=== PATIENT | male | born 1945 | race Caucasian/White ===

== ENCOUNTER → 2016-08-16 | Outpatient (CLI) | payer MEDICARE, OTHER ==
[2016-08-16 13:30] LABS: INR 2.71
== END ==
LOC: M WUC 10:25
PROVIDERS: ATTEND Family Medicine
DX: I48.1 Persistent atrial fibrillation (principal); Z51.81 Encounter for therapeutic drug level monitoring; Z79.01 Long term (current) use of anticoagulants

== ENCOUNTER → 2016-10-23 | Outpatient (CLI) | payer MEDICARE, OTHER ==
[2016-10-23 17:54] LABS: INR 3.86
== END ==
LOC: M WUC 15:16
PROVIDERS: ATTEND Family Medicine
DX: I48.1 Persistent atrial fibrillation (principal); Z51.81 Encounter for therapeutic drug level monitoring; Z79.01 Long term (current) use of anticoagulants

== ENCOUNTER 2016-11-13 08:12 | Inpatient (IN) | payer MEDICARE, OTHER ==
[~2016-11-13] VITALS: Ht 180.3 cm; Wt 151.5 kg
[2016-11-13] MEDS ORDERED: GABA-282 (09:21)
[2016-11-13] MEDS ORDERED: ALLO15TA (09:21)
[2016-11-13] MEDS ORDERED: MICA80TA (09:21)
[2016-11-13] MEDS ORDERED: FLUT1SPR2 (09:21)
[2016-11-13] MEDS ORDERED: SPIR25TA2 (09:21)
[2016-11-13] MEDS ORDERED: DOXA1TAB41 (09:21)
[2016-11-13] MEDS ORDERED: TOPR100T (09:21)
[2016-11-13] MEDS ORDERED: FURO40TA2 PO ×2 (09:21→14:54)
[2016-11-13] MEDS ORDERED: AMLO5TAB2 (09:21)
[2016-11-13] MEDS ORDERED: PRAV20TA2 (09:21)
[2016-11-13] MEDS ORDERED: WARF-23 (09:21)
--- NOTE | 2016-11-13 09:34 | ECGEPIP ---
Stationary ECG Study [facility] - ED Test Date: 2016-11-13 Pat Name: SEA CARLSON Department: Room: - Gender: M Assisted Living Housekeeper: estefanía : 1945 Requested By: ALEJANDRA Allen Order Number: [id number] Reading MD: Ji Montoya Measurements Intervals [place] Rate: 71 P: [place]: 0 QRS: 8 QRSD: 97 T: 2 QT: 411 QTc: 448 Interpretive Statements ATRIAL FLUTTER IN FIXED 4:1 RATIO ABNORMAL RHYTHM ECG NO PRIORS Electronically Signed On 11-13-2016 9:33:53 EDT by Ji Montoya
[2016-11-13 10:27] LABS: BASO % 0.2 % (0.0-1.0); EOS % 0.7 % (0.0-3.0); LARGE UNSTAINED CELL # 0.1 K/mm3 (0.0-0.4); LARGE UNSTAINED CELL % 0.9 % (0.0-4.0); LYMPH # 0.9 K/mm3 (1.5-4.5); LYMPH % 9.8 % (24.0-44.0); MEAN CORPUSCULAR HEMOGLOBIN 32.1 pg (27.0-33.0); MEAN CORPUSCULAR HGB CONC 34.2 g/dl (32.0-36.5); MONO # 0.4 K/mm3 (0.0-0.8); MONO % 4.8 % (0.0-5.0); NEUTROPHILS # 6.7 K/mm3 (1.8-7.7); NEUTROPHILS % 83.6 % (36.0-66.0); PLATELET COUNT, AUTOMATED 166 k/mm3 (150-450); RED CELL DISTRIBUTION WIDTH 14.2 % (11.5-14.5)
--- NOTE | 2016-11-13 10:30 | REP ---
CHEST, TWO VIEWS: Two views of the chest are performed. I have no prior study for comparison. There is mild streaky atelectasis or infiltrate in the left lower lobe. Heart does not appear to be significantly enlarged. Mediastinal silhouette is unremarkable. There are degenerative changes of the spine. IMPRESSION: Mild streaky left lower lobe atelectasis/infiltrate. Signed by Sukhi Dempsey MD 11/13/2016 05:24 P
[2016-11-13 10:47] LABS: ALBUMIN 3.7 GM/DL (3.2-5.2); ALBUMIN/GLOBULIN RATIO 1.09 (1.00-1.93); ALKALINE PHOSPHATASE 99 U/L (45-117); ALT/SGPT 22 U/L (12-78); ANION GAP 8 MEQ/L (8-16); AST/SGOT 12 U/L (15-37); BILIRUBIN,DIRECT 0.1 MG/DL (0.0-0.2); BILIRUBIN,TOTAL 0.5 MG/DL (0.2-1.0); BLOOD UREA NITROGEN 30 MG/DL (7-18); CALCIUM LEVEL 8.1 MG/DL (8.8-10.2); CARBON DIOXIDE LEVEL 25 MEQ/L (21-32); CHLORIDE LEVEL 104 MEQ/L (98-107); CREATININE FOR GFR 1.17 MG/DL (0.70-1.30); GLOMERULAR FILTRATION RATE > 60.0 (>42); GLUCOSE, FASTING 166 MG/DL (83-110); POTASSIUM SERUM 3.9 MEQ/L (3.5-5.1); SODIUM LEVEL 137 MEQ/L (136-145); TOTAL PROTEIN 7.1 GM/DL (6.4-8.2)
[2016-11-13 11:08] LABS: INR 5.75
[2016-11-13] MEDS ORDERED: ISOVUE-370 76% 100ML VIAL (Q9967) As Ordered ONE (11:36)
--- NOTE | 2016-11-13 12:12 | REP ---
CT HEAD WITHOUT CONTRAST: HISTORY: Left hand weakness. There is no intraparenchymal hemorrhage, infarct, mass or midline shift. The ventricular system is normal in appearance. The cortical sulci are dilated consistent with minimal volume loss. There is no extracerebral collection. The visualized sinuses are clear. IMPRESSION: Minimal volume loss. Signed by Dallas Urbina MD 11/13/2016 12:21 P
--- NOTE | 2016-11-13 12:31 | REP ---
CT of the chest, CT pulmonary angiography: There are no comparison studies. There are no emboli in the pulmonary trunk or central pulmonary arteries. I suspect there is an embolus in the left lower lobe main pulmonary artery on page 72. No other lobe or segment branch emboli are identified. There are no infiltrates, effusions or masses. There is discoid atelectasis in the left lower lobe. There is no mediastinal, hilar or axillary lymphadenopathy. The thoracic aorta is unremarkable. Cardiac size is borderline enlarged. In the visualized upper abdomen there is ascites surrounding the liver and spleen. Visualized portions of the gallbladder, pancreas, adrenals and renal upper poles are unremarkable. Impression: Embolus in the left lower lobe pulmonary artery. No other emboli are identified. There is discoid atelectasis in the left lower lobe. There is ascites in the visualized upper abdomen. Signed by Sukhi Bauer MD 11/13/2016 12:23 P
[2016-11-13] MEDS ORDERED: AMLO5TAB2 PO (14:54)
[2016-11-13] MEDS ORDERED: METO-209 PO (14:54)
[2016-11-13] MEDS ORDERED: PRAV20TA2 PO (14:54)
[2016-11-13] MEDS ORDERED: ZYLO300T4 PO (14:54)
[2016-11-13] MEDS ORDERED: SPIR25TA2 PO (14:54)
[2016-11-13] MEDS ORDERED: MOME50SP (14:54)
[2016-11-13] MEDS ORDERED: GABA-282 PO (14:54)
[2016-11-13] MEDS ORDERED: ASPI81TA21 PO (14:54)
[2016-11-13] MEDS ORDERED: TELM1TAB2 PO (14:54)
[2016-11-13] MEDS ORDERED: TYLE500T78 PO (14:54)
[2016-11-13] MEDS ORDERED: DOXA1TAB40 PO (14:54)
[2016-11-13] MEDS ORDERED: WARF-23 PO ×2 (14:55)
[2016-11-13] MEDS ORDERED: ACETAMINOPHEN TAB 650MG DOSE (2X325MG) PO PRN (15:15)
[2016-11-13 15:31] LABS: RETIC HEMOGLOBIN CONTENT CHr 32.6 PG (24-36); RETICULOCYTE ABSOLUTE ADVIA212 69 x10(9)/L (17-77)
[2016-11-13 15:34] LABS: FERRITIN 264 NG/ML (26-388); PERCENT SATURATION 11.8 % (19.7-37.4); TOTAL IRON BINDING CAPACITY 314 UG/DL (250-450)
[2016-11-13 15:53] LABS: AMYLASE 44 U/L (25-115)
--- NOTE | 2016-11-13 15:56 | HPEPDOC ---
General Date of Admission Nov 13, 2016 at 15:11 Chief Complaint The patient is a 71-year-old male Presented to the ER with complaints of LLQ abdominal pain, dizziness, light-headedness and shortness of breath on exertion. History of Present Illness Patient is a 71 year old male with a PMHx of A. fib (on Coumadin), HTN , SUSAN on CPAP, Neuropathy, DLP, Gout, and possibly CHF who presented to the ER with complaints of dizziness, light-headedness, shortness of breath with exertion and left lower quadrant abdominal pain. Patient notes that this LLQ abdominal pain started first on Saturday night and reported the pain as a continuous, 7/10, pressure / achy nature, occasionally radiating to the RLQ, no alleviating or aggravating factors. He denies any diarrhea, reports that he has about 3 bowel movements daily. Reports no abnormalities, including dark color, blood or mucous. He denies any nausea or vomiting. Denies any temporal relationship to food. Reports no change in his weight or appetite. He denies any fever or chills at home. He has had a colonoscopy [place] [address] Molina. Was reported to be normal without any polyps, diverticuli or other abnormalities noted by patient. Was advised that the next colonoscopy would be in 10 years. He denies any chest pain, palpitations, dysuria, muscle weakness / sensory loss. Home Medications Scheduled Allopurinol (Zyloprim) 300 Mg Tab 300 MG PO QHS (Reported) Amlodipine Besylate (Amlodipine Besylate) 5 Mg Tab 5 MG PO QHS (Reported) Aspirin (Aspir-Low) 81 Mg Tab 81 MG PO QHS (Reported) Doxazosin Mesylate (Doxazosin Mesylate) 4 Mg Tab 4 MG PO QHS (Reported) Furosemide (Furosemide) 40 Mg Tab 40 MG PO TID (Reported) Gabapentin (Gabapentin) 300 Mg Cap 300 MG PO TID (Reported) Metoprolol Succinate (Metoprolol Succinate ER) 100 Mg Tab 100 MG PO QHS ( Reported) Pravastatin Sodium (Pravastatin Sodium) 20 Mg Tab 20 MG PO QHS (Reported) Spironolactone (Spironolactone) 25 Mg Tab 25 MG PO DAILY (Reported) Telmisartan (Telmisartan) 80 Mg Tab 80 MG PO QHS (Reported) Warfarin Sod (Warfarin Sodium) 5 Mg Tab 12.5 MG PO 3XW (Reported) SAT, SAT, AND SATURDAY @ BEDTIME Warfarin Sod (Warfarin Sodium) 5 Mg Tab 15 MG PO 2XW (Reported) SATURDAY AND SATURDAY @ BEDTIME Scheduled PRN Acetaminophen (Tylenol Extra Strength) 500 Mg Tab 1,000 MG PO TID PRN PRN PAIN ( Reported) Mometasone Furoate Monohydrate (Nasonex) 120 [place]/17 Gm Naspr 2 SPRAY NA DAILY PRN PRN CONGESTION (Reported) Allergies Coded Allergies: No Known Allergies (Unverified , 11/13/16) Past Medical History Medical History A. fib (on Coumadin), HTN, SUSAN on CPAP, Neuropathy, DLP, Gout, and possibly CHF Surgical History None Family History - Non-contributory Social History - Denies the use of illicit drugs; Social alcohol use; Quit smoking in 1978 and smoked for >30 years at 3ppd - Denies recent travel or sick contacts - Lives with Review of Symptoms Other systems Constitutional: Denies weight loss, change in appetite, or recent trauma Eyes: No visual changes or eye pain Ears, Nose, Throat: Denies nose bleeds, or difficulty swallowing Cardiovascular: Denies chest pain, sweating, or orthopnea Respiratory: Denies cough or wheezing, Posiitve shortness of breath GI: Zana nausea, vomiting, diarrhea or constipation; Positive abdominal pain : Denies pain with urination or frequency Musculoskeletal: Denies joint pain or swelling Neuro / Psych: Denies muscle weakness or sensory loss Skin: No skin rashes noted All other review of systems negative; otherwise stated in history of present illness Vital Signs - Vitals: BP 119/59, HR 84, RR 16, Sat 96%RA, Temp 98.3 - General: Lying in bed, No acute distress, Speaking in full sentences, AAOx3 - HEENT: NC, AT, PERRLA, EOMI - CVS: Irregularly irregular, +S1S2 - Lungs: Fair air entry bilaterally, Clear to auscultation, No wheezing / rales / rhonchi - Abdomen: Soft, Non-distended, Mild tenderness at LLQ, + Bowel sounds x 4 - Extremities: + PPx4, No lower extremity edema, No calf tenderness - Neuro: No focal motor or sensory deficit - Skin: No visible rashes Laboratory Data Labs 24H Laboratory Tests 2 11/13/16 10:04: Absolute Reticulocyte Count 69, Aspartate Amino Transf (AST/SGOT) 12L, Alanine Aminotransferase (ALT/SGPT) 22, Alkaline Phosphatase 99, Total Bilirubin 0.5, Direct Bilirubin 0.1, Albumin 3.7, Albumin/Globulin Ratio 1.09, Anion Gap 8, White Blood Count 8.0, Red Blood Count 2.84L, Hemoglobin 9.1L, Hematocrit 26.7L , Mean Corpuscular Volume 94.0, Mean Corpuscular Hemoglobin 32.1, Mean Corpuscular Hemoglobin Concent 34.2, Red Cell Distribution Width 14.2, Platelet Count 166, Neutrophils (%) (Auto) 83.6H, Lymphocytes (%) (Auto) 9.8L, Monocytes (%) (Auto) 4.8, Eosinophils (%) (Auto) 0.7, Basophils (%) (Auto) 0.2, Neutrophils # (Auto) 6.7, Lymphocytes # (Auto) 0.9L, Monocytes # (Auto) 0.4, Eosinophils # (Auto) 0.0, Basophils # (Auto) 0.0, Calcium Level 8.1L, Ferritin 264, Glomerular Filtration Rate > 60.0, Iron Level 37L, Large Unclassified Cells # 0.1, Large Unclassified Cells % 0.9, Percent Reticulocyte Count 2.50H, Prothromb Time International Ratio 5.75*H, Prothrombin Time 51.6H, Reticulocyte Hgb Content (CHr) 32.6, Thyroid Stimulating Hormone (TSH) 2.990, Total Iron Binding Capacity 314, Total Protein 7.1, Transferrin % Saturation 11.8L 11/13/16 13:01: Urine Amorphous Sediment , Urine Appearance CLEAR, Urine Color YELLOW, Urine pH 5.0, Urine Specific [place] 1.030, Urine Protein NEGATIVE, Urine Glucose (UA) NEGATIVE, Urine Ketones NEGATIVE, Urine Urobilinogen 0.2, Urine Bilirubin NEGATIVE, Urine Leukocyte Esterase NEGATIVE, Urine Bacteria (Auto) NEGATIVE, Urine Blood NEGATIVE, Urine Calcium Carbonate Cryst(Auto) , Urine Calcium Oxalate Cryst (Auto) , Urine Calcium Phosphate Hui (Auto) , Urine Cellular Casts , Urine Cystine Crystals , Urine Granular Casts (Auto) , Urine Hyaline Casts (Auto) 6, Urine Leucine Crystals , Urine Mucus (Auto) SMALL, Urine Nitrite NEGATIVE, Urine Oval Fat Bodies (Auto) , Urine RBC (Auto) 0, Urine Renal Epithelial Cells , Urine Sperm (Auto) , Urine Squamous Epithelial Cells 1 , Urine Transitional Epithelial Cells , Urine Trichomonas (Auto) , Urine Triple Phosphate Cryst (Auto) , Urine Tyrosine Crystals , Urine Uric Acid Crystals ( Auto) , Urine WBC (Auto) 2, Urine Waxy Casts (Auto) , Urine Yeast-Like Cells ( Auto) CBC/BMP Laboratory Tests 11/13/16 10:04 Red Blood Count 2.84 L, Mean Corpuscular Volume 94.0, Mean Corpuscular Hemoglobin 32.1, Mean Corpuscular Hemoglobin Concent 34.2, Red Cell Distribution Width 14.2, Neutrophils (%) (Auto) 83.6 H, Lymphocytes (%) (Auto) 9.8 L, Monocytes (%) (Auto) 4.8, Eosinophils (%) (Auto) 0.7, Basophils (%) (Auto ) 0.2, Neutrophils # (Auto) 6.7, Lymphocytes # (Auto) 0.9 L, Monocytes # (Auto) 0.4, Eosinophils # (Auto) 0.0, Basophils # (Auto) 0.0 Plan / VTE VTE Prophylaxis Ordered?: Yes Plan Plan Abdominal pain - possibly 2/2 abscess, possibly malignancy, possibly hematoma - Presented with abdominal pain since Saturday; No associated fever / chills - WBC count appears to be elevated from a baseline level of <5 with a neutrophil predominant shift - CT abdomen / pelvis reveals a possible abscess and diverticula, possibly malignancy - Will check Amylase and Lipase - Will get blood cultures, trend CRP - Will reverse the effects of Coumadin; Vitamin K 5mg IV, 2 units of FFP, 2 units of PRBC (Discussed risks and benefits of reversing Coumadin to patient - given that there are possible findings of thrombosis at pulmonary arteries) - Will start Zosyn (coverage of gram negative and anaerobes) - Will repeat imaging in 24-48 hours to evaluate stabilization of Hematoma - Discussed with Surgery (Dr. Castle) - will be on consult; agreed that reversing Coumadin at this time would be indicated given hematoma and supra- therapeutic INR Normocytic anemia - Hg baseline of 13-14; currently at 9 - Will type and screen, check Iron panel, reticulocyte count - Will follow H&H q6 hours - Will transfuse 2units PRBC at this time and reverse effects of Coumadin Supra-therapeutic INR - INR of 5.75 - Has not had any recent change in dose - Will hold Coumadin tonight - Will reverse Coumadin with Vitamin K 5 mg IV and 2 units FFP - Follow up AM INR Suspected left lower lobe pulmonary artery embolus - less likely given supra- therapeutic INR and other findings on imaging - CTA chest shows suspected LL pulmonary artery embolus, and discoid atelectasis on the LLL - Given clinical picture of bleeding into Hematoma, Hg significantly lower than baseline, supra-therapeutic INR will need to reverse Coumadin first - Will reverse effects of Coumadin - Risks and benefits discussed with patient - Will keep in PCU for further monitoring - Will need to repeat imaging in 24-48 hours to re-evaluate suspected embolus Elevated glucose possibly reactive - will check HbA1c A. fib - Will continue with rate control with metoprolol - Will hold Coumadin given elevated INR HTN - Will c/w metoprolol and amlodipine - Will hold Doxasozin and Telmesartan SUSAN on CPAP - allow home CPAP use Neuropathy - c/w gabapentin DLP - c/w pravastatin Gout - c/w allopurinol Possibly CHF - no ECHO report available - Has been on spironolactone / Lasix at home - Will hold diuretics at this time Gastrointestinal prophylaxis - Will start protonix DVT prophylaxis - On full anticoagulation with Coumadin; but will hold given elevated INR - Will start SCDs ZOILA GAMING MD Nov 13, 2016 15:56
[2016-11-13] MEDS: PIPERACILLIN/TAZOBACTAM SOD 3.375 GM in D5W MINI-BAG PLUS 50 ML IV SCH (15:57)
[2016-11-13] MEDS: NS 1,000 ML IV SCH (15:57)
[2016-11-13] MEDS ORDERED: FLUTICASONE PROP 0.05% NASAL SPRAY 16 GM (FLONASE) PRN (16:00)
[2016-11-13] MEDS: GABAPENTIN 300 MG CAP PO SCH ×2 (17:32→21:56)
[2016-11-13] MEDS: PANTOPRAZOLE 40MG TAB (PROTONIX) PO SCH (17:32)
[2016-11-13] MEDS ORDERED: FUROSEMIDE 40 MG TAB PO SCH (18:00)
[2016-11-13] MEDS ORDERED: PHYTONADIONE INJection 5 MG in NS 50 ML IV ONE (18:30)
[2016-11-13 20:00] VITALS: BP 112/60
--- NOTE | 2016-11-13 20:17 | CR ---
DATE OF CONSULTATION: 11/13/2016 CHIEF COMPLAINT: Abdominal pain, abnormal CT scan. BRIEF HISTORY OF PRESENT ILLNESS: The patient is a 71-year-old male who presents to the emergency room with a several day history of abdominal pain, left lower quadrant, some dizziness, lightheadedness and shortness of breath on exertion. Essentially he comes to the emergency room with a supratherapeutic INR and underwent a CT scan which revealed some abnormalities concerning for possible mass on the colon, although when I review it, I feel that this is more likely a hematoma and he has some fluid collections under the diaphragm bilaterally, which tracked down into the paracolic gutters bilaterally. In any case, he has not had any blood per rectum, has not had any lower gastrointestinal (GI) complaints. No nausea, no vomiting. No fevers. No chills. Has had this pain for about 3 days now and states that this has been painful with activity, pain that extends across the lower abdomen and more importantly, notices that the pain is more like a pressure sensation. He has had no fevers, no chills. No evidence of diverticular abscesses or diverticulitis in the past. Medications include: allopurinol, amlodipine, aspirin, doxazosin, Lasix, gabapentin, metoprolol, pravastatin, spirolactone, telmisartan , Coumadin. Past medical history significant for atrial fibrillation, hypertension, obstructive sleep apnea, diabetes mellitus, diabetic neuropathy, gout, congestive heart failure (CHF). Physical exam reveals a morbidly obese male who looks stated age. HEENT is unremarkable. Neck: Supple without adenopathy. Lungs: Clear to a auscultation without crackles, wheezes or rhonchi. However, they are substantially diminished at the bases. Heart is irregularly irregular. Abdomen is mildly distended. Mild tenderness in the left lower quadrant, left-sided and almost left flank area but closer to the left lateral abdomen is a better description of this. He has no peritoneal signs. No guarding, no rebound. He has an ecchymosis on his right anterior abdomen, and there is some duskiness to the abdominal wall in the left lateral abdomen. It is hard to tell if this is a deep ecchymosis present, but he has not noticed this in the past. His white count is normal, but he is anemic. His INR is 5.75. IMPRESSION AND PLAN: The patient has abdominal pain. The question initially was whether this was an abdominal mass or an abscess, but I feel that this is much more likely to be a hematoma and possibly intraperitoneal bleed. My recommendation at this time is to reverse his anticoagulation, although I do feel that this has to be somewhat gingerly performed because of the questionable pulmonary embolism, although that would seem very unlikely in someone who is supratherapeutic. However, once again, I do feel that it is reasonable to at least start his reversal of his anticoagulation and follow his hematocrit closely. Of course, proceeding with a colonoscopy at some point in the future is reasonable given that it has been several years since his last colonoscopy, but I feel that this is a very low likelihood that it is colonic in etiology. This can be performed as an outpatient unless he starts having some gastrointestinal (GI) complaints associated with his current admission. Otherwise, if he stabilizes, and his abdominal pain is well controlled, I feel that he should be able to be discharged to home with followup colonoscopy as an outpatient. PJ
[2016-11-13] MEDS: PRAVASTATIN 20 MG TAB PO SCH (21:31)
[2016-11-13] MEDS: ALLOPURINOL 300 MG TAB PO SCH (21:31)
[2016-11-13] MEDS: TELMISARTAN 20 MG TAB PO SCH (21:32)
[2016-11-13] MEDS: METOPROLOL SUCC (TopROL XL) 100MG *XL* TAB PO SCH (21:32)
[2016-11-13] MEDS: amLODIPine 5 MG TAB PO SCH (21:56)
[2016-11-13] MEDS: ASPIRIN 81 MG ENTERIC TAB PO SCH (22:11)
[2016-11-14] VITALS (7 sets, daily range): BP systolic 109–135; BP diastolic 55–86
[2016-11-14] MEDS ORDERED: diphenhydrAMINE INJ 50MG/ML VIAL (J1200) As Ordered ONE (01:05)
[2016-11-14] MEDS ORDERED: ZOSYN 3.375 GM VIAL (J2543) As Ordered ONE (01:10)
[2016-11-14] MEDS: PIPERACILLIN/TAZOBACTAM SOD 3.375 GM in D5W MINI-BAG PLUS 50 ML IV SCH ×3 (01:30→16:25)
[2016-11-14 07:23] LABS: BASO % 0.1 % (0.0-1.0); EOS # 0.1 K/mm3 (0.0-0.50); EOS % 1.7 % (0.0-3.0); LARGE UNSTAINED CELL # 0.1 K/mm3 (0.0-0.4); LARGE UNSTAINED CELL % 1.4 % (0.0-4.0); LYMPH # 1.1 K/mm3 (1.5-4.5); LYMPH % 16.9 % (24.0-44.0); MEAN CORPUSCULAR HEMOGLOBIN 31.6 pg (27.0-33.0); MEAN CORPUSCULAR HGB CONC 33.8 g/dl (32.0-36.5); MEAN CORPUSCULAR VOLUME 93.5 fl (80.0-96.0); MONO # 0.4 K/mm3 (0.0-0.8); MONO % 7.2 % (0.0-5.0); NEUTROPHILS # 4.3 K/mm3 (1.8-7.7); NEUTROPHILS % 72.8 % (36.0-66.0); PLATELET COUNT, AUTOMATED 140 k/mm3 (150-450); RED CELL DISTRIBUTION WIDTH 14.3 % (11.5-14.5); WHITE BLOOD COUNT 5.9 K/mm3 (4.0-10.0)
[2016-11-14 07:34] LABS: INR 1.52
[2016-11-14 07:48] LABS: ALBUMIN 3.5 GM/DL (3.2-5.2); ALBUMIN/GLOBULIN RATIO 1.25 (1.00-1.93); ALKALINE PHOSPHATASE 89 U/L (45-117); ALT/SGPT 20 U/L (12-78); ANION GAP 8 MEQ/L (8-16); AST/SGOT 15 U/L (15-37); BILIRUBIN,TOTAL 1.5 MG/DL (0.2-1.0); BLOOD UREA NITROGEN 29 MG/DL (7-18); CALCIUM LEVEL 7.8 MG/DL (8.8-10.2); CARBON DIOXIDE LEVEL 25 MEQ/L (21-32); CHLORIDE LEVEL 103 MEQ/L (98-107); CREATININE FOR GFR 1.11 MG/DL (0.70-1.30); GLOMERULAR FILTRATION RATE > 60.0 (>42); GLUCOSE, FASTING 147 MG/DL (83-110); MAGNESIUM LEVEL 2.2 MG/DL (1.8-2.4); PHOSPHORUS LEVEL 2.7 MG/DL (2.5-4.9); POTASSIUM SERUM 3.8 MEQ/L (3.5-5.1); SODIUM LEVEL 136 MEQ/L (136-145); TOTAL PROTEIN 6.3 GM/DL (6.4-8.2)
[2016-11-14] MEDS: GABAPENTIN 300 MG CAP PO SCH ×3 (08:41→20:39)
[2016-11-14] MEDS: NS 1,000 ML IV SCH (08:41)
[2016-11-14] MEDS: PANTOPRAZOLE 40MG TAB (PROTONIX) PO SCH (08:41)
[2016-11-14] MEDS ORDERED: SPIRONOLACTONE 25 MG TAB PO SCH (09:00)
--- NOTE | 2016-11-14 09:12 | REP ---
CT abdomen pelvis with IV contrast: The study is a continuation of the CT of the chest utilizing the same IV contrast as for the chest CT. There are no comparison studies. There is ascites surrounding the liver and spleen. There is a small round hypodense 8 mm lesion in the right lobe of the liver, nonspecific. The gallbladder, pancreas and spleen are otherwise unremarkable. There is a 2.2 cm left adrenal nodule. Follow-up CT using adrenal protocol is recommended. The right adrenal is unremarkable. The right and left kidneys are unremarkable. The abdominal aorta is unremarkable. There is a large mass along the peritoneal surface of the abdomen and pelvis on the left measuring 20 cm craniocaudad by 13 cm AP containing multiple hypo densities. This is immediately adjacent to the descending colon. There are multiple diverticula in the descending colon. This mass could represent a large complex diverticular abscess and phlegmon. There is no bowel distension or obstruction. Pelvis: There is no ascites. Bladder is unremarkable. There is no adenopathy. There are numerous diverticula in the descending colon and sigmoid colon. Impression: There is a large mass along the peritoneum of the abdomen and pelvis on the left adjacent to the descending colon. The colon contains multiple diverticula. This mass contains multiple low density foci and could represent a large complex diverticular abscess. Neoplasm is another possibility. There is ascites surrounding the liver and spleen. There is a left adrenal nodule. Follow-up adrenal CT protocol for further evaluation is recommended. There is a small nonspecific hypodense nodule in the liver. Signed by Sukhi Bauer MD 11/14/2016 09:04 A
[2016-11-14] MEDS ORDERED: SODIUM BICARBONATE 8.4% INJ 50MEQ 50 ML VIAL As Ordered ONE (10:38)
[2016-11-14] MEDS ORDERED: ISOVUE-300 61% 50ML VIAL (Q9967) As Ordered ONE (10:38)
[2016-11-14] MEDS ORDERED: FUROSEMIDE 40 MG TAB PO ONE (14:45)
--- NOTE | 2016-11-14 15:06 | IPN ---
DATE: 11/14/2016 71-year-old male seen at bedside. No overnight issues reports. He feels that he is feeling better. He did have an IVC filter placed earlier this morning. His Coumadin has been on hold due to the abdominal mass with suspected intra-abdominal hematoma and supratherapeutic INR. OBJECTIVE: Temperature is 98.3, pulse 75, respiratory rate is 18, blood pressure 122/86, SpO2 is 97% on room air. GENERAL: The patient appears to be in no acute distress, alert, oriented and pleasant. LUNGS: Clear. HEART: Irregularly irregular. ABDOMEN: Obese. He does have a large hematoma noted on the right upper portion of the abdomen. EXTREMITIES: Trace edema but no calf tenderness. LABORATORY DATA: White count is 5.9, hemoglobin 8.0, platelets are 140,000. Sodium 136, potassium 3.8, chloride 103, bicarb 25, anion gap 8, BUN 29, creatinine 1.11, glucose is 147, calcium 7.8, phosphorous 2.7, magnesium 2.2, total bilirubin 1.5, AST 15, ALT 20, alkaline phosphatase 89, albumin 3.5, INR 1.52. Blood cultures are pending times two. ASSESSMENT/PLAN: 1. Abdominal pain possibly related to abscess versus malignancy versus possible hematoma. He did have a drop in his hemoglobin and hematocrit. Will go ahead and give him another 2 units of blood. Coumadin is currently on hold. Last night he did receive vitamin K, 2 units of FFP and 2 units of packed red blood cells. He does not appear to be actively bleeding anywhere. He is started on gram negative coverage and anaerobes with Zosyn. Per recommendations of Dr. Castle CT of the abdomen and pelvis is recommended in 24-48 hours. 2. Normocytic anemia. Likely acute blood loss anemia. Again, Coumadin is on hold. I did go ahead and give him another 2 units since his hemoglobin is at 8 and it has not risen as I would have expected. Will give him 40 mg of Lasix between the first and second transfusion. 3. Supratherapeutic INR. INR initially was 5.75. After receiving FFP and vitamin K he was down to 1.52 and will continue to follow. 4. Elevated glucose. Will continue to follow fingerstick. Will consider adding on sliding scale insulin if need be. 5. Atrial fibrillation. He is rate controlled. Coumadin is currently on hold as indicated above. 6. Hypertension. Continue with metoprolol and amlodipine, holding doxazosin and telmisartan. 7. Obstructive sleep apnea (SUSAN) on CPAP. He should use his home CPAP machine. 8. Neuropathy. Continue gabapentin. 9. Hyperlipidemia. Continue pravastatin. 10. Gout. Continue allopurinol. 11. Possible congestive heart failure (CHF). No echo report available. He has been on spironolactone and Lasix at home. Will hold his diuretics for the time being. 12. Gastrointestinal (GI) prophylaxis on Protonix. 13. Deep vein thrombosis (DVT) prophylaxis. Anticoagulation held for the time being. Will continue to follow the INR and continue with thromboembolic deterrent stockings (TEDS) and sequential compression devices (SCD). DISPOSITION: I did have a chance to review the CT angio with the day time radiologist. There is still some question of whether or not his questionable PE is an artifact. At any rate, he did receive an IVC filter, this should suffice. I did consider doing an ultrasound of the lower extremities, however even if he did have a DVT present the IVC filter is already in place. Therefore will hold off on doing any Doppler's of the lower extremities at this point. At any rate, since he did drop his hemoglobin and hematocrit I am going to go ahead and order a CT scan of the abdomen and pelvis for followup tomorrow morning given the fact that he is hemodynamically stable, his hemoglobin and hematocrit has not dropped any further, but it has also not had a significant increase. Therefore, will continue with a repeat 2 units of packed red blood cells with transfusion and continue to monitor his hemoglobin and hematocrit every 6 hours.
--- NOTE | 2016-11-14 17:29 | REPKIM ---
PROCEDURE: Inferior venacavagram and placement of an IVC filter MEDICAL DIAGNOSIS/CLINICAL HISTORY: Pulmonary embolism, left abdominal wall hematoma and bleeding. Patient is at high risk for subsequent pulmonary embolism and cannot be reliably anticoagulated at this time. INTERVENTIONALIST: Chapis Barahona MD WRAPPING MACHINE OPERATOR: MIGUELITO Keys IV MEDICATIONS: Local Lidocaine 2% CONTRAST: 23 mL, Isovue 300 EBL: less than 10 mL FLUORO TIME: 1.7 minutes DEVICE USED: Cook Celect IVC filter Lot# [id number] Procedure: The risks, benefits, and alternatives of the use of a vena cava filter were discussed with the patient and informed written consent was obtained. The patient was brought to the interventional radiology suite where a timeout procedure was performed. The right neck was prepped and draped in a sterile fashion. After local anesthetic was established, the right internal jugular vein was punctured using a micropuncture needle under ultrasound guidance. A 7-Icelandic catheter was inserted into the lower IVC vein. Contrast was injected, serial DSA images of the abdomen were obtained and the transverse diameter of the IVC was calculated. The distance from the lowest renal vein to the common iliac vein confluence was ascertained. The filter introducer system was then positioned in the infrarenal IVC over the guidewire. Under fluoroscopic guidance, the filter was inserted into the introducer, carefully positioned and successfully deployed. The introducer was removed and complete hemostasis was achieved with manual pressure. The patient tolerated the procedure well without immediate complication. This procedure was performed using ultrasound and fluoroscopy. FINDINGS: 1) The right IJ vein is patent and compressible. 2) The IVC is normal in course and caliber. 3) Successful placement of IVC filter in a satisfactory position and configuration. IMPRESSION: Successful IVC filter placement as discussed above. The Celect IVC filter can stay permanently or can be retrievable. Once the need for caval filter ration has passed, please contact interventional radiology, for filter retrieval if clinically desired. Dr. Barahona was present for this procedure as documented in the progress notes. cc: DO PJ Kenny
[2016-11-14] MEDS: TELMISARTAN 20 MG TAB PO SCH (20:37)
[2016-11-14] MEDS: ALLOPURINOL 300 MG TAB PO SCH (20:38)
[2016-11-14] MEDS: METOPROLOL SUCC (TopROL XL) 100MG *XL* TAB PO SCH (20:38)
[2016-11-14] MEDS: ASPIRIN 81 MG ENTERIC TAB PO SCH (20:39)
[2016-11-14] MEDS: amLODIPine 5 MG TAB PO SCH (20:39)
[2016-11-14] MEDS: PRAVASTATIN 20 MG TAB PO SCH (20:39)
[2016-11-15] VITALS (7 sets, daily range): BP systolic 111–138; BP diastolic 55–74
[2016-11-15] MEDS: PIPERACILLIN/TAZOBACTAM SOD 3.375 GM in D5W MINI-BAG PLUS 50 ML IV SCH ×4 (00:09→23:52)
[2016-11-15 06:21] LABS: BASO % 0.3 % (0.0-1.0); EOS # 0.2 K/mm3 (0.0-0.50); EOS % 2.5 % (0.0-3.0); INR 1.31; LARGE UNSTAINED CELL # 0.1 K/mm3 (0.0-0.4); LARGE UNSTAINED CELL % 1.6 % (0.0-4.0); LYMPH # 1.2 K/mm3 (1.5-4.5); LYMPH % 16.7 % (24.0-44.0); MEAN CORPUSCULAR HEMOGLOBIN 30.6 pg (27.0-33.0); MEAN CORPUSCULAR HGB CONC 33.5 g/dl (32.0-36.5); MEAN CORPUSCULAR VOLUME 91.2 fl (80.0-96.0); MONO # 0.5 K/mm3 (0.0-0.8); MONO % 7.3 % (0.0-5.0); NEUTROPHILS # 4.6 K/mm3 (1.8-7.7); NEUTROPHILS % 71.6 % (36.0-66.0); PLATELET COUNT, AUTOMATED 141 k/mm3 (150-450); RED CELL DISTRIBUTION WIDTH 15.2 % (11.5-14.5); WHITE BLOOD COUNT 6.4 K/mm3 (4.0-10.0)
[2016-11-15] MEDS ORDERED: GASTROGRAFIN SOLUTION 30ML PO ONE ×2 (06:30→09:45)
[2016-11-15 06:37] LABS: ALBUMIN 3.3 GM/DL (3.2-5.2); ALBUMIN/GLOBULIN RATIO 1.03 (1.00-1.93); ALKALINE PHOSPHATASE 84 U/L (45-117); ALT/SGPT 23 U/L (12-78); ANION GAP 7 MEQ/L (8-16); AST/SGOT 17 U/L (15-37); BILIRUBIN,TOTAL 1.1 MG/DL (0.2-1.0); BLOOD UREA NITROGEN 22 MG/DL (7-18); CALCIUM LEVEL 7.8 MG/DL (8.8-10.2); CARBON DIOXIDE LEVEL 28 MEQ/L (21-32); CHLORIDE LEVEL 105 MEQ/L (98-107); CREATININE FOR GFR 0.95 MG/DL (0.70-1.30); GLOMERULAR FILTRATION RATE > 60.0 (>42); GLUCOSE, FASTING 124 MG/DL (83-110); MAGNESIUM LEVEL 2.2 MG/DL (1.8-2.4); PHOSPHORUS LEVEL 2.2 MG/DL (2.5-4.9); POTASSIUM SERUM 3.6 MEQ/L (3.5-5.1); SODIUM LEVEL 140 MEQ/L (136-145); TOTAL PROTEIN 6.5 GM/DL (6.4-8.2)
[2016-11-15] MEDS ORDERED: GASTROGRAFIN SOLUTION 30ML (Q9963) PO ONE ×2 (07:00→10:15)
[2016-11-15] MEDS: PANTOPRAZOLE 40MG TAB (PROTONIX) PO SCH (08:20)
[2016-11-15] MEDS: GABAPENTIN 300 MG CAP PO SCH ×3 (08:20→21:01)
[2016-11-15] MEDS ORDERED: ISOVUE-370 76% 100ML VIAL (Q9967) As Ordered ONE (10:51)
--- NOTE | 2016-11-15 13:22 | REP ---
REASON FOR EXAM: Abdominal pain. CONTRAST: 100 mL of Isovue 370. COMPARISON EXAM: 11/13/2016. There is no change in the appearance of the lung bases. Dependent subsegmental atelectatic changes are seen status quo. There are no pleural or pericardial effusions. The liver, gallbladder, spleen, pancreas, adrenal glands, and kidneys are unchanged. There is a tiny left adrenal gland nodule and a tiny hepatic cyst status quo. The abdominal aorta and paraaortic regions are essentially unchanged. There are multiple borderline paraaortic lymph nodes which retain their fatty cindy status quo. There is a [place] filter in the inferior vena cava the tip of which is below the renal veins. This represents a change from the prior exam. There is ascites the degree of which has not changed significantly possibly slightly decreased versus positional change. The bowel loops and their mesenteries are essentially unchanged. There is no evidence of free air. CT PELVIS: The pelvic bowel loops and their mesenteries are unchanged. There is no evidence of free air in the pelvis. There is a small amount of free fluid in the upper pelvis status quo. Bone window technique throughout the exam shows no change in the osseous structures. IMPRESSION: There is a [place] filter catheter in the inferior vena cava as described above. This represents a change from the prior exam. Otherwise, there are no significant changes from 11/13/2016 with findings as described above. Signed by Gumaro Paul DO 11/15/2016 02:24 P
--- NOTE | 2016-11-15 13:57 | IPN ---
DATE OF SERVICE: 11/15/2016 A 71-year-old seen at bedside. No overnight issues reported. He is resting comfortably. No chest pain, nausea, vomiting, no abdominal pain. OBJECTIVE: Temperature is 98.2, pulse 63, respiratory rate is 18, blood pressure (BP) 118/60, SpO2 is 95% on room air. General: The patient appears to be in no acute distress. He is pleasant. HEENT: Unremarkable. Lungs: Clear. Heart: Regular rate and rhythm. Abdomen is obese, soft, nontender, nondistended, with positive bowel sounds. No masses. No rebound. Extremities: No edema. No calf tenderness. LABORATORIES: White count 6.4, hemoglobin 8.7, platelets 141,000. Sodium 140, potassium 3.6, chloride 105, bicarbonate 28, anion gap 7, BUN is 22, creatinine 0.95, glucose 124, phosphorus 2.2, magnesium 2.2, total bilirubin 1.1 down from 1.5, AST 17, ALT 23, alkaline phosphatase 84, CRP is 2.98 down from 3.52. INR 1.31. Blood cultures negative times two. Stool for occult blood is negative. Repeat CT of the abdomen and pelvis: A [place] filter is noted in the inferior vena cava. No mention of the previously-suspected mass, but there does not appear to be otherwise any significant interval change. ASSESSMENT AND PLAN: 1. Abdominal pain, possibly related to abscess versus malignancy, possible hematoma. I am not going to do any further blood transfusions. I would like to watch him overnight. He does appear to be doing well otherwise. I did speak to Dr. Castle this morning. He will likely need outpatient followup and likely be scheduled for a close followup colonoscopy. 2. Normocytic anemia, likely secondary to acute blood loss anemia. His Coumadin is on hold. Will plan on likely holding this for the next couple of weeks. Again, he does have an inferior vena cava (IVC) filter in place but no signs of ongoing clots. 3. Supratherapeutic international normalized ratio (INR). This is actually now below 2. Will continue to follow. Again, holding his Coumadin. He can be restarted a week or so after he has colonoscopy done. 4. Elevated glucose. Continue to watch the fingersticks with sliding scale coverage. 5. Atrial fibrillation. He is rate controlled. Again, Coumadin is on hold. Likely will need outpatient colonoscopy. 6. Hypertension. Continue with metoprolol and amlodipine. Holding doxazosin and telmisartan. 7. Chronic obstructive pulmonary disease (COPD). On continuous positive airway pressure (CPAP). 8. Neuropathy. Continue gabapentin. 9. Hyperlipidemia. Continue pravastatin. 10. Gout. Continue allopurinol. 11. Prior history of what sounds like congestive heart failure. Continue on spironolactone and Lasix. Once he has been discharged, he can resume his regular doses. 12. Gastrointestinal (GI) prophylaxis, on Protonix. 13. Deep venous thrombosis (DVT) prophylaxis. Thromboembolic deterrents (TEDs) and sequentials. DISPOSITION: Will see how he does over the next 24 hours. Monitor his hemoglobin and hematocrit. If he is doing well tomorrow, likely discharge. Followup with Dr. Castle within the next week and outpatient colonoscopy.
[2016-11-15] MEDS: METOPROLOL SUCC (TopROL XL) 100MG *XL* TAB PO SCH (21:00)
[2016-11-15] MEDS: PRAVASTATIN 20 MG TAB PO SCH (21:01)
[2016-11-15] MEDS: amLODIPine 5 MG TAB PO SCH (21:01)
[2016-11-15] MEDS: TELMISARTAN 20 MG TAB PO SCH (21:01)
[2016-11-15] MEDS: ASPIRIN 81 MG ENTERIC TAB PO SCH (21:01)
[2016-11-15] MEDS: ALLOPURINOL 300 MG TAB PO SCH (21:07)
[2016-11-16] VITALS: BP_SYST 122; BP_SYST 90; BP_DIAS 58; BP_DIAS 64
[2016-11-16 04:00] VITALS: BP 100/51
[2016-11-16 05:44] LABS: BASO % 0.4 % (0.0-1.0); EOS # 0.2 K/mm3 (0.0-0.50); EOS % 2.9 % (0.0-3.0); LARGE UNSTAINED CELL # 0.2 K/mm3 (0.0-0.4); LARGE UNSTAINED CELL % 2.6 % (0.0-4.0); LYMPH # 1.2 K/mm3 (1.5-4.5); LYMPH % 18.3 % (24.0-44.0); MEAN CORPUSCULAR HEMOGLOBIN 32.1 pg (27.0-33.0); MEAN CORPUSCULAR HGB CONC 34.3 g/dl (32.0-36.5); MEAN CORPUSCULAR VOLUME 93.5 fl (80.0-96.0); MONO # 0.5 K/mm3 (0.0-0.8); MONO % 7.7 % (0.0-5.0); NEUTROPHILS # 4.4 K/mm3 (1.8-7.7); NEUTROPHILS % 68.1 % (36.0-66.0); PLATELET COUNT, AUTOMATED 145 k/mm3 (150-450); RED CELL DISTRIBUTION WIDTH 15.2 % (11.5-14.5); WHITE BLOOD COUNT 6.4 K/mm3 (4.0-10.0)
[2016-11-16 05:57] LABS: INR 1.21
[2016-11-16 06:10] LABS: ALBUMIN 3.3 GM/DL (3.2-5.2); ALKALINE PHOSPHATASE 82 U/L (45-117); ALT/SGPT 19 U/L (12-78); ANION GAP 8 MEQ/L (8-16); AST/SGOT 16 U/L (15-37); BILIRUBIN,TOTAL 0.9 MG/DL (0.2-1.0); BLOOD UREA NITROGEN 16 MG/DL (7-18); CALCIUM LEVEL 8.1 MG/DL (8.8-10.2); CARBON DIOXIDE LEVEL 28 MEQ/L (21-32); CHLORIDE LEVEL 105 MEQ/L (98-107); CREATININE FOR GFR 0.97 MG/DL (0.70-1.30); GLOMERULAR FILTRATION RATE > 60.0 (>42); GLUCOSE, FASTING 118 MG/DL (83-110); MAGNESIUM LEVEL 2.2 MG/DL (1.8-2.4); PHOSPHORUS LEVEL 2.7 MG/DL (2.5-4.9); POTASSIUM SERUM 3.7 MEQ/L (3.5-5.1); SODIUM LEVEL 141 MEQ/L (136-145); TOTAL PROTEIN 6.6 GM/DL (6.4-8.2)
[2016-11-16 08:00] VITALS: BP 120/55
[2016-11-16] MEDS: PIPERACILLIN/TAZOBACTAM SOD 3.375 GM in D5W MINI-BAG PLUS 50 ML IV SCH (08:49)
[2016-11-16] MEDS: PANTOPRAZOLE 40MG TAB (PROTONIX) PO SCH (08:49)
[2016-11-16] MEDS: GABAPENTIN 300 MG CAP PO SCH (08:49)
--- NOTE | 2016-11-16 15:41 | DSES ---
DATE OF ADMISSION: 11/13/2016 DATE OF DISCHARGE: 11/16/2016 PRIMARY CARE PROVIDER: Charline Valle CONSULTANTS: Dr. Castle PROCEDURES PERFORMED: None. COMPLICATIONS: None. ADMISSION/DISCHARGE DIAGNOSES: 1. Acute blood loss anemia, stable. 2. Abdominal pain with questionable abdominal mass, possibly related to intra-abdominal hematoma, symptoms resolved. 3. Supratherapeutic INR with reversal Coumadin on hold. 4. Elevated glucose. 5. Atrial fibrillation, rate controlled. Coumadin again on hold. 6. Hypertension, stable. 7. Chronic obstructive pulmonary disease (COPD). 8. Obstructive sleep apnea (SUSAN). 9. Chronic neuropathy. 10. Hyperlipidemia. 11. Gout. 12. Questionable history of congestive heart failure (CHF). BRIEF HOSPITAL COURSE: Mr. Hare is a pleasant 71-year-old gentleman who presented to the emergency department on 11/13/2016 with left lower quadrant abdominal pain, dizziness, lightheadedness, shortness of breath, was found to have a supratherapeutic INR greater than 6. A CT scan of the abdomen did suggest a hematoma versus mass. He was given fresh frozen plasma, vitamin K, blood transfusion, monitor in progressive care unit (PCU). Dr. Castle was consulted, did not feel there was a necessity to an immediate colonoscopy. He did have a repeat CT abdomen and pelvis done at 48 hours which did not show any worsening of the site and Dr. Castle did feel that this does appear to be improving. At any rate, his symptoms have normalized, having hold on the Coumadin for now. He is to be discharged today. Follow up with Dr. Castle within the next week with a colonoscopy relatively soon. Hold off on the Coumadin until after his colonoscopy and then he can be started back on that within the next 1-2 weeks. PHYSICAL EXAMINATION: Temperature is 98.2, pulse 88, respiratory rate 18, blood pressure 120/55, SpO2 is 99% on room air. GENERAL: The patient is in no acute distress, is alert and oriented. HEENT: Unremarkable. LUNGS: Clear. HEART: Regular rate and rhythm. ABDOMEN: Soft, obese, nontender. Positive bowel sounds. EXTREMITIES: No edema or calf tenderness. LABORATORY DATA: White count 6.4, hemoglobin 8.7, platelets 145,000. Sodium 141, potassium 3.7, chloride 105, bicarb 28, anion gap 8, BUN 16, creatinine 0.97, glucose 118. AST 16, ALT 19, alkaline phosphatase 82, albumin 3.3. INR 1.21. DISCHARGE CONDITION: Good DISPOSITION: Discharge to home. DISCHARGE MEDICATIONS: - Coumadin is currently on hold - Tylenol 1000 mg three times a day as needed - allopurinol 300 mg at bedtime - Norvasc 5 mg daily - aspirin 81 mg daily - doxazosin 4 mg at bedtime - Lasix 40 mg three times a day - gabapentin 300 mg three times a day - metoprolol to succinate 100 mg at bedtime - Nasonex nasal spray 2 sprays per nostril daily - Pravastatin 20 mg at bedtime - spirolactone 25 mg daily - telmisartan 80 mg at bedtime DISCHARGE INSTRUCTIONS: 1. Discharge to home. 2. Activity as tolerated. 3. Follow up with Dr. Castle a week. Anticipate colonoscopy 4. Follow up with Dr. Charline Valle within the next 1-2 weeks. 5. Regular diet. 6. Should seek medical attention if symptoms worsen or progress. He voices understanding. Discharge took 35 minutes.
== END 2016-11-16 11:46 | disposition home or self-care (01) | DRG 516 ==
LOC: M ED 12:18 → M ED INP 15:11 → M PCU 11-14 15:54
PROVIDERS: ADMIT Internal Medicine; ATTEND Hospitalist
PROC: 30253N1 (ICD-10-PCS; 2016-11-13)
PROC: 30253K1 (ICD-10-PCS; 2016-11-13)
PROC: 06H03DZ Insertion of Intraluminal Device into Inferior Vena Cava, Percutaneous Approach (ICD-10-PCS; principal; 2016-11-14)
PROC: B519ZZA Fluoroscopy of Inferior Vena Cava, Guidance (ICD-10-PCS; 2016-11-14)
DX: M79.81 Nontraumatic hematoma of soft tissue (principal); Z68.42 Body mass index [BMI] 45.0-49.9, adult; D62 Acute posthemorrhagic anemia; I48.91 Unspecified atrial fibrillation; I11.0 Hypertensive heart disease with heart failure; G47.33 Obstructive sleep apnea (adult) (pediatric); E11.40 Type 2 diabetes mellitus with diabetic neuropathy, unspecified; E66.01 Morbid (severe) obesity due to excess calories; I50.9 Heart failure, unspecified; R10.32 Left lower quadrant pain; E11.65 Type 2 diabetes mellitus with hyperglycemia; E78.5 Hyperlipidemia, unspecified; M10.9 Gout, unspecified; Z79.82 Long term (current) use of aspirin; Z79.899 Other long term (current) drug therapy; Z79.01 Long term (current) use of anticoagulants

== ENCOUNTER → 2016-11-29 | Outpatient (CLI) | payer MEDICARE, OTHER ==
[~2016-11-29] VITALS: Ht 180.3 cm; Wt 148.8 kg
[~2016-11-29] MED LIST: ALLO15TA; AMLO5TAB2; AMLO5TAB2 PO; ASPI81TA21 PO; COUM10TA PO; COUMADIN PO; DOXA1TAB40 PO; DOXA1TAB41; FLUT1SPR2; FURO40TA2 PO; GABA-282; GABA-282 PO; METO-209 PO; MICA80TA; MOME50SP; NS 1,000 ML IV ONE; PRAV20TA2; PRAV20TA2 PO; PROPOFOL 200 MG/20 ML VIAL As Ordered ONE; SPIR25TA2; SPIR25TA2 PO; TELM1TAB2 PO; TOPR100T; TYLE500T78 PO; WARF-23; WARF-23 PO; ZYLO300T4 PO
--- NOTE | 2016-11-29 13:20 | ROOR ---
Patient Name: Dallas Hare Procedure Date: 11/29/2016 1:01 PM Date of : 1945 Age: 71 Room: [facility] Gender: Male Note Status: Finalized Procedure: Colonoscopy Indications: Abnormal CT of the GI tract Providers: Ryan Castle Jr, MD Referring MD: Charline Valle MD Requesting Provider: Medicines: Propofol per Anesthesia Complications: No immediate complications. Procedure: Pre-Anesthesia Assessment: - Prior to the procedure, a History and Physical was performed, and patient medications and allergies were reviewed. The patient is competent. The risks and benefits of the procedure and the sedation options and risks were discussed with the patient. All questions were answered and informed consent was obtained. Patient identification and proposed procedure were verified by the physician and the nurse in the pre-procedure area and in the procedure room. Mental Status Examination: alert and oriented. Airway Examination: normal oropharyngeal airway and neck mobility. Respiratory Examination: clear to auscultation. CV Examination: normal. ASA Grade Assessment: III - A patient with severe systemic disease. After reviewing the risks and benefits, the patient was deemed in satisfactory condition to undergo the procedure. The anesthesia plan was to use moderate sedation / analgesia (conscious sedation). Immediately prior to administration of medications, the patient was re-assessed for adequacy to receive sedatives. The heart rate, respiratory rate, oxygen saturations, blood pressure, adequacy of pulmonary ventilation, and response to care were monitored throughout the procedure. The physical status of the patient was re-assessed after the procedure. The Colonoscope was introduced through the anus and advanced to the cecum, identified by appendiceal orifice and ileocecal valve. The colonoscopy was performed without difficulty. The patient tolerated the procedure well. The quality of the bowel preparation was adequate and good. Findings: Multiple small and large-mouthed diverticula were found in the sigmoid colon. The rectum, recto-sigmoid colon, descending colon, transverse colon, ascending colon, cecum and ileocecal valve appeared normal. Impression: - Diverticulosis in the sigmoid colon. - The rectum, recto-sigmoid colon, descending colon, transverse colon, ascending colon, cecum and ileocecal valve are normal. - No specimens collected. Recommendation: - Discharge patient to home (ambulatory). - Repeat colonoscopy in 10 years for screening purposes. Ryan Castle MD Ryan Castle Jr, MD 11/29/2016 1:20:28 PM This report has been signed electronically. Number of Addenda: 0 Note Initiated On: 11/29/2016 1:01 PM Estimated Blood Loss: Estimated blood loss: none.
[2016-11-29 13:50] VITALS: BP 124/69
== END | disposition home or self-care (01) ==
LOC: M OPP 11:51
PROVIDERS: ATTEND Surgery
DX: K57.30 Diverticulosis of large intestine without perforation or abscess without bleeding (principal); I48.91 Unspecified atrial fibrillation; I10 Essential (primary) hypertension; E78.00 Pure hypercholesterolemia, unspecified; G47.33 Obstructive sleep apnea (adult) (pediatric); I50.9 Heart failure, unspecified; M10.9 Gout, unspecified; Z79.899 Other long term (current) drug therapy; Z79.82 Long term (current) use of aspirin; Z79.51 Long term (current) use of inhaled steroids

== ENCOUNTER → 2016-12-03 | Outpatient (CLI) | payer MEDICARE, OTHER ==
[~2016-12-03] MED LIST changes: -NS 1,000 ML IV ONE; -PROPOFOL 200 MG/20 ML VIAL As Ordered ONE
[2016-12-03 18:43] LABS: INR 1.08
[2016-12-03 19:47] LABS: ALBUMIN/GLOBULIN RATIO 1.21 (1.00-1.93); ALKALINE PHOSPHATASE 103 U/L (45-117); ALT/SGPT 28 U/L (12-78); ANION GAP 8 MEQ/L (8-16); AST/SGOT 15 U/L (15-37); BILIRUBIN,TOTAL 0.8 MG/DL (0.2-1.0); BLOOD UREA NITROGEN 22 MG/DL (7-18); CALCIUM LEVEL 8.6 MG/DL (8.8-10.2); CARBON DIOXIDE LEVEL 27 MEQ/L (21-32); CHLORIDE LEVEL 106 MEQ/L (98-107); CREATININE FOR GFR 0.98 MG/DL (0.70-1.30); GLOMERULAR FILTRATION RATE > 60.0 (>42); GLUCOSE, FASTING 99 MG/DL (83-110); POTASSIUM SERUM 4.3 MEQ/L (3.5-5.1); SODIUM LEVEL 141 MEQ/L (136-145); TOTAL PROTEIN 7.3 GM/DL (6.4-8.2)
[2016-12-03 20:11] LABS: BASO % 0.7 % (0.0-1.0); EOS # 0.1 K/mm3 (0.0-0.50); EOS % 2.7 % (0.0-3.0); LARGE UNSTAINED CELL # 0.1 K/mm3 (0.0-0.4); LARGE UNSTAINED CELL % 1.6 % (0.0-4.0); LYMPH # 1.4 K/mm3 (1.5-4.5); LYMPH % 26.9 % (24.0-44.0); MEAN CORPUSCULAR HEMOGLOBIN 30.8 pg (27.0-33.0); MEAN CORPUSCULAR HGB CONC 31.6 g/dl (32.0-36.5); MEAN CORPUSCULAR VOLUME 97.4 fl (80.0-96.0); MONO # 0.5 K/mm3 (0.0-0.8); MONO % 9.7 % (0.0-5.0); NEUTROPHILS # 2.9 K/mm3 (1.8-7.7); NEUTROPHILS % 58.3 % (36.0-66.0); PLATELET COUNT, AUTOMATED 223 k/mm3 (150-450); RED CELL DISTRIBUTION WIDTH 14.7 % (11.5-14.5)
== END ==
LOC: M WUC 15:00
PROVIDERS: ATTEND Family Medicine
DX: Z51.81 Encounter for therapeutic drug level monitoring (principal); Z79.01 Long term (current) use of anticoagulants; I48.1 Persistent atrial fibrillation

== ENCOUNTER → 2016-12-18 | Outpatient (CLI) | payer MEDICARE, OTHER ==
[2016-12-18 17:18] LABS: INR 2.1
== END ==
LOC: M WUC 14:08
PROVIDERS: ATTEND Family Medicine
DX: I48.2 Chronic atrial fibrillation (principal); Z79.01 Long term (current) use of anticoagulants

== ENCOUNTER → 2017-01-07 | Outpatient (CLI) | payer MEDICARE, OTHER ==
[2017-01-07 15:10] LABS: INR 3.59
== END ==
LOC: M WUC 12:07
PROVIDERS: ATTEND Family Medicine
DX: Z51.81 Encounter for therapeutic drug level monitoring (principal); Z79.01 Long term (current) use of anticoagulants

== ENCOUNTER → 2017-01-14 | Outpatient (CLI) | payer MEDICARE, OTHER ==
[2017-01-14 19:48] LABS: INR 3.29
== END ==
LOC: M WUC 16:23
PROVIDERS: ATTEND Family Medicine
DX: I48.2 Chronic atrial fibrillation (principal); Z79.01 Long term (current) use of anticoagulants

== ENCOUNTER → 2017-01-21 | Outpatient (CLI) | payer MEDICARE, OTHER ==
[~2017-01-21] MED LIST changes: +DOXA1TAB41 PO; +FLON1SPR; +KEFL500C17 PO; -METO-209 PO; +METO1TAB33 PO; +METO1TAB7 PO; +VITA500T53 PO; +WARF4TAB52 PO
[2017-01-21 18:54] LABS: INR 2.92
== END ==
LOC: M WUC 11:42
PROVIDERS: ATTEND Family Medicine
DX: Z51.81 Encounter for therapeutic drug level monitoring (principal); Z79.01 Long term (current) use of anticoagulants; I48.2 Chronic atrial fibrillation

== ENCOUNTER → 2017-01-28 | Outpatient (CLI) | payer MEDICARE, OTHER ==
[2017-01-28 19:18] LABS: INR 2.51
== END ==
LOC: M WUC 14:21
PROVIDERS: ATTEND Family Medicine
DX: Z51.81 Encounter for therapeutic drug level monitoring (principal); Z79.01 Long term (current) use of anticoagulants

== ENCOUNTER → 2017-02-04 | Outpatient (CLI) | payer MEDICARE, OTHER ==
[2017-02-04 18:14] LABS: INR 1.82
== END ==
LOC: M WUC 14:11
PROVIDERS: ATTEND Family Medicine
DX: Z51.81 Encounter for therapeutic drug level monitoring (principal); Z79.01 Long term (current) use of anticoagulants; I48.2 Chronic atrial fibrillation

== ENCOUNTER → 2017-02-18 | Outpatient (CLI) | payer MEDICARE, OTHER ==
[2017-02-18 17:13] LABS: INR 1.73
== END ==
LOC: M WUC 14:11
PROVIDERS: ATTEND Family Medicine
DX: Z51.81 Encounter for therapeutic drug level monitoring (principal); Z79.01 Long term (current) use of anticoagulants

== ENCOUNTER → 2017-03-20 | Outpatient (CLI) | payer MEDICARE, OTHER ==
[2017-03-20 16:49] LABS: INR 2.43
== END ==
LOC: M WUC 13:16
PROVIDERS: ATTEND Family Medicine
DX: Z51.81 Encounter for therapeutic drug level monitoring (principal); Z79.01 Long term (current) use of anticoagulants

== ENCOUNTER → 2017-03-26 | Outpatient (CLI) | payer MEDICARE, OTHER ==
[2017-03-26 17:06] LABS: INR 3.6
== END ==
LOC: M WUC 14:16
PROVIDERS: ATTEND Family Medicine
DX: Z51.81 Encounter for therapeutic drug level monitoring (principal); Z79.01 Long term (current) use of anticoagulants

== ENCOUNTER → 2017-04-02 | Outpatient (REF) | payer MEDICARE, OTHER ==
[2017-04-02 19:33] LABS: INR 3.59
== END ==
LOC: M LAB REF 15:20
PROVIDERS: ATTEND Family Medicine
DX: Z51.81 Encounter for therapeutic drug level monitoring (principal); Z79.01 Long term (current) use of anticoagulants; I48.2 Chronic atrial fibrillation

== ENCOUNTER → 2017-04-09 | Outpatient (CLI) | payer MEDICARE, OTHER ==
[2017-04-09 20:09] LABS: INR 2.7
== END ==
LOC: M WUC 16:13
PROVIDERS: ATTEND Family Medicine
DX: Z51.81 Encounter for therapeutic drug level monitoring (principal); Z79.01 Long term (current) use of anticoagulants; I48.2 Chronic atrial fibrillation

== ENCOUNTER → 2017-04-16 | Outpatient (CLI) | payer MEDICARE, OTHER ==
[2017-04-16 18:02] LABS: INR 2.59
== END ==
LOC: M WUC 15:14
PROVIDERS: ATTEND Family Medicine
DX: Z79.01 Long term (current) use of anticoagulants (principal)

== ENCOUNTER → 2017-04-23 | Outpatient (CLI) | payer MEDICARE, OTHER ==
[2017-04-23 17:45] LABS: INR 3.91
== END ==
LOC: M WUC 14:26
PROVIDERS: ATTEND Family Medicine
DX: Z79.01 Long term (current) use of anticoagulants (principal)

== ENCOUNTER 2017-04-30 10:07 | Inpatient (IN) | payer MEDICARE, OTHER ==
[~2017-04-30] VITALS: Ht 180.3 cm; Wt 147.7 kg
[~2017-04-30 10:07] MED LIST changes: -DOXA1TAB41 PO; -FLON1SPR; -KEFL500C17 PO; -METO1TAB7 PO; -VITA500T53 PO; -WARF4TAB52 PO
[2017-04-30 10:56] LABS: BASO % 0.4 % (0.0-1.0); EOS # 0.1 10^3/uL (0.0-0.50); EOS % 0.8 % (0.0-3.0); IMMATURE GRANULOCYTE % 0.5 % (0-0); LYMPH % 13.2 % (24.0-44.0); MEAN CORPUSCULAR HEMOGLOBIN 32.7 pg (27.0-33.0); MEAN CORPUSCULAR HGB CONC 33.2 g/dl (32.0-36.5); MEAN CORPUSCULAR VOLUME 98.3 fl (80.0-96.0); MONO # 0.9 10^3/uL (0.0-0.8); MONO % 11.6 % (0.0-5.0); NEUTROPHILS # 5.6 10^3/uL (1.8-7.7); NEUTROPHILS % 73.5 % (36.0-66.0); PLATELET COUNT, AUTOMATED 145 10^3/uL (150-450); RED CELL DISTRIBUTION WIDTH 13.8 % (11.5-14.5); WHITE BLOOD COUNT 7.6 10^3/uL (4.0-10.0)
[2017-04-30 11:08] LABS: INR 2.42
[2017-04-30 11:16] LABS: ALBUMIN 3.5 GM/DL (3.2-5.2); ALKALINE PHOSPHATASE 86 U/L (45-117); ALT/SGPT 27 U/L (12-78); ANION GAP 7 MEQ/L (8-16); AST/SGOT 13 U/L (15-37); BILIRUBIN,DIRECT 0.3 MG/DL (0.0-0.2); BLOOD UREA NITROGEN 31 MG/DL (7-18); CALCIUM LEVEL 8.4 MG/DL (8.8-10.2); CARBON DIOXIDE LEVEL 25 MEQ/L (21-32); CHLORIDE LEVEL 106 MEQ/L (98-107); CREATININE FOR GFR 1.17 MG/DL (0.70-1.30); GLOMERULAR FILTRATION RATE > 60.0 (>42); GLUCOSE, FASTING 133 MG/DL (83-110); POTASSIUM SERUM 4.1 MEQ/L (3.5-5.1); SODIUM LEVEL 138 MEQ/L (136-145)
[2017-04-30] MEDS ORDERED: ISOVUE-370 76% 100ML VIAL (Q9967) As Ordered ONE (12:03)
[2017-04-30] MEDS ORDERED: FUROSEMIDE 40 MG/4 ML VIAL (J1940) IV ONE (13:45)
[2017-04-30] MEDS ORDERED: FLON1SPR (14:46)
[2017-04-30] MEDS ORDERED: DOXA1TAB41 PO (14:46)
--- NOTE | 2017-04-30 15:20 | REP ---
CT ABDOMEN AND PELVIS WITH IV BUT WITHOUT ORAL CONTRAST: HISTORY: History of spontaneous intra-abdominal hematoma. Anemia. CT CONTRAST DOSE: 100 mL of intravenous Isovue-370. COMPARISON CT STUDY: November 15, 2016 CT FINDINGS: Digital preliminary integrated logistics programs director radiograph demonstrates an unremarkable bowel gas pattern. There is evidence of mild diffuse fatty infiltration of the liver. A low-density 1 cm hepatic lesion is seen consistent with a cyst. This is unchanged. There is a 1.4 cm stable left adrenal nodule. No right adrenal nodule is seen. No pancreatic abnormality is observed. Gallbladder is unremarkable. There is a vena cava filter noted in place. The kidneys enhance symmetrically and are morphologically intact. No retroperitoneal mass or hematoma is seen. Prostate is enlarged and contains dystrophic calcifications. Urinary bladder is unremarkable. There is left colonic diverticulosis without CT evidence of diverticulitis. Small and large bowel loops are otherwise unremarkable. There is no evidence of free air or other abnormal fluid collection. Bone window settings show a subcortical cyst in the left femoral head and bilateral hip joint osteoarthritis. There is bilateral L5 spondylolysis with 1 mm grade 1 L5-S1 spondylolisthesis. IMPRESSION: No acute intra-abdominal abnormality. IVC filter in place. Left colonic diverticulosis. No CT evidence of diverticulitis. No evidence of ascites. Stable 1.4 cm left adrenal nodule, unchanged from the November 15, 2016 study. Signed by Luke Diez MD 04/30/2017 05:29 P
--- NOTE | 2017-04-30 15:20 | REP ---
CT pulmonary angiogram: With IV contrast. History: Shortness of breath. Dizziness. Question pulmonary embolus. Comparison studies: November 13, 2016. Contrast dose: 100 cc's of Isovue [address] technique: Helical scanning is acquired and overlapping 1.5 mm and contiguous 3 mm axial images are reformatted. In addition, a 3-D work station is deployed to generate thick slab maximum intensity projection images in sagittal and coronal imaging projections. CT pulmonary angiographic findings: There is good opacification of the pulmonary arterial tree. There is no CT evidence of pulmonary embolism. Maximal intensity projection images show no vessel cutoff or filling defect. The thoracic aorta enhances homogeneously and is normal in course and caliber. Scattered normal-sized mediastinal lymph nodes are seen. No pericardial effusion is seen. There is a small quantity of minimal bilateral pleural fluid. Cardiac enlargement is seen. No upper abdominal ascites is noted. There is a small stable nodule in the left adrenal gland measuring 1.4 cm in greatest diameter. A 1 cm low density area is seen in the right lobe of the liver consistent with a cyst. This is unchanged as well. Left coronary artery vascular calcification is seen. There is bilateral mild gynecomastia. There is a benign intramuscular lipoma 2.2 cm just dorsal to the scapular body on the right side unchanged. Lung parenchymal windows demonstrate some ground-glass alveolar opacity in the perihilar regions consistent with alveolar edema. This is a new finding. Impression: 1. No CT evidence of pulmonary embolus. 2. Cardiomegaly with tiny bilateral pleural effusions. Mild perihilar alveolar edema pattern, CHF. Left coronary artery vascular calcification. 3. Bilateral mild gynecomastia. 4. Stable 1.4 cm left adrenal nodule. Signed by Luke Diez MD 04/30/2017 05:29 P
[2017-04-30] MEDS ORDERED: FLUTICASONE PROP 0.05% NASAL SPRAY 16 GM (FLONASE) PRN (16:15)
--- NOTE | 2017-04-30 16:34 | HPEPDOC ---
General Date of Admission 04/30/2017 Primary Care Physician: Charline Valle Other Providers Armored Service Technician: Dr. Benitez Attending Physician: SCOTT CHAN MD Chief Complaint The patient is a 72-year-old male admitted with a reason for visit of Sob/Dizzy. Source: Patient, Family Exam Limitations: No limitations History of Present Illness Mr. Hare is a 72 y/o male with hx of a fib on Coumadin, HTN, and CHF presenting for Dyspnea with exertion and weakness. Pt notes that at baseline he is able to do work around the house, go up and down stairs without stopping and is able to exert himself without major difficulty. He reports that over the past week and a half, he has been experiencing increased SOB with exertion that has been gradually worsening. He notes that he initially thought he had overexerted himself and tried resting, however, this did not help his sxs. He states the sxs have been gradually worsening since onset and this AM he was very short of breath after just taking a couple of steps and this prompted him to come to the ED. Pt notes he has experiencing some dizziness when feeling short of breath, however, denies feeling lightheaded or presyncopal at any point. Notes that he felt extremely fatigued and SOB here in the ED when they walked him down the [place]inguez. States he was not able to walk back and had to request a wheelchair to get back to his room. Pt denies any LE edema, CP, cough , fever, chills, or nighttime sxs. In the ED, patient received one dose of Furosemide 40mg IV as well as CT A/P and CT angio completed. Home Medications Scheduled Allopurinol (Zyloprim) 300 Mg Tab, 300 MG PO QHS, (Reported) Amlodipine Besylate (Amlodipine Besylate) 5 Mg Tab, 2.5 MG PO QHS, (Reported) Aspirin (Aspir-Low) 81 Mg Tab, 81 MG PO QHS, (Reported) Doxazosin Mesylate (Doxazosin Mesylate) 2 Mg Tab, 4 MG PO QHS, (Reported) Furosemide (Furosemide) 40 Mg Tab, 40 MG PO QID, (Reported) Gabapentin (Gabapentin) 300 Mg Cap, 300 MG PO TID, (Reported) Metoprolol Succinate (Metoprolol Succinate ER) 100 Mg Tab, 100 MG PO QHS, ( Reported) Pravastatin Sodium (Pravastatin Sodium) 20 Mg Tab, 20 MG PO QHS, (Reported) Spironolactone (Spironolactone) 25 Mg Tab, 25 MG PO DAILY, (Reported) Telmisartan (Telmisartan) 80 Mg Tab, 80 MG PO QHS, (Reported) Warfarin Sod (Coumadin) 10 Mg Tab, 10 MG PO QHS, (Reported) Scheduled PRN (Flonase Allergy Relief) 50 Mcg/Act Spr, 2 SPRAYS NA QHS PRN for NASAL CONGESTION, (Reported) Acetaminophen (Tylenol Extra Strength) 500 Mg Tab, 1,000 MG PO TID PRN for PAIN, (Reported) Allergies Coded Allergies: No Known Allergies (Unverified , 11/23/16) Past Medical History Medical History 1. Atrial fibrillation anticoagulated on Coumadin 2. HTN 3. SUSAN on CPAP 4. Neuropathy 5. DLP 6. Gout 7. possible CHF-no echo on records 8. Hyperlipidemia Surgical History NONE Family History Brothers hx of [place] and valvular disease. Father-[place] at 70. Mother non contributory. Social History * Smoker: former Smoker (Patient quit smoking in 1978 and smoked >30 years at 3ppd. Social alcohol use and denies illicit drug use. Patient lives with his . ) Recent Travel/Sick Contacts: Denies: Recent travel, Recent sick contacts Review of Symptoms Constitutional: Reports: Malaise, Fatigue, Denies: Chills, Fever, Night Sweats, Weakness, Weight Loss Eyes: Denies: Pain, Vision change ENT: Denies: Head Aches, Ear Pain Skin: Denies: Rash Pulmonary: Reports: Dyspnea, Denies: Cough, Pleuritic Chest Pain Cardiovascular: Reports: Orthopnea, Other Symptoms (dizziness when feeling SOB) , Denies: Chest Pain, Palpitations, Paroxysmal Noc. Dyspnea, Edema Gastrointestinal: Denies: Nausea, Vomiting, Abdominal Pain, Diarrhea, Constipation, Melena, Hematochezia Genitourinary: Denies: Dysuria, Frequency, Hematuria Hematologic: Denies: Bruising, Bleeding Excessively Musculoskeletal: Denies: Back Pain Psych: Reports: Mood Normal Physical Examination General Exam: Positive: Alert, Cooperative, No Acute Distress, Other (resting in bed comfortably. Not short of breath during exam) Eye Exam: Positive: PERRLA, Conjunctiva & lids normal, EOMI ENT Exam: Positive: Atraumatic, Mucous membr. moist/pink, Pharynx Normal Neck Exam: Positive: Supple, Negative: JVD, thyromegaly Chest Exam: Positive: Clear to auscultation, Diminished (diffusely), Negative: Rales, Rhonchi, Wheezing Heart Exam: Positive: Rate Normal, Normal S1, Normal S2, Negative: Gallops, Murmurs, Rubs Telemetry: Positive: No significant arrhythmia Abdomen Exam: Positive: Normal bowel sounds, Soft, Negative: Tenderness, Hepatospenomegaly Extremity Exam: Positive: Normal pulses, Negative: Edema Skin Exam: Positive: Nl turgor and temperature Neuro Exam: Positive: Normal Speech, Cranial Nerves 3-12 NL Psych Exam: Positive: Mental status NL Vital Signs Vital Signs Date Time Temp Pulse Resp B/P (MAP) Pulse Ox O2 Delivery O2 Flow Rate FiO2 04/30/17 14:06 52 119/65 (83) 93 04/30/17 13:42 Room Air 04/30/17 10:08 96.9 16 Laboratory Data Labs 24H Laboratory Tests 2 04/30/17 10:41: Immature Granulocyte % (Auto) 0.5H, White Blood Count 7.6, Red Blood Count 3.00L , Hemoglobin 9.8L, Hematocrit 29.5L, Mean Corpuscular Volume 98.3H, Mean Corpuscular Hemoglobin 32.7, Mean Corpuscular Hemoglobin Concent 33.2, Red Cell Distribution Width 13.8, Platelet Count 145L, Neutrophils (%) (Auto) 73.5H, Lymphocytes (%) (Auto) 13.2L, Monocytes (%) (Auto) 11.6H, Eosinophils (%) (Auto ) 0.8, Basophils (%) (Auto) 0.4, Neutrophils # (Auto) 5.6, Lymphocytes # (Auto) 1.0L, Monocytes # (Auto) 0.9H, Eosinophils # (Auto) 0.1, Basophils # (Auto) 0.0 , Immature Granulocyte # (Auto) 0.0, Nucleated Red Blood Cells % (auto) 0.0, Prothrombin Time 27.3H, Prothromb Time International Ratio 2.42, Activated Partial Thromboplast Time 48.4H, Anion Gap 7L, Glomerular Filtration Rate > 60.0 , Calcium Level 8.4L, Aspartate Amino Transf (AST/SGOT) 13L, Alanine Aminotransferase (ALT/SGPT) 27, Alkaline Phosphatase 86, Total Bilirubin 1.0, Direct Bilirubin 0.3H, Total Creatine Kinase 83, Creatine Kinase MB 1.0, Creatine Kinase MB Relative Index 1.20, Troponin I < 0.02, CV-Mjm-I-Type Natriuretic Peptide 903H, Total Protein 7.0, Albumin 3.5, Albumin/Globulin Ratio 1.00 CBC/BMP Laboratory Tests 04/30/17 10:41 Red Blood Count 3.00 L, Mean Corpuscular Volume 98.3 H, Mean Corpuscular Hemoglobin 32.7, Mean Corpuscular Hemoglobin Concent 33.2, Red Cell Distribution Width 13.8, Neutrophils (%) (Auto) 73.5 H, Lymphocytes (%) (Auto) 13.2 L, Monocytes (%) (Auto) 11.6 H, Eosinophils (%) (Auto) 0.8, Basophils (%) ( Auto) 0.4, Neutrophils # (Auto) 5.6, Lymphocytes # (Auto) 1.0 L, Monocytes # ( Auto) 0.9 H, Eosinophils # (Auto) 0.1, Basophils # (Auto) 0.0 Problems (1) Anemia Status: Acute Problem Text: Patient with hx of intraabdominal bleeding while on Coumadin on 10/2016 requiring transfusion of 4 units. Now presenting with anemia. Current Hgb at 9.8, appears as though patient's last hemoglobin was 12.3 in November, no true baseline established. Pt with no evidence of acute blood loss and negative stool for occult blood in the ED. Plan for transfusion of one unit of blood with post transfusion CBC and reassessment. Will also add a reticulocyte count to his ED CBC to evaluate for adequate bone marrow response to anemia. (2) CHF (congestive heart failure) Status: Acute Problem Text: Patient with elevated BNP and presenting with BIANCHI and normally on Lasix and Spironolactone at home. We will continue patient's home regimen with holding parameters for systolic BP <110. Patient with hx of possible CHF noted in 10/2016, however, no echo results available. Plan for echo this admission to evaluate patient's heart function. (3) Bradycardia Status: Acute Problem Text: Patient with HR's ranging from mid 40's to 60. Patient on Metoprolol succinate 100mg at home. Plan to change patient's Metoprolol succinate to Metoprolol tartrate 12.5mg q6 with holding parameters for HR <60 as patient could have symptomatic bradycardia contributing to his sxs. Patient will be admitted to PCU and be monitored on tele. (4) Exertional dyspnea Status: Acute Problem Text: Patient with reports of exertional dyspnea, likely multifactorial with evidence of fluid overload with elevated BNP and anemia. Patient currently being diuresed. Patient also noted to be bradycardic per EKG, this could also be contributing to patient's sxs. Plan to adjust patient's home meds as noted above. (5) Atrial fibrillation Status: Chronic Problem Text: Patient is anticoagulated with Coumadin. INR in therapeutic range. will continue current dose. Patient noted to be in sinus bradycardia in the ED. (6) HTN (hypertension) Status: Chronic Problem Text: Patient on multiple HTN meds. Plan to hold patient's Amlodipine at this time, and continue patient's home Telmisartan with holding parameters for SBP <110. (7) Gout Status: Chronic Response to Treatment: Stable Problem Text: Continue Allopurinol. (8) Neuropathy Status: Chronic Problem Text: Continue patient's Gabapentin. (9) Hyperlipidemia Status: Chronic Problem Text: Continue patient's statin. Plan / VTE VTE Prophylaxis Ordered?: Yes (Warfarin) GME ATTESTATION GME ATTESTATION My preceptor for this patient encounter was physically present in the building during the encounter and was fully available. As needed, all aspects of the patient interview, examination, medical decision making process, and medical care plan development were reviewed and approved by the preceptor. Preceptor is aware and concurs with the plan as stated in the body of this note and will attest to such by his/her cosignature. ATTENDING NOTE I, Scott Chan, have both independently examined this patient as well as reviewed the documentation. I have discussed in detail with the resident the findings and plan of treatment as documented in the residents documentation. I will continue to follow the patient and offer further guidance to the patients care as necessary during this hospital stay. KESHAWN BROWN DO Apr 30, 2017 14:53 SCOTT CHAN MD May 01, 2017 12:04
[2017-04-30 17:06] LABS: RETIC HEMOGLOBIN EQUIVALENT 35.4 pg (24-36); RETICULOCYTE % 1.7 % (0.5-1.5)
[2017-04-30 17:43] LABS: FERRITIN 371 NG/ML (26-388); PERCENT SATURATION 8.8 % (19.7-50.0); TOTAL IRON BINDING CAPACITY 285 UG/DL (250-450)
[2017-04-30] MEDS ORDERED: diphenhydrAMINE 25 MG CAP PO ONE (17:45)
[2017-04-30] MEDS ORDERED: ACETAMINOPHEN 325 MG TAB PO ONE (17:45)
[2017-04-30 17:51] LABS: VITAMIN B12 LEVEL 213 PG/ML (247-911)
[2017-04-30 18:00] VITALS: BP 140/69
[2017-04-30 18:00] LABS: FOLATE 9.6 NG/ML (>5.4)
[2017-04-30] MEDS: METOPROLOL TART 12.5 MG PER 1/2 TAB PO SCH (18:00)
[2017-04-30] MEDS: GABAPENTIN 300 MG CAP PO SCH ×2 (18:06→21:13)
[2017-04-30] MEDS: WARFARIN SOD 5 MG TAB PO SCH (18:06)
[2017-04-30] MEDS: FUROSEMIDE 40 MG TAB PO SCH ×2 (18:16→21:13)
[2017-04-30 18:25] VITALS: BP 136/64
[2017-04-30 18:40] VITALS: BP 152/70
[2017-04-30 19:10] VITALS: BP 121/56
[2017-04-30 19:40] VITALS: BP 139/58
--- NOTE | 2017-04-30 20:34 | ECGEPIP ---
Stationary ECG Study [facility] - ED Test Date: 2017-04-30 Pat Name: SEA CARLSON Department: Room: - Gender: [facility] Information Specialist: katja : 1945 Requested By: Ji Goel Order Number: [id number] Reading MD: Erica Garza Measurements Intervals [place] Rate: 57 P: 93 FL: 280 QRS: 14 QRSD: 101 T: -9 QT: 427 QTc: 417 Interpretive Statements SINUS BRADYCARDIA WITH FIRST DEGREE AV BLOCK NSTTW ABNORMALITY PRIOR ATRIAL FLUTTER 11/13/16 Electronically Signed On 04-30-2017 20:34:31 EDT by Erica Garza
[2017-04-30 20:40] VITALS: BP 153/78
[2017-04-30] MEDS ORDERED: SLF 3 ML SYR IV PRN (21:00)
[2017-04-30] MEDS: ASPIRIN 81 MG ENTERIC TAB PO SCH (21:12)
[2017-04-30] MEDS: DOXAZOSIN MESYLATE 1 MG TAB PO SCH (21:12)
[2017-04-30] MEDS: PRAVASTATIN 20 MG TAB PO SCH (21:13)
[2017-04-30] MEDS: TELMISARTAN 20 MG TAB PO SCH (21:13)
[2017-04-30] MEDS: ALLOPURINOL 300 MG TAB PO SCH (21:13)
[2017-04-30] MEDS: SLF 3 ML SYR IV SCH (21:14)
[2017-05-01] VITALS (10 sets, daily range): BP systolic 108–141; BP diastolic 53–65
[2017-05-01] MEDS: ACETAMINOPHEN 500 MG TAB PO PRN ×2 (00:57→12:57)
[2017-05-01] MEDS: METOPROLOL TART 12.5 MG PER 1/2 TAB PO SCH ×4 (00:57→17:17)
[2017-05-01] MEDS: SLF 3 ML SYR IV SCH ×3 (05:38→20:12)
[2017-05-01 06:23] LABS: MEAN CORPUSCULAR HEMOGLOBIN 31.7 pg (27.0-33.0); MEAN CORPUSCULAR HGB CONC 32.9 g/dl (32.0-36.5); MEAN CORPUSCULAR VOLUME 96.5 fl (80.0-96.0); RED CELL DISTRIBUTION WIDTH 14.6 % (11.5-14.5); WHITE BLOOD COUNT 6.9 10^3/uL (4.0-10.0)
[2017-05-01 06:30] LABS: ANION GAP 7 MEQ/L (8-16); BLOOD UREA NITROGEN 30 MG/DL (7-18); CALCIUM LEVEL 8.5 MG/DL (8.8-10.2); CARBON DIOXIDE LEVEL 26 MEQ/L (21-32); CHLORIDE LEVEL 105 MEQ/L (98-107); CREATININE FOR GFR 1.19 MG/DL (0.70-1.30); GLOMERULAR FILTRATION RATE > 60.0 (>42); GLUCOSE, FASTING 133 MG/DL (83-110); SODIUM LEVEL 138 MEQ/L (136-145)
[2017-05-01 09:04] LABS: MAGNESIUM LEVEL 2.4 MG/DL (1.8-2.4)
[2017-05-01] MEDS ORDERED: CYANOCOBALAMIN 500 MCG TAB PO ONE (09:15)
[2017-05-01] MEDS: GABAPENTIN 300 MG CAP PO SCH ×3 (09:16→20:12)
[2017-05-01] MEDS: SPIRONOLACTONE 25 MG TAB PO SCH (09:16)
[2017-05-01] MEDS: FUROSEMIDE 40 MG TAB PO SCH ×4 (09:16→20:12)
[2017-05-01 10:34] LABS: FREE T4 0.87 NG/DL (0.76-1.46)
[2017-05-01] MEDS: WARFARIN SOD 5 MG TAB PO SCH (17:18)
--- NOTE | 2017-05-01 19:39 | IPNPDOC ---
Subjective Date Seen The patient was seen on 05/01/17. Subjective Chief Complaint/HPI The patient is a 72-year-old male admitted with a reason for visit of Bradycardia Sob Symptomatic Anemia. Events since last encounter Patient reports that he is feeling slightly more SOB since yesterday but that his weakness has improved. He reports that he had significant urine output after receiving the dose of Lasix in the ED yesterday and this did not seem to help his sxs. He does note feeling improved after the blood transfusion. states that he has been up to walk to the bathroom throughout the night and noted improvement in his BIANCHI. He reports that last night he developed some chills and was noted to have a fever. He reports he only had mild chills and no other sxs associated with the fever. He states that this AM he is feeling slightly more SOB at rest, but that otherwise is not experiencing any CP, fever, chills or cough. General: Reports: Chills, Normal Appetite, Denies: Night Sweats, Fatigue Constitutional: Reports: Chills, Fever, Weakness (improving), Fatigue ( improving) Eyes: Denies: Pain, Vision change ENT: Denies: Head Aches Skin: Denies: Rash Pulmonary: Reports: Dyspnea, Denies: Cough, Pleuritic Chest Pain Cardiovascular: Reports: Orthopnea, Denies: Chest Pain, Palpitations, Paroxysmal Noc. Dyspnea, Edema, Lt Headedness Gastrointestinal: Denies: Nausea, Vomiting, Abdominal Pain, Diarrhea, Constipation Genitourinary: Denies: Dysuria Musculoskeletal: Denies: Back Pain Psych: Reports: Mood Normal Objective Physical Examination General Exam: Positive: Alert, Cooperative, No Acute Distress, Other (resting in bed comfortably. slightly short of breath during interview when speaking in full sentences) Eye Exam: Positive: PERRLA, Conjunctiva & lids normal, EOMI ENT Exam: Positive: Atraumatic, Mucous membr. moist/pink, Pharynx Normal Neck Exam: Positive: Supple, Negative: JVD, thyromegaly Chest Exam: Positive: Clear to auscultation, Diminished (diffusely), Negative: Rales, Rhonchi, Wheezing Heart Exam: Positive: Rate Normal, Normal S1, Normal S2, Negative: Gallops, Murmurs, Rubs Telemetry: Positive: No significant arrhythmia Abdomen Exam: Positive: Normal bowel sounds, Soft, Negative: Tenderness, Hepatospenomegaly Extremity Exam: Positive: Normal pulses, Negative: Edema Skin Exam: Positive: Nl turgor and temperature Neuro Exam: Positive: Normal Speech, Cranial Nerves 3-12 NL Psych Exam: Positive: Mental status NL Assessment /Plan Problems (1) Anemia Status: Acute Problem Text: Patient s/p transfusion of one unit with only slight increase in Hgb. Patient notes improvement of his sxs after transfusion. patient had negative stool for occult blood. Patient's reticulocyte index calculated to be 0.8 which indicates inadequate bone marrow response to anemia. Patient's anemia is macrocytic. Vitamin B12 noted to be low, will replete. Will check formal FOBT. Hgb appears to be at his baseline for the past 6 months. (2) CHF (congestive heart failure) Status: Acute Problem Text: Patient noted no significant improvement of respiratory sxs following diuresis. Total negative balance of 940mL since arrival to the ED. Patient normally on Lasix and Spironolactone at home. We will continue patient' s home regimen with holding parameters for systolic BP <110. Echo still pending. (3) Fever Status: Acute Problem Text: Patient with one episode of fever last night after transfusion, highest 101.9. Received dose of Tylenol which helped bring temp down. Will continue to monitor and follow up patient's blood and urine cultures. Clinically well appearing. (4) Bradycardia Status: Acute Problem Text: Patient with HR's initially ranging from mid 40's to 60. Patient on Metoprolol succinate 100mg at home. patient's Metoprolol changed to Metoprolol tartrate with hold parameters, and multiple doses have been held, HR now in the 60s and 70s. We will readjust his metoprolol succinate dosing upon discharge. (5) Exertional dyspnea Status: Acute Problem Text: Patient with reports of exertional dyspnea, likely multifactorial. Patient reports some improvement of sxs after transfusion. Will continue to monitor. (6) Atrial fibrillation Status: Chronic Problem Text: Patient is anticoagulated with Coumadin. INR in therapeutic range. will continue current dose. Continue beta charlene and monitor rate control. (7) HTN (hypertension) Status: Chronic Problem Text: Continue holding patient's Amlodipine at this time, and continue patient's home Telmisartan with holding parameters for SBP <110. (8) Gout Status: Chronic Response to Treatment: Stable Problem Text: Continue Allopurinol. (9) Neuropathy Status: Chronic Problem Text: Continue patient's Gabapentin. (10) Hyperlipidemia Status: Chronic Problem Text: Continue patient's statin. Plan/VTE VTE Prophylaxis Ordered?: Yes (Warfarin) VS, I&O, 24H, Fishbone Vital Signs/I&O Vital Signs Date Time Temp Pulse Resp B/P (MAP) Pulse Ox O2 Delivery O2 Flow Rate FiO2 05/01/17 09:17 122/62 (82) 05/01/17 05:42 94 NIPPV (BIPAP/CPAP) 3.0 05/01/17 05:36 56 05/01/17 05:05 99.4 22 Laboratory Data 24H LABS Laboratory Tests 2 04/30/17 10:41: Immature Granulocyte % (Auto) 0.5H, White Blood Count 7.6, Red Blood Count 3.00L , Hemoglobin 9.8L, Hematocrit 29.5L, Mean Corpuscular Volume 98.3H, Mean Corpuscular Hemoglobin 32.7, Mean Corpuscular Hemoglobin Concent 33.2, Red Cell Distribution Width 13.8, Platelet Count 145L, Neutrophils (%) (Auto) 73.5H, Lymphocytes (%) (Auto) 13.2L, Monocytes (%) (Auto) 11.6H, Eosinophils (%) (Auto ) 0.8, Basophils (%) (Auto) 0.4, Neutrophils # (Auto) 5.6, Lymphocytes # (Auto) 1.0L, Monocytes # (Auto) 0.9H, Eosinophils # (Auto) 0.1, Basophils # (Auto) 0.0 , Immature Granulocyte # (Auto) 0.0, Reticulocyte # (auto) 51.900, Nucleated Red Blood Cells % (auto) 0.0, Percent Reticulocyte Count 1.7H, Reticulocyte Hemoglobin Equivalent 35.4, Prothrombin Time 27.3H, Prothromb Time International Ratio 2.42, Activated Partial Thromboplast Time 48.4H, Anion Gap 7L, Glomerular Filtration Rate > 60.0, Calcium Level 8.4L, Iron Level 25L, Total Iron Binding Capacity 285, Transferrin % Saturation 8.8L, Ferritin 371, Aspartate Amino Transf (AST/SGOT) 13L, Alanine Aminotransferase (ALT/SGPT) 27, Alkaline Phosphatase 86, Total Bilirubin 1.0, Direct Bilirubin 0.3H, Total Creatine Kinase 83, Creatine Kinase MB 1.0, Creatine Kinase MB Relative Index 1.20, Troponin I < 0.02, GZ-Int-D-Type Natriuretic Peptide 903H, Total Protein 7.0, Albumin 3.5, Albumin/Globulin Ratio 1.00, Vitamin B12 Level 213L, Folate 9.6 05/01/17 06:04: Anion Gap 7L, Glomerular Filtration Rate > 60.0, Calcium Level 8.5L, Blood Urea Nitrogen 30H, Creatinine 1.19, Sodium Level 138, Potassium Level 4.0, Chloride Level 105, Carbon Dioxide Level 26, Magnesium Level 2.4 05/01/17 08:54: Urine Appearance CLEAR, Urine Color YELLOW, Urine pH 5.0, Urine Specific [place] 1.020, Urine Protein NEGATIVE, Urine Glucose (UA) NEGATIVE, Urine Ketones NEGATIVE, Urine Urobilinogen 0.2, Urine Bilirubin NEGATIVE, Urine Leukocyte Esterase NEGATIVE, Urine Blood NEGATIVE, Urine Nitrite NEGATIVE, Urine WBC (Auto) 0, Urine RBC (Auto) 2, Urine Hyaline Casts (Auto) 1, Urine Bacteria (Auto) NEGATIVE, Urine Squamous Epithelial Cells 0, Urine Mucus (Auto) SMALL, Urine Sperm (Auto) CBC/BMP Laboratory Tests 04/30/17 10:41 Red Blood Count 3.00 L, Mean Corpuscular Volume 98.3 H, Mean Corpuscular Hemoglobin 32.7, Mean Corpuscular Hemoglobin Concent 33.2, Red Cell Distribution Width 13.8, Neutrophils (%) (Auto) 73.5 H, Lymphocytes (%) (Auto) 13.2 L, Monocytes (%) (Auto) 11.6 H, Eosinophils (%) (Auto) 0.8, Basophils (%) ( Auto) 0.4, Neutrophils # (Auto) 5.6, Lymphocytes # (Auto) 1.0 L, Monocytes # ( Auto) 0.9 H, Eosinophils # (Auto) 0.1, Basophils # (Auto) 0.0 04/30/17 20:16 05/01/17 06:04 Red Blood Count 3.12 L, Mean Corpuscular Volume 96.5 H, Mean Corpuscular Hemoglobin 31.7, Mean Corpuscular Hemoglobin Concent 32.9, Red Cell Distribution Width 14.6 H, Calcium Level 8.5 L Microbiology Microbiology 05/01/17 Blood Culture, Received Pending 05/01/17 Blood Culture, Received Pending 05/01/17 Urine Culture, Received Pending Attending Note Attending Note I have seen and examined the above patient and agree with the above documentation. KESHAWN BROWN DO May 01, 2017 09:39 GLEN TRUJILLO May 02, 2017 18:28
[2017-05-01] MEDS: DOXAZOSIN MESYLATE 1 MG TAB PO SCH (20:11)
[2017-05-01] MEDS: TELMISARTAN 20 MG TAB PO SCH (20:11)
[2017-05-01] MEDS: ALLOPURINOL 300 MG TAB PO SCH (20:11)
[2017-05-01] MEDS: PRAVASTATIN 20 MG TAB PO SCH (20:12)
[2017-05-01] MEDS: ASPIRIN 81 MG ENTERIC TAB PO SCH (20:12)
[2017-05-02] MEDS: METOPROLOL TART 12.5 MG PER 1/2 TAB PO SCH ×3 (00:16→12:09)
[2017-05-02 04:00] VITALS: BP 142/65
[2017-05-02 05:43] LABS: MEAN CORPUSCULAR VOLUME 96.9 fl (80.0-96.0); RED CELL DISTRIBUTION WIDTH 14.5 % (11.5-14.5); WHITE BLOOD COUNT 6.8 10^3/uL (4.0-10.0)
[2017-05-02 05:55] LABS: INR 1.91
[2017-05-02 06:00] LABS: ANION GAP 7 MEQ/L (8-16); BLOOD UREA NITROGEN 27 MG/DL (7-18); CALCIUM LEVEL 8.3 MG/DL (8.8-10.2); CARBON DIOXIDE LEVEL 27 MEQ/L (21-32); CHLORIDE LEVEL 105 MEQ/L (98-107); CREATININE FOR GFR 1.22 MG/DL (0.70-1.30); GLOMERULAR FILTRATION RATE > 60.0 (>42); GLUCOSE, FASTING 140 MG/DL (83-110); MAGNESIUM LEVEL 2.2 MG/DL (1.8-2.4); SODIUM LEVEL 139 MEQ/L (136-145)
[2017-05-02] MEDS: SLF 3 ML SYR IV SCH ×3 (06:00→20:11)
[2017-05-02] MEDS: CYANOCOBALAMIN 500 MCG TAB PO SCH (06:17)
[2017-05-02 07:50] VITALS: BP 132/60
[2017-05-02] MEDS: GABAPENTIN 300 MG CAP PO SCH ×3 (08:41→20:11)
[2017-05-02] MEDS: SPIRONOLACTONE 25 MG TAB PO SCH (08:41)
[2017-05-02] MEDS: FUROSEMIDE 40 MG TAB PO SCH ×4 (08:41→20:11)
[2017-05-02 11:45] VITALS: BP 162/82
[2017-05-02 15:30] VITALS: BP 141/73
[2017-05-02] MEDS: WARFARIN SOD 5 MG TAB PO SCH (16:21)
[2017-05-02] MEDS ORDERED: WARFARIN SOD 3 MG TAB PO ONE (17:00)
--- NOTE | 2017-05-02 17:37 | IPNPDOC ---
Subjective Date Seen The patient was seen on 05/02/17. Subjective Chief Complaint/HPI The patient is a 72-year-old male admitted with a reason for visit of Bradycardia Sob Symptomatic Anemia. Events since last encounter Patient notes feeling significantly improved. At the time of assessment patient had just finished working with PT. notes that he was able to go up 6 steps, walk up and down the dominguez, and did not feel short of breath. He states that when he first returned to his room his O2 sat was lower in the 80's but that it went back up to the 90's shortly after. He states that he is not feeling as short of breath with exertion as when he came to the ED. Pt also notes that last night he had an episode of chest tightness "like a tight shirt around my chest, not pain", after going to the bathroom, but that this also resolved by itself within a couple of minutes. He denies currently experiencing any CP, Palpitations, SOB or cough. General: Denies: Chills, Night Sweats, Fatigue Constitutional: Denies: Chills, Fever, Malaise, Night Sweats, Weakness ENT: Denies: Head Aches Skin: Denies: Rash Pulmonary: Reports: Dyspnea, Denies: Cough, Pleuritic Chest Pain Cardiovascular: Reports: Other Symptoms (chest tightness), Denies: Chest Pain, Palpitations, Orthopnea, Edema, Lt Headedness Gastrointestinal: Denies: Nausea, Vomiting, Abdominal Pain, Diarrhea, Constipation Genitourinary: Denies: Dysuria, Frequency Musculoskeletal: Denies: Neck Pain, Back Pain Neurological: Denies: Weakness, Numbness Psych: Reports: Mood Normal Objective Physical Examination General Exam: Positive: Alert, Cooperative, No Acute Distress, Other (sitting up in bed, able to speak in full sentencess, no distress or shortness of breath apparent during interview, on room air. ) Eye Exam: Positive: PERRLA, Conjunctiva & lids normal, EOMI ENT Exam: Positive: Atraumatic, Mucous membr. moist/pink, Pharynx Normal Neck Exam: Positive: Supple, Negative: JVD, thyromegaly Chest Exam: Positive: Clear to auscultation, Normal air movement, Negative: Rales, Rhonchi, Wheezing Heart Exam: Positive: Rate Normal, Normal S1, Normal S2, Negative: Gallops, Murmurs, Rubs Telemetry: Positive: No significant arrhythmia Abdomen Exam: Positive: Normal bowel sounds, Soft, Negative: Tenderness, Hepatospenomegaly Extremity Exam: Positive: Normal pulses, Negative: Edema Skin Exam: Positive: Nl turgor and temperature Neuro Exam: Positive: Normal Speech, Cranial Nerves 3-12 NL Psych Exam: Positive: Mental status NL Assessment /Plan Problems (1) Anemia Status: Acute Problem Text: Patient's H/H stable. Hgb 9.4 today. B12 being supplemented. Patient feeling improved. FOBT negative. (2) CHF (congestive heart failure) Status: Acute Problem Text: patient feeling improved. no crackles on exam. diuresed 650mL yesterday. Total of 5.5L diuresed since admission. Will continue patient's Lasix and Spironolactone. Echo still pending. (3) Fever Status: Acute Problem Text: Patient with t max of 100.3 yesterday. temp normal since then. BC negative at 24 hours, will continue to follow. Ucx negative. Clinically well appearing. (4) Bradycardia Status: Acute Problem Text: Patient with HR's initially ranging from mid 40's to 60. Patient on Metoprolol succinate 100mg at home. patient's Metoprolol changed to Metoprolol tartrate with hold parameters, and multiple doses have been held, HR now in the 60s and 70s. Will change patient from Metoprolol 12.5mg q6 to Metoprolol tartrate 25mg BID and continue to monitor patient's HR. Spoke with Dr. Benitez, patient's oil and gas drafter, who agrees with plan and will follow up with patient as OP. (5) Exertional dyspnea Status: Acute Problem Text: Improved per patient. PT/OT on board. (6) Atrial fibrillation Status: Chronic Problem Text: Patient is anticoagulated with Coumadin. INR subtherapeutic today. Pt on Coumadin 10mg. Will give extra 3mg today and follow INR. Discussed with patient who reports his INR has been labile for a while and difficult to maintain at target. Patient notes he is on Coumadin for paroxysmal a-fib. Discussed with patient other anticoagulation options, including Eliquis. Patient will be discussing with his prior to making formal decisions. Continue beta charlene and monitor rate control. (7) HTN (hypertension) Status: Chronic Problem Text: Continue holding patient's Amlodipine at this time, and continue patient's home Telmisartan with holding parameters for SBP <110. Will reassess at the time of discharge to restart the Amlodipine. (8) Gout Status: Chronic Response to Treatment: Stable Problem Text: Continue Allopurinol. (9) Neuropathy Status: Chronic Problem Text: Continue patient's Gabapentin. (10) Hyperlipidemia Status: Chronic Problem Text: Continue patient's statin. Plan/VTE VTE Prophylaxis Ordered?: Yes (Warfarin) VS, I&O, 24H, Fishbone Vital Signs/I&O Vital Signs Date Time Temp Pulse Resp B/P (MAP) Pulse Ox O2 Delivery O2 Flow Rate FiO2 05/02/17 07:50 98.4 78 20 132/60 (84) 91 Room Air 05/01/17 05:42 3.0 I&O- Last 24 Hours up to 6 AM 05/03/17 06:00 Intake Total 360 ml Output Total 450 ml Balance -90 ml Laboratory Data 24H LABS Laboratory Tests 2 05/01/17 08:54: Urine Appearance CLEAR, Urine Color YELLOW, Urine pH 5.0, Urine Specific [place] 1.020, Urine Protein NEGATIVE, Urine Glucose (UA) NEGATIVE, Urine Ketones NEGATIVE, Urine Urobilinogen 0.2, Urine Bilirubin NEGATIVE, Urine Leukocyte Esterase NEGATIVE, Urine Blood NEGATIVE, Urine Nitrite NEGATIVE, Urine WBC (Auto) 0, Urine RBC (Auto) 2, Urine Hyaline Casts (Auto) 1, Urine Bacteria (Auto) NEGATIVE, Urine Squamous Epithelial Cells 0, Urine Mucus (Auto) SMALL, Urine Sperm (Auto) 05/01/17 09:25: Thyroid Stimulating Hormone (TSH) 2.560, Free Thyroxine 0.87 05/02/17 05:20: Nucleated Red Blood Cells % (auto) 0.0, Prothrombin Time 22.5H, Prothromb Time International Ratio 1.91, Anion Gap 7L, Glomerular Filtration Rate > 60.0, Blood Urea Nitrogen 27H, Creatinine 1.22, Sodium Level 139, Potassium Level 4.0 , Chloride Level 105, Carbon Dioxide Level 27, Calcium Level 8.3L, Magnesium Level 2.2 CBC/BMP Laboratory Tests 05/02/17 05:20 Red Blood Count 2.94 L, Mean Corpuscular Volume 96.9 H, Mean Corpuscular Hemoglobin 32.0, Mean Corpuscular Hemoglobin Concent 33.0, Red Cell Distribution Width 14.5, Calcium Level 8.3 L Microbiology Microbiology 05/01/17 Blood Culture - Preliminary, Resulted No growth after 24 hours . All specim... 05/01/17 Blood Culture - Preliminary, Resulted No growth after 24 hours . All specim... 05/01/17 Stool Occult Blood (TAD) - Final, Complete 05/01/17 Urine Culture, Received Pending Attending Note Attending Note I have seen and examined the above patient and agree with the above documentation. KESHAWN BROWN DO May 02, 2017 08:59 GLEN TRUJILLO May 02, 2017 18:33
[2017-05-02 19:53] VITALS: BP 141/77
[2017-05-02] MEDS: PRAVASTATIN 20 MG TAB PO SCH (20:10)
[2017-05-02] MEDS: ALLOPURINOL 300 MG TAB PO SCH (20:10)
[2017-05-02] MEDS: DOXAZOSIN MESYLATE 1 MG TAB PO SCH (20:10)
[2017-05-02] MEDS: ASPIRIN 81 MG ENTERIC TAB PO SCH (20:10)
[2017-05-02] MEDS: TELMISARTAN 20 MG TAB PO SCH (20:10)
[2017-05-02] MEDS: METOPROLOL TART 25 MG TABLET PO SCH (20:11)
--- NOTE | 2017-05-02 22:42 | ECHO ---
DATE OF PROCEDURE: 05/02/2017 REFERRING PHYSICIAN: Sukhi Mathews MD and Antonio Wynn MD INDICATION: Congestive heart failure. HEIGHT: 180 cm WEIGHT: 150 kg DIMENSIONS: IVS: 1.2 cm LV: 5.0 cm LVPW: 1.2 cm LA: 4.4 cm Aorta: 3.4 cm FINDINGS: The study is of acceptable technical quality considering patient's body habitus. Left ventricle is of normal size and systolic function with estimated ejection fraction (EF) around 60-65%. Mild left ventricular hypertrophy is noted. Right ventricle appears normal. Left atrium is at least mildly enlarged. Right atrium is probably normal size. Aortic valve has three cusps. It is mildly sclerotic, but mobility seems to be reasonably preserved. Mitral and tricuspid valves appear normal. Pulmonic valve was not well seen. No pericardial effusion is noted. Inferior vena cava is dilated, but has appropriate collapse with respiration indicative of probably mildly elevated central venous pressure. Aortic root is normal. Aortic arch and abdominal aorta were not well seen. Doppler interrogation of aortic valve reveals mild stenosis (mean gradient 15 mmHg) and trivial insufficiency. There is trace mitral insufficiency and mild tricuspid insufficiency. Calculated pulmonary artery pressure is in 40s corresponding to moderate pulmonary hypertension. Mitral inflow pattern and tissue Doppler imaging of mitral annulus reveal normal diastolic function (E prime septal is 9.2 and E prime lateral 13.8 cm/s). CONCLUSIONS: 1. Study is of acceptable technical quality. 2. Normal left ventricle (LV) size with mild left ventricular hypertrophy (LVH) and preserved LV systolic function. Likely preserved diastolic function. 3. Mild aortic stenosis. 4. Elevated central venous pressure. 5. Suggestive of moderate pulmonary hypertension. COMMENTS: Subacute bacterial endocarditis (SBE) prophylaxis is not recommended.
[2017-05-02 23:59] VITALS: BP 110/70
[2017-05-03 04:00] VITALS: BP 116/64
[2017-05-03] MEDS: SLF 3 ML SYR IV SCH (06:00)
[2017-05-03] MEDS: CYANOCOBALAMIN 500 MCG TAB PO SCH (06:04)
[2017-05-03 06:22] LABS: MEAN CORPUSCULAR HEMOGLOBIN 31.5 pg (27.0-33.0); MEAN CORPUSCULAR HGB CONC 32.8 g/dl (32.0-36.5); MEAN CORPUSCULAR VOLUME 96.2 fl (80.0-96.0); WHITE BLOOD COUNT 5.5 10^3/uL (4.0-10.0)
[2017-05-03 06:32] LABS: ANION GAP 7 MEQ/L (8-16); BLOOD UREA NITROGEN 23 MG/DL (7-18); CALCIUM LEVEL 8.5 MG/DL (8.8-10.2); CARBON DIOXIDE LEVEL 27 MEQ/L (21-32); CHLORIDE LEVEL 106 MEQ/L (98-107); CREATININE FOR GFR 1.02 MG/DL (0.70-1.30); GLOMERULAR FILTRATION RATE > 60.0 (>42); GLUCOSE, FASTING 115 MG/DL (83-110); MAGNESIUM LEVEL 2.5 MG/DL (1.8-2.4); POTASSIUM SERUM 3.5 MEQ/L (3.5-5.1); SODIUM LEVEL 140 MEQ/L (136-145)
[2017-05-03 06:36] LABS: INR 1.86
[2017-05-03 08:00] VITALS: BP 122/72
[2017-05-03] MEDS ORDERED: METO1TAB7 PO (08:38)
[2017-05-03] MEDS ORDERED: VITA500T53 PO (08:38)
[2017-05-03] MEDS ORDERED: WARF4TAB52 PO (08:41)
[2017-05-03] MEDS ORDERED: INFLUENZA VIRUS VACCINE HIGH DOSE 0.5 ML SYRINGE (90662) IM ONE (09:00)
[2017-05-03] MEDS ORDERED: PREVNAR 13 VACCINE SYRINGE (CPT CODE:90670) IM ONE (09:00)
--- NOTE | 2017-05-03 09:12 | NOCOX ---
DATE OF PROCEDURE: 05/03/2017 Testing was performed on room air on bilevel noninvasive therapy at 21/16, resting oxygen saturation was 87% while awake. Unfortunately, during the first part of the study, the oximetry malfunctioned and therefore we could not and obtain any data until the machine was switched out at approximately 01:17 a.m. The total recording time after that was only 4 hours and 49 minutes. There was significant variable desaturations with associated heart rate variability. The total time with an oxygen saturation less than 88% was 4 minutes and 46 seconds. The longest continuous time with an oxygen saturation less than 88% was 2 minutes and 42 seconds. According to the documentation of the respiratory therapist, the patient was on bilevel the entire night. Heart rate ranged from 47 to 132. IMPRESSION: Nocturnal hypoxia. Variable desaturations associated with heart rate variability. If ongoing untreated sleep apnea is suspected, would recommend repeat in lab titration. MTDD
[2017-05-03 10:23] VITALS: BP 122/72
[2017-05-03] MEDS: SPIRONOLACTONE 25 MG TAB PO SCH (10:23)
[2017-05-03] MEDS: GABAPENTIN 300 MG CAP PO SCH (10:23)
[2017-05-03] MEDS: METOPROLOL TART 25 MG TABLET PO SCH (10:23)
[2017-05-03] MEDS: FUROSEMIDE 40 MG TAB PO SCH (10:23)
--- NOTE | 2017-05-03 19:09 | DS.PDOC ---
Discharge Summary General Date of Admission Apr 30, 2017 at 15:43 Date of Discharge 05/03/2017 Discharge Summary PHYSICIANS: PCP: Charline Valle [employer] Insurance Claim Examiner: Dr. Benitez ATTENDING AT TIME OF DISCHARGE: Dr. Fadumo Davis DISCHARGE DIAGNOS(E)S: 1. Anemia secondary to B12 deficiency 2. Congestive heart failure 3. Bradycardia 4. Exertional dyspnea 5. Chronic paroxysmal atrial fibrillation 6. Hypertension 7. Gout 8. Neuropathy 9. Hyperlipidemia 10. Fever HPI & HOSPITAL COURSE: Mr. Hare is a 72-year-old male who presented to the emergency department with dyspnea upon exertion and profound weakness. It was suspected that this was secondary to a combination of factors including anemia, bradycardia, and volume overload. His dose of metoprolol was lowered and his heart rate came up from the high 40s low 50s, and he has been in the 60s and 70s for the past couple days. He did go into atrial fibrillation the evening prior to discharge, however he does continue to be rate controlled at this time. He was continued on his home dose of Lasix which he normally takes 4 times a day, however his fluid intake was significantly lower while inpatient, therefore he diuresed quite well and had a net negative of 5 L during his entire hospitalization. During the workup for his anemia, his reticulocyte index was calculated to be 0.8 meaning that his bone marrow response to anemia is inadequate, it was also noted that he has a low B12 which would explain this phenomenon, therefore he was started on B12 supplementation. During his hospitalization and was also noticed that he was desaturating at night, therefore some oxygen was given as a supplementation to his CPAP, however this did not occur the night before discharge, and I suspect that his desaturations may have been from volume overload. It has been, however, a few years since his CPAP was adjusted, therefore he may need to have this titrated once again. Otherwise, on today the day of discharge, he is feeling significantly better, shortness of breath is resolved, and he has been doing quite well with physical therapy. He does appear stable for discharge at this time. PHYSICAL EXAMINATION ON DISCHARGE: GENERAL: Awake, alert, oriented 3. CARDIOVASCULAR EXAMINATION: Irregularly irregular with variable S1 and S2. RESPIRATORY EXAMINATION: Clear to auscultation bilaterally with no wheezes, rales, or rhonchi. ABDOMINAL EXAMINATION: Soft, nontender, nondistended. Bowel sounds present. EXTREMITIES: No clubbing or edema noted. 2+ pulses in the radial bilaterally. DISPOSITION: Home DISCHARGE INSTRUCTIONS: Follow-up with primary care provider Charline Valle within 7-10 days. Follow-up with textile dyer Dr. Benitez within 2 weeks. Follow-up with size worker Dr. Ruth previously scheduled appointment which is coming up within the next 1-2 months, and recommend reevaluation of CPAP. Recommend decreased fluid intake and a 2 g sodium diet. Activity as tolerated. If symptoms return, or if you experience worsening of your symptoms, please call your doctor or return to the emergency department. DISCHARGE MEDICATIONS: Continue taking from home: Acetaminophen 1000 mg by mouth 3 times a day when necessary pain Allopurinol 300 mg by mouth daily at bedtime Aspirin 81 mg by mouth daily at bedtime Doxazosin 4 mg by mouth daily at bedtime Flonase 2 sprays nasally daily at bedtime when necessary congestion Furosemide 40 mg by mouth 4 times a day Gabapentin 300 mg by mouth 3 times a day Pravastatin 20 mg by mouth daily at bedtime Spironolactone 25 mg by mouth daily Telmisartan 80 mg by mouth daily at bedtime New Medications: Change dose of Warfarin, now 11 mg by mouth daily Vitamin B12 1000 and CG by mouth daily Metoprolol succinate 50 mg by mouth at bedtime Stop Taking: Metoprolol succinate 100 mg by mouth daily at bedtime Amlodipine 2.5 mg by mouth daily at bedtime ITEMS THAT NEED OUTPATIENT FOLLOWUP: Repeat INR within 1 week, and adjustment of warfarin as necessary. Recommend reevaluation of CPAP settings as the patient did desaturate most nights while he was inpatient. He will also need follow-up of his H&H for B12 deficiency anemia. My preceptor for this patient encounter was physically present in the building during the encounter and was fully available. As needed, all aspects of the patient interview, examination, medical decision making process, and medical care plan development were reviewed and approved by the preceptor. Preceptor is aware and concurs with the plan as stated in the body of this note and will attest to such by his/her cosignature. Vital Signs/I&Os Vital Signs Date Time Temp Pulse Resp B/P (MAP) Pulse Ox O2 Delivery O2 Flow Rate FiO2 05/03/17 10:23 98 122/72 05/03/17 08:00 97.7 18 94 NIPPV (BIPAP/CPAP) 05/01/17 05:42 3.0 Laboratory Data Labs 24H Laboratory Tests 2 05/03/17 05:50: Nucleated Red Blood Cells % (auto) 0.0, Prothrombin Time 22.0H, Prothromb Time International Ratio 1.86, Anion Gap 7L, Glomerular Filtration Rate > 60.0, Blood Urea Nitrogen 23H, Creatinine 1.02, Sodium Level 140, Potassium Level 3.5 , Chloride Level 106, Carbon Dioxide Level 27, Calcium Level 8.5L, Magnesium Level 2.5H CBC/BMP Laboratory Tests 05/03/17 05:50 Red Blood Count 3.17 L, Mean Corpuscular Volume 96.2 H, Mean Corpuscular Hemoglobin 31.5, Mean Corpuscular Hemoglobin Concent 32.8, Red Cell Distribution Width 14.0, Calcium Level 8.5 L Microbiology Microbiology 05/01/17 Blood Culture - Preliminary, Resulted No Growth after 48 hours. All Specime... 05/01/17 Blood Culture - Preliminary, Resulted No Growth after 48 hours. All Specime... 05/01/17 Stool Occult Blood (TAD) - Final, Complete 05/01/17 Urine Culture - Final, Complete Discharge Medications Scheduled Allopurinol (Zyloprim) 300 Mg Tab, 300 MG PO QHS, (Reported) Aspirin (Aspir-Low) 81 Mg Tab, 81 MG PO QHS, (Reported) Cyanocobalamin (Vitamin B12) 500 Mcg Tab, 1,000 MCG PO DAILY@0600 Take on an empty stomach Doxazosin Mesylate (Doxazosin Mesylate) 2 Mg Tab, 4 MG PO QHS, (Reported) Furosemide (Furosemide) 40 Mg Tab, 40 MG PO QID, (Reported) Gabapentin (Gabapentin) 300 Mg Cap, 300 MG PO TID, (Reported) Metoprolol Succinate (Metoprolol Succinate ER) 50 Mg Tab, 50 MG PO DAILY Pravastatin Sodium (Pravastatin Sodium) 20 Mg Tab, 20 MG PO QHS, (Reported) Spironolactone (Spironolactone) 25 Mg Tab, 25 MG PO DAILY, (Reported) Telmisartan (Telmisartan) 80 Mg Tab, 80 MG PO QHS, (Reported) Warfarin Sod (Coumadin) 10 Mg Tab, 10 MG PO QHS, (Reported) Warfarin Sod (Warfarin Sodium) 1 Mg Tab, 1 MG PO DAILY Scheduled PRN (Flonase Allergy Relief) 50 Mcg/Act Spr, 2 SPRAYS NA QHS PRN for NASAL CONGESTION, (Reported) Acetaminophen (Tylenol Extra Strength) 500 Mg Tab, 1,000 MG PO TID PRN for PAIN, (Reported) Allergies Coded Allergies: No Known Allergies (Unverified , 11/23/16) Attending Note Attending Note I have seen and examined the above patient and agree with the above documentation. Time spent on discharge: >30 min KESHAWN BROWN DO May 03, 2017 19:09 FADUMO DAVIS May 09, 2017 14:16
== END 2017-05-03 11:54 | disposition home or self-care (01) | DRG 293 ==
LOC: M ED 10:07 → M ED INP 15:43 → M PCU 18:58
PROVIDERS: ADMIT Internal Medicine; ATTEND Hospitalist
PROC: 30233N1 Transfusion of Nonautologous Red Blood Cells into Peripheral Vein, Percutaneous Approach (ICD-10-PCS; principal; 2017-04-30)
DX: I11.0 Hypertensive heart disease with heart failure (principal); I50.9 Heart failure, unspecified; I48.91 Unspecified atrial fibrillation; G47.33 Obstructive sleep apnea (adult) (pediatric); D64.9 Anemia, unspecified; E78.5 Hyperlipidemia, unspecified; G62.9 Polyneuropathy, unspecified; M10.9 Gout, unspecified; Z79.82 Long term (current) use of aspirin; Z79.01 Long term (current) use of anticoagulants; Z99.89 Dependence on other enabling machines and devices; Z87.891 Personal history of nicotine dependence

== ENCOUNTER → 2017-05-06 | Outpatient (CLI) | payer MEDICARE, OTHER ==
[~2017-05-06] MED LIST changes: +DOXA1TAB41 PO; +FLON1SPR; +KEFL500C17 PO; +METO1TAB7 PO; +VITA500T53 PO; +WARF4TAB52 PO
[2017-05-06 18:01] LABS: INR 1.93
== END ==
LOC: M WUC 15:08
PROVIDERS: ATTEND Family Medicine
DX: Z51.81 Encounter for therapeutic drug level monitoring (principal); I48.2 Chronic atrial fibrillation; Z79.01 Long term (current) use of anticoagulants

== ENCOUNTER 2017-05-12 18:11 | Emergency (ER) | payer MEDICARE, OTHER ==
[~2017-05-12] VITALS: Ht 180.3 cm; Wt 145.4 kg
[~2017-05-12 18:11] MED LIST changes: -KEFL500C17 PO
[2017-05-12 18:12] VITALS: BP 132/62
[2017-05-12] MEDS ORDERED: ADACEL/BOOSTRIX VACCINE (DIPHTH/PERTUSS/ACELL/TETANUS)0.5ML SYR (90715) IM ONE (19:00)
[2017-05-12] MEDS ORDERED: TETANUS/DIPHTHERIA TOX ADSORB ADULT 0.5ML SYR/VIAL (90714) IM ONE (19:00)
[2017-05-12] MEDS ORDERED: KEFL500C17 PO (19:11)
== END 2017-05-12 19:30 | disposition home or self-care (01) ==
LOC: M ED 18:11
DX: S61.212A Laceration without foreign body of right middle finger without damage to nail, initial encounter (principal); W26.8XXA Contact with other sharp object(s), not elsewhere classified, initial encounter; Y92.89 Other specified places as the place of occurrence of the external cause; Y93.89 Activity, other specified; Y99.8 Other external cause status; I25.10 Atherosclerotic heart disease of native coronary artery without angina pectoris; Z79.899 Other long term (current) drug therapy; Z79.01 Long term (current) use of anticoagulants

== ENCOUNTER → 2017-05-13 | Outpatient (CLI) | payer MEDICARE, OTHER ==
[~2017-05-13] MED LIST changes: +KEFL500C17 PO
[2017-05-13 19:43] LABS: INR 1.9
== END ==
LOC: M WUC 11:46
PROVIDERS: ATTEND Family Medicine
DX: Z51.81 Encounter for therapeutic drug level monitoring (principal); Z79.01 Long term (current) use of anticoagulants; I48.2 Chronic atrial fibrillation

== ENCOUNTER → 2017-06-05 | Outpatient (CLI) | payer MEDICARE, OTHER ==
[2017-06-05 17:02] LABS: INR 1.65
== END ==
LOC: M WUC 13:54
PROVIDERS: ATTEND Family Medicine
DX: I48.2 Chronic atrial fibrillation (principal)

== ENCOUNTER → 2017-06-11 | Outpatient (CLI) | payer MEDICARE, OTHER ==
[2017-06-11 18:32] LABS: INR 1.72
== END ==
LOC: M WUC 14:37
PROVIDERS: ATTEND Family Medicine
DX: I48.2 Chronic atrial fibrillation (principal); Z79.01 Long term (current) use of anticoagulants

== ENCOUNTER → 2017-06-18 | Outpatient (CLI) | payer MEDICARE, OTHER ==
[2017-06-18 17:17] LABS: ANION GAP 7 MEQ/L (8-16); BLOOD UREA NITROGEN 31 MG/DL (7-18); CALCIUM LEVEL 8.8 MG/DL (8.8-10.2); CARBON DIOXIDE LEVEL 26 MEQ/L (21-32); CHLORIDE LEVEL 107 MEQ/L (98-107); CREATININE FOR GFR 1.21 MG/DL (0.70-1.30); GLOMERULAR FILTRATION RATE > 60.0 (>42); GLUCOSE, FASTING 174 MG/DL (83-110); SODIUM LEVEL 140 MEQ/L (136-145)
[2017-06-18 17:24] LABS: INR 2.18
== END ==
LOC: M WUC 11:17
PROVIDERS: ATTEND Family Medicine
DX: M79.1 Myalgia (principal); I48.2 Chronic atrial fibrillation

== ENCOUNTER → 2017-06-25 | Outpatient (CLI) | payer MEDICARE, OTHER ==
[2017-06-25 13:44] LABS: INR 1.72
== END ==
LOC: M WUC 10:39
PROVIDERS: ATTEND Family Medicine
DX: I48.2 Chronic atrial fibrillation (principal)

== ENCOUNTER → 2017-07-05 | Outpatient (CLI) | payer MEDICARE, OTHER ==
[2017-07-05 16:59] LABS: INR 1.71
== END ==
LOC: M WUC 14:27
PROVIDERS: ATTEND Family Medicine
DX: Z51.81 Encounter for therapeutic drug level monitoring (principal); Z79.01 Long term (current) use of anticoagulants

== ENCOUNTER → 2017-07-12 | Outpatient (CLI) | payer MEDICARE, OTHER ==
[2017-07-12 13:06] LABS: INR 2.05
== END ==
LOC: M WUC 09:49
PROVIDERS: ATTEND Family Medicine
DX: Z51.81 Encounter for therapeutic drug level monitoring (principal); Z79.01 Long term (current) use of anticoagulants

== ENCOUNTER → 2017-07-19 | Outpatient (CLI) | payer MEDICARE, OTHER ==
[2017-07-19 12:00] LABS: INR 2.28
== END ==
LOC: M WUC 08:57
DX: Z79.01 Long term (current) use of anticoagulants (principal)
CPT/HCPCS: 85610

== ENCOUNTER → 2017-08-09 | Outpatient (CLI) | payer MEDICARE, OTHER ==
[2017-08-09 18:27] LABS: INR 2.13; PROTHROMBIN TIME 24.6 SECONDS (12.4-14.5)
== END ==
LOC: M WUC 13:20
DX: Z51.81 Encounter for therapeutic drug level monitoring (principal); Z79.01 Long term (current) use of anticoagulants
CPT/HCPCS: 85610

== ENCOUNTER → 2017-08-16 | Outpatient (CLI) | payer MEDICARE, OTHER ==
[2017-08-16 20:56] LABS: ALBUMIN 4.1 GM/DL (3.2-5.2); ALBUMIN/GLOBULIN RATIO 1.17 (1.00-1.93); ALKALINE PHOSPHATASE 103 U/L (45-117); ALT/SGPT 27 U/L (12-78); ANION GAP 4 MEQ/L (8-16); AST/SGOT 15 U/L (7-37); BILIRUBIN,TOTAL 0.6 MG/DL (0.2-1.0); BLOOD UREA NITROGEN 25 MG/DL (7-18); CALCIUM LEVEL 9.1 MG/DL (8.8-10.2); CARBON DIOXIDE LEVEL 31 MEQ/L (21-32); CHLORIDE LEVEL 105 MEQ/L (98-107); CHOLESTEROL LEVEL 144 MG/DL (<200); CHOLESTEROL RISK RATIO 3.428 (<5); CREATININE FOR GFR 1.21 MG/DL (0.70-1.30); GLOMERULAR FILTRATION RATE > 60.0 (>42); GLUCOSE, FASTING 122 MG/DL (70-100); HDL CHOLESTEROL 42 MG/DL (>40); LDL CHOLESTEROL 76.2 MG/DL (<100); MAGNESIUM LEVEL 2.3 MG/DL (1.8-2.4); NON-HDL-C 102 MG/DL; POTASSIUM SERUM 4.6 MEQ/L (3.5-5.1); SODIUM LEVEL 140 MEQ/L (136-145); TOTAL PROTEIN 7.6 GM/DL (6.4-8.2); TRIGLYCERIDES LEVEL 129 MG/DL (<150)
[2017-08-16 21:05] LABS: INR 2.22; PROTHROMBIN TIME 25.4 SECONDS (12.4-14.5)
[2017-08-16 21:07] LABS: ESTIMATED AVERAGE GLUCOSE 128 MG/DL (60-110); HEMOGLOBIN A1c 6.1 %
[2017-08-16 21:12] LABS: BASO % 0.7 % (0.0-1.0); EOS # 0.1 10^3/uL (0.0-0.50); EOS % 2.2 % (0.0-3.0); HEMATOCRIT 37.3 % (42.0-52.0); HEMOGLOBIN 11.8 g/dl (14.0-18.0); IMMATURE GRANULOCYTE % 0.2 % (0-0); LYMPH # 1.2 10^3/uL (1.5-4.5); LYMPH % 22.3 % (24.0-44.0); MEAN CORPUSCULAR HEMOGLOBIN 30.4 pg (27.0-33.0); MEAN CORPUSCULAR HGB CONC 31.6 g/dl (32.0-36.5); MEAN CORPUSCULAR VOLUME 96.1 fl (80.0-96.0); MONO # 0.7 10^3/uL (0.0-0.8); MONO % 12.7 % (0.0-5.0); NEUTROPHILS # 3.3 10^3/uL (1.8-7.7); NEUTROPHILS % 61.9 % (36.0-66.0); PLATELET COUNT, AUTOMATED 186 10^3/uL (150-450); RED BLOOD COUNT 3.88 10^6/uL (4.30-6.10); RED CELL DISTRIBUTION WIDTH 14.7 % (11.5-14.5); WHITE BLOOD COUNT 5.3 10^3/uL (4.0-10.0)
[2017-08-16 21:20] LABS: TOTAL 25(OH) VITAMIN D 16.6 NG/ML (30.0-100.0); VITAMIN B12 LEVEL 1126 PG/ML (247-911)
[2017-08-16 21:47] LABS: ERYTHROCYTE SEDIMENTATION RATE 33 mm/hr (0-20)
== END ==
LOC: M WUC 11:24
DX: R73.01 Impaired fasting glucose (principal); R53.83 Other fatigue; M79.1 Myalgia; I48.1 Persistent atrial fibrillation; D51.9 Vitamin B12 deficiency anemia, unspecified; I10 Essential (primary) hypertension; Z79.01 Long term (current) use of anticoagulants
CPT/HCPCS: 83735

== ENCOUNTER → 2017-09-05 | Outpatient (CLI) | payer MEDICARE, OTHER ==
[2017-09-05 12:28] LABS: INR 2.55; PROTHROMBIN TIME 28.5 SECONDS (12.4-14.5)
== END ==
LOC: M WUC 09:19
DX: Z51.81 Encounter for therapeutic drug level monitoring (principal); Z79.01 Long term (current) use of anticoagulants
CPT/HCPCS: 85610

== ENCOUNTER → 2017-09-29 | Outpatient (CLI) | payer MEDICARE, OTHER ==
[2017-09-29 17:30] LABS: INR 2.74; PROTHROMBIN TIME 30.2 SECONDS (12.4-14.5)
== END ==
LOC: M WUC 16:09
DX: Z51.81 Encounter for therapeutic drug level monitoring (principal); Z79.01 Long term (current) use of anticoagulants
CPT/HCPCS: 85610

== ENCOUNTER → 2017-11-15 | Outpatient (CLI) | payer MEDICARE, OTHER ==
[2017-11-15 16:46] LABS: INR 1.58; PROTHROMBIN TIME 19.3 SECONDS (12.4-14.5)
== END ==
LOC: M WUC 15:07
DX: Z51.81 Encounter for therapeutic drug level monitoring (principal); Z79.01 Long term (current) use of anticoagulants
CPT/HCPCS: 85610

== ENCOUNTER → 2017-11-22 | Outpatient (CLI) | payer MEDICARE, OTHER ==
[2017-11-22 16:53] LABS: INR 2.28
== END ==
LOC: M WUC 13:02
DX: Z51.81 Encounter for therapeutic drug level monitoring (principal); Z79.01 Long term (current) use of anticoagulants
CPT/HCPCS: 85610

== ENCOUNTER → 2017-11-29 | Outpatient (CLI) | payer MEDICARE, OTHER ==
[2017-11-29 16:57] LABS: INR 2.18; PROTHROMBIN TIME 25.1 SECONDS (12.4-14.5)
== END ==
LOC: M WUC 13:49
DX: Z51.81 Encounter for therapeutic drug level monitoring (principal); Z79.01 Long term (current) use of anticoagulants
CPT/HCPCS: 85610

== ENCOUNTER → 2017-12-20 | Outpatient (CLI) | payer MEDICARE, OTHER ==
[2017-12-20 17:19] LABS: INR 2.09; PROTHROMBIN TIME 24.2 SECONDS (12.4-14.5)
== END ==
LOC: M WUC 11:05
DX: Z51.81 Encounter for therapeutic drug level monitoring (principal); Z79.01 Long term (current) use of anticoagulants
CPT/HCPCS: 85610

== ENCOUNTER → 2018-02-08 | Outpatient (CLI) | payer MEDICARE, OTHER ==
[2018-02-08 12:59] LABS: BASO % 0.6 % (0.0-1.0); EOS # 0.1 10^3/uL (0.0-0.50); EOS % 2.9 % (0.0-3.0); IMMATURE GRANULOCYTE % 0.6 % (0-3.0); LYMPH # 1.3 10^3/uL (1.5-4.5); LYMPH % 26.6 % (24.0-44.0); MEAN CORPUSCULAR HEMOGLOBIN 32.6 pg (27.0-33.0); MEAN CORPUSCULAR HGB CONC 33.3 g/dl (32.0-36.5); MEAN CORPUSCULAR VOLUME 97.8 fl (80.0-96.0); MONO # 0.7 10^3/uL (0.0-0.8); MONO % 14.5 % (0.0-5.0); NEUTROPHILS # 2.6 10^3/uL (1.8-7.7); NEUTROPHILS % 54.8 % (36.0-66.0); PLATELET COUNT, AUTOMATED 171 10^3/uL (150-450); RED BLOOD COUNT 3.68 10^6/uL (4.30-6.10); RED CELL DISTRIBUTION WIDTH 14.6 % (11.5-14.5); WHITE BLOOD COUNT 4.8 10^3/uL (4.0-10.0)
[2018-02-08 13:12] LABS: INR 2.05; PROTHROMBIN TIME 23.5 SECONDS (12.1-14.4)
[2018-02-08 13:15] LABS: ESTIMATED AVERAGE GLUCOSE 131 MG/DL (60-110); HEMOGLOBIN A1c 6.2 %
[2018-02-08 13:17] LABS: ALBUMIN 4.2 GM/DL (3.2-5.2); ALKALINE PHOSPHATASE 88 U/L (45-117); ALT/SGPT 32 U/L (12-78); ANION GAP 8 MEQ/L (8-16); AST/SGOT 24 U/L (7-37); BILIRUBIN,TOTAL 0.5 MG/DL (0.2-1.0); BLOOD UREA NITROGEN 37 MG/DL (7-18); CALCIUM LEVEL 8.6 MG/DL (8.8-10.2); CARBON DIOXIDE LEVEL 27 MEQ/L (21-32); CHLORIDE LEVEL 104 MEQ/L (98-107); CREATININE FOR GFR 1.31 MG/DL (0.70-1.30); GLOMERULAR FILTRATION RATE 57.3 (>42); GLUCOSE, FASTING 141 MG/DL (70-100); POTASSIUM SERUM 4.6 MEQ/L (3.5-5.1); SODIUM LEVEL 139 MEQ/L (136-145); TOTAL PROTEIN 7.7 GM/DL (6.4-8.2)
[2018-02-10 09:52] LABS: TOTAL 25(OH) VITAMIN D 76.4 NG/ML (30.0-100.0)
== END ==
LOC: M WUC 11:43
DX: Z79.01 Long term (current) use of anticoagulants (principal); R73.01 Impaired fasting glucose; E55.9 Vitamin D deficiency, unspecified
CPT/HCPCS: 80053

== ENCOUNTER → 2018-02-21 | Outpatient (CLI) | payer MEDICARE, OTHER ==
[2018-02-21 16:57] LABS: PROTHROMBIN TIME 25.8 SECONDS (12.1-14.4)
== END ==
LOC: M WUC 14:03
DX: I48.1 Persistent atrial fibrillation (principal); Z79.01 Long term (current) use of anticoagulants
CPT/HCPCS: 85610

== ENCOUNTER → 2018-04-18 | Outpatient (CLI) | payer MEDICARE, OTHER ==
[2018-04-18 17:53] LABS: INR 2.41; PROTHROMBIN TIME 26.7 SECONDS (12.1-14.4)
== END ==
LOC: M WUC 13:41
DX: Z51.81 Encounter for therapeutic drug level monitoring (principal); Z79.01 Long term (current) use of anticoagulants; I48.1 Persistent atrial fibrillation
CPT/HCPCS: 85610

== ENCOUNTER → 2018-05-15 | Outpatient (CLI) | payer MEDICARE, OTHER ==
[2018-05-15 17:11] LABS: INR 1.58; PROTHROMBIN TIME 19.1 SECONDS (12.1-14.4)
== END ==
LOC: M WUC 14:21
DX: I48.1 Persistent atrial fibrillation (principal); Z79.01 Long term (current) use of anticoagulants
CPT/HCPCS: 85610

== ENCOUNTER → 2018-05-30 | Outpatient (CLI) | payer MEDICARE, OTHER ==
[2018-05-30 16:38] LABS: INR 2.83; PROTHROMBIN TIME 30.4 SECONDS (12.1-14.4)
[2018-05-30 16:44] LABS: ESTIMATED AVERAGE GLUCOSE 137 MG/DL (60-110); HEMOGLOBIN A1c 6.4 %
[2018-05-30 16:51] LABS: ANION GAP 9 MEQ/L (8-16); BLOOD UREA NITROGEN 55 MG/DL (7-18); CARBON DIOXIDE LEVEL 28 MEQ/L (21-32); CHLORIDE LEVEL 99 MEQ/L (98-107); CREATININE FOR GFR 1.56 MG/DL (0.70-1.30); GLOMERULAR FILTRATION RATE 46.8 (>42); GLUCOSE, FASTING 133 MG/DL (70-100); POTASSIUM SERUM 4.5 MEQ/L (3.5-5.1); SODIUM LEVEL 136 MEQ/L (136-145)
== END ==
LOC: M WUC 14:45
DX: I48.91 Unspecified atrial fibrillation (principal); Z51.81 Encounter for therapeutic drug level monitoring; Z79.01 Long term (current) use of anticoagulants; R73.01 Impaired fasting glucose; N18.2 Chronic kidney disease, stage 2 (mild)
CPT/HCPCS: 83036

== ENCOUNTER → 2018-06-25 | Outpatient (CLI) | payer MEDICARE, OTHER ==
[2018-06-25 16:57] LABS: INR 1.76; PROTHROMBIN TIME 20.8 SECONDS (12.1-14.4)
== END ==
LOC: M WUC 12:02
DX: I48.1 Persistent atrial fibrillation (principal); Z79.01 Long term (current) use of anticoagulants
CPT/HCPCS: 85610

== ENCOUNTER → 2018-07-08 | Outpatient (CLI) | payer MEDICARE, OTHER ==
[~2018-07-08] MED LIST changes: -AMLO5TAB2; -AMLO5TAB2 PO; +AMLO5TAB6; +AMLO5TAB6 PO; -GABA-282; -GABA-282 PO; +GABA-843; +GABA-843 PO; +SPIR-10; +SPIR-10 PO; -SPIR25TA2; -SPIR25TA2 PO; -TELM1TAB2 PO; +TELM1TAB37 PO; -TOPR100T; +TOPR100T13; -ZYLO300T4 PO; +ZYLO300T6 PO
[2018-07-08 14:04] LABS: INR 2.08; PROTHROMBIN TIME 23.8 SECONDS (12.1-14.4)
== END ==
LOC: M WUC 12:35
PROVIDERS: ATTEND Family Medicine
DX: I48.1 Persistent atrial fibrillation (principal); Z51.81 Encounter for therapeutic drug level monitoring; Z79.01 Long term (current) use of anticoagulants

== ENCOUNTER → 2018-08-08 | Outpatient (CLI) | payer MEDICARE, OTHER ==
[2018-08-08 16:52] LABS: ALT/SGPT 25 U/L (12-78); BILIRUBIN,TOTAL 0.5 MG/DL (0.2-1.0); BLOOD UREA NITROGEN 27 MG/DL (7-18); CALCIUM LEVEL 8.7 MG/DL (8.8-10.2); CARBON DIOXIDE LEVEL 28 MEQ/L (21-32); CHLORIDE LEVEL 105 MEQ/L (98-107); CHOLESTEROL LEVEL 125 MG/DL (<200); CHOLESTEROL RISK RATIO 3.048 (<5); CREATININE FOR GFR 1.18 MG/DL (0.70-1.30); GLOMERULAR FILTRATION RATE > 60.0 (>42); GLUCOSE, FASTING 125 MG/DL (70-100); HDL CHOLESTEROL 41 MG/DL (>40); LDL CHOLESTEROL 62 MG/DL (<100); NON-HDL-C 84 MG/DL; POTASSIUM SERUM 4.4 MEQ/L (3.5-5.1); SODIUM LEVEL 138 MEQ/L (136-145); TOTAL PROTEIN 7.1 GM/DL (6.4-8.2); TRIGLYCERIDES LEVEL 110 MG/DL (<150)
[2018-08-08 17:24] LABS: INR 1.9; PROTHROMBIN TIME 22.1 SECONDS (12.1-14.4)
== END ==
LOC: M WUC 11:12
PROVIDERS: ATTEND Family Medicine
DX: I48.1 Persistent atrial fibrillation (principal); Z79.01 Long term (current) use of anticoagulants; R73.01 Impaired fasting glucose; Z79.899 Other long term (current) drug therapy

== ENCOUNTER → 2018-08-13 | Outpatient (CLI) | payer MEDICARE, OTHER ==
--- NOTE | 2018-08-13 13:11 | REP ---
LEFT FOOT, FOUR VIEWS: HISTORY: Pain. There is no acute fracture or dislocation. There is narrowing of the 1st metatarsal phalangeal joint space with associated osteophyte formation. There is irregularity of the head of the 1st metatarsal and base of the first proximal phalange. The remaining joint spaces are normal in appearance. An osteophyte is present on the inferior calcaneus. IMPRESSION:Degenerative change as described above. Electronically Signed by Dallas Urbina MD 08/13/2018 01:30 P
== END ==
LOC: M WUC 12:03
PROVIDERS: ATTEND Physician Assistant
DX: M19.072 Primary osteoarthritis, left ankle and foot (principal); M79.672 Pain in left foot

== ENCOUNTER → 2018-10-31 | Outpatient (CLI) | payer MEDICARE, OTHER ==
[~2018-10-31] MED LIST changes: -ALLO15TA; +ALLO300T2; +TOPR100T; -TOPR100T13; +VITA500T17 PO; -VITA500T53 PO
[2018-10-31 18:20] LABS: INR 1.85; PROTHROMBIN TIME 21.7 SECONDS (12.1-14.4)
== END ==
LOC: M WUC 14:37
PROVIDERS: ATTEND Family Medicine
DX: I48.1 Persistent atrial fibrillation (principal); Z79.01 Long term (current) use of anticoagulants

== ENCOUNTER → 2018-11-08 | Outpatient (CLI) | payer MEDICARE, OTHER ==
[2018-11-08 19:21] LABS: INR 1.63; PROTHROMBIN TIME 19.6 SECONDS (12.1-14.4)
== END ==
LOC: M WUC 12:38
PROVIDERS: ATTEND Family Medicine
DX: I48.1 Persistent atrial fibrillation (principal); Z79.01 Long term (current) use of anticoagulants

== ENCOUNTER → 2018-11-25 | Outpatient (CLI) | payer MEDICARE, OTHER ==
[2018-11-25 17:43] LABS: INR 1.72; PROTHROMBIN TIME 20.5 SECONDS (12.1-14.4)
== END ==
LOC: M WUC 14:00
PROVIDERS: ATTEND Family Medicine
DX: I48.1 Persistent atrial fibrillation (principal)

== ENCOUNTER → 2018-12-23 | Outpatient (CLI) | payer MEDICARE, OTHER ==
[2018-12-23 18:16] LABS: INR 2.28; PROTHROMBIN TIME 25.6 SECONDS (12.1-14.4)
== END ==
LOC: M WUC 13:32
PROVIDERS: ATTEND Family Medicine
DX: I48.1 Persistent atrial fibrillation (principal)

== ENCOUNTER → 2019-01-21 | Outpatient (CLI) | payer MEDICARE, OTHER ==
[2019-01-21 21:22] LABS: INR 1.78; PROTHROMBIN TIME 20.5 SECONDS (11.8-14.0)
== END ==
LOC: M WUC 17:10
PROVIDERS: ATTEND Family Medicine
DX: I48.1 Persistent atrial fibrillation (principal)

== ENCOUNTER → 2019-02-04 | Outpatient (CLI) | payer MEDICARE, OTHER ==
[2019-02-04 13:29] LABS: INR 2.25; PROTHROMBIN TIME 24.7 SECONDS (11.8-14.0)
== END ==
LOC: M WUC 10:28
PROVIDERS: ATTEND Family Medicine
DX: I48.1 Persistent atrial fibrillation (principal)

== ENCOUNTER → 2019-03-09 | Outpatient (CLI) | payer MEDICARE, OTHER ==
[2019-03-09 16:51] LABS: INR 1.86; PROTHROMBIN TIME 21.2 SECONDS (11.8-14.0)
== END ==
LOC: M WUC 12:41
PROVIDERS: ATTEND Family Medicine
DX: I48.1 Persistent atrial fibrillation (principal)

== ENCOUNTER → 2019-03-13 | Outpatient (CLI) | payer MEDICARE, OTHER ==
[2019-03-13 16:50] LABS: BASO % 0.2 % (0.0-1.0); EOS % 0.3 % (0.0-3.0); HEMATOCRIT 34.8 % (42.0-52.0); HEMOGLOBIN 11.2 g/dl (13.5-17.5); LYMPH % 16.3 % (24.0-44.0); MEAN CORPUSCULAR HEMOGLOBIN 31.3 pg (27.0-33.0); MEAN CORPUSCULAR HGB CONC 32.2 g/dl (32.0-36.5); MEAN CORPUSCULAR VOLUME 97.2 fl (80.0-96.0); MONO # 0.7 10^3/uL (0.0-0.8); MONO % 10.5 % (0.0-5.0); NEUTROPHILS # 4.6 10^3/uL (1.8-7.7); NEUTROPHILS % 72.4 % (36.0-66.0); PLATELET COUNT, AUTOMATED 189 10^3/uL (150-450); RED BLOOD COUNT 3.58 10^6/uL (4.30-6.10); WHITE BLOOD COUNT 6.4 10^3/uL (4.0-10.0)
[2019-03-13 17:02] LABS: BILIRUBIN,TOTAL 0.3 MG/DL (0.2-1.0); CALCIUM LEVEL 9.1 MG/DL (8.8-10.2); CHOLESTEROL RISK RATIO 2.931 (<5); CREATININE FOR GFR 1.6 MG/DL (0.70-1.30); GLOMERULAR FILTRATION RATE 45.3 (>42); POTASSIUM SERUM 4.6 MEQ/L (3.5-5.1); TOTAL PROTEIN 7.3 GM/DL (6.4-8.2)
[2019-03-13 17:16] LABS: HEMOGLOBIN A1c 6.5 %
== END ==
LOC: M WUC 11:21
PROVIDERS: ATTEND Family Medicine
DX: R73.01 Impaired fasting glucose (principal)

== ENCOUNTER → 2019-03-19 | Outpatient (CLI) | payer MEDICARE, OTHER ==
[2019-03-19 20:23] LABS: HEMATOCRIT 37.8 % (42.0-52.0); HEMOGLOBIN 12.2 g/dl (13.5-17.5); MEAN CORPUSCULAR HGB CONC 32.3 g/dl (32.0-36.5); MEAN CORPUSCULAR VOLUME 99.2 fl (80.0-96.0); PLATELET COUNT, AUTOMATED 189 10^3/uL (150-450); RED BLOOD COUNT 3.81 10^6/uL (4.30-6.10); WHITE BLOOD COUNT 6.1 10^3/uL (4.0-10.0)
[2019-03-19 20:44] LABS: CALCIUM LEVEL 9.3 MG/DL (8.8-10.2); CREATININE FOR GFR 1.51 MG/DL (0.70-1.30); GLOMERULAR FILTRATION RATE 48.5 (>42); POTASSIUM SERUM 4.2 MEQ/L (3.5-5.1)
== END ==
LOC: M WUC 17:45
PROVIDERS: ATTEND Internal Medicine Cardiovascular Disease
DX: I48.0 Paroxysmal atrial fibrillation (principal); I48.92 Unspecified atrial flutter; I48.1 Persistent atrial fibrillation

== ENCOUNTER → 2019-03-19 | Outpatient (CLI) | payer MEDICARE, OTHER ==
[2019-03-19 20:43] LABS: INR 2.27; PROTHROMBIN TIME 24.8 SECONDS (11.8-14.0)
== END ==
LOC: M WUC 17:41
PROVIDERS: ATTEND Family Medicine
DX: I48.1 Persistent atrial fibrillation (principal)

== ENCOUNTER → 2019-05-19 | Outpatient (CLI) | payer MEDICARE, OTHER ==
[2019-05-19 16:28] LABS: HEMATOCRIT 33.8 % (42.0-52.0); HEMOGLOBIN 10.8 g/dl (13.5-17.5); MEAN CORPUSCULAR VOLUME 100.3 fl (80.0-96.0); PLATELET COUNT, AUTOMATED 181 10^3/uL (150-450); RED BLOOD COUNT 3.37 10^6/uL (4.30-6.10); WHITE BLOOD COUNT 4.9 10^3/uL (4.0-10.0)
[2019-05-19 16:36] LABS: CALCIUM LEVEL 8.9 MG/DL (8.8-10.2); CREATININE FOR GFR 1.53 MG/DL (0.70-1.30); GLOMERULAR FILTRATION RATE 47.7 (>42); POTASSIUM SERUM 4.5 MEQ/L (3.5-5.1)
== END ==
LOC: M WUC 12:35
PROVIDERS: ATTEND Internal Medicine Cardiovascular Disease
DX: I49.5 Sick sinus syndrome (principal); I48.0 Paroxysmal atrial fibrillation

== ENCOUNTER → 2019-06-03 | Outpatient (CLI) | payer MEDICARE, OTHER ==
[2019-06-03 14:41] LABS: HEMOGLOBIN A1c 5.7 %
== END ==
LOC: M WUC 11:05
PROVIDERS: ATTEND Family Medicine
DX: R73.01 Impaired fasting glucose (principal)

== ENCOUNTER → 2019-07-16 | Outpatient (CLI) | payer MEDICARE, OTHER ==
[2019-07-16 19:44] LABS: HEMATOCRIT 36.2 % (42.0-52.0); HEMOGLOBIN 11.3 g/dl (13.5-17.5); MEAN CORPUSCULAR HEMOGLOBIN 31.1 pg (27.0-33.0); MEAN CORPUSCULAR HGB CONC 31.2 g/dl (32.0-36.5); MEAN CORPUSCULAR VOLUME 99.7 fl (80.0-96.0); PLATELET COUNT, AUTOMATED 178 10^3/uL (150-450); RED BLOOD COUNT 3.63 10^6/uL (4.30-6.10); WHITE BLOOD COUNT 5.3 10^3/uL (4.0-10.0)
[2019-07-16 19:50] LABS: BLOOD UREA NITROGEN 21 MG/DL (7-18); CALCIUM LEVEL 8.8 MG/DL (8.8-10.2); CARBON DIOXIDE LEVEL 29 MEQ/L (21-32); CHLORIDE LEVEL 107 MEQ/L (98-107); CREATININE FOR GFR 1.12 MG/DL (0.70-1.30); GLOMERULAR FILTRATION RATE > 60.0 (>42); GLUCOSE, FASTING 103 MG/DL (70-100); SODIUM LEVEL 141 MEQ/L (136-145)
== END ==
LOC: M WUC 14:04
PROVIDERS: ATTEND Internal Medicine Cardiovascular Disease
DX: I48.91 Unspecified atrial fibrillation (principal)

== ENCOUNTER → 2019-10-01 | Outpatient (CLI) | payer MEDICARE, OTHER ==
[2019-10-01 17:39] LABS: BLOOD UREA NITROGEN 26 MG/DL (7-18); CALCIUM LEVEL 9.1 MG/DL (8.8-10.2); CARBON DIOXIDE LEVEL 31 MEQ/L (21-32); CHLORIDE LEVEL 105 MEQ/L (98-107); CREATININE FOR GFR 1.09 MG/DL (0.70-1.30); GLOMERULAR FILTRATION RATE > 60.0 (>42); GLUCOSE, FASTING 110 MG/DL (70-100); MAGNESIUM LEVEL 2.4 MG/DL (1.8-2.4); SODIUM LEVEL 141 MEQ/L (136-145)
== END ==
LOC: M WUC 14:00
PROVIDERS: ATTEND Internal Medicine Cardiovascular Disease
DX: I48.0 Paroxysmal atrial fibrillation (principal); I50.32 Chronic diastolic (congestive) heart failure

== ENCOUNTER → 2019-12-21 | Outpatient (CLI) | payer MEDICARE, OTHER ==
[2019-12-21 16:32] LABS: BASO % 0.5 % (0.0-1.0); EOS # 0.1 10^3/uL (0.0-0.5); HEMATOCRIT 36.1 % (42.0-52.0); HEMOGLOBIN 11.4 g/dl (13.5-17.5); LYMPH # 1.1 10^3/uL (1.5-5.0); LYMPH % 24.8 % (24.0-44.0); MEAN CORPUSCULAR HEMOGLOBIN 31.1 pg (27.0-33.0); MEAN CORPUSCULAR HGB CONC 31.6 g/dl (32.0-36.5); MEAN CORPUSCULAR VOLUME 98.4 fl (80.0-96.0); MONO # 0.5 10^3/uL (0.0-0.8); NEUTROPHILS # 2.6 10^3/uL (1.5-8.5); NEUTROPHILS % 59.5 % (36.0-66.0); PLATELET COUNT, AUTOMATED 177 10^3/uL (150-450); RED BLOOD COUNT 3.67 10^6/uL (4.30-6.10); WHITE BLOOD COUNT 4.4 10^3/uL (4.0-10.0)
[2019-12-21 16:44] LABS: ALT/SGPT 28 U/L (12-78); BILIRUBIN,TOTAL 0.6 MG/DL (0.2-1.0); BLOOD UREA NITROGEN 24 MG/DL (7-18); CALCIUM LEVEL 8.5 MG/DL (8.8-10.2); CARBON DIOXIDE LEVEL 29 MEQ/L (21-32); CHLORIDE LEVEL 107 MEQ/L (98-107); CHOLESTEROL LEVEL 130 MG/DL (<200); CHOLESTEROL RISK RATIO 3.023 (<5); CREATININE FOR GFR 1.03 MG/DL (0.70-1.30); GLOMERULAR FILTRATION RATE > 60.0 (>42); GLUCOSE, FASTING 125 MG/DL (70-100); HDL CHOLESTEROL 43 MG/DL (>40); LDL CHOLESTEROL 75 MG/DL (<100); NON-HDL-C 87 MG/DL; SODIUM LEVEL 140 MEQ/L (136-145); TOTAL PROTEIN 7.3 GM/DL (6.4-8.2); TRIGLYCERIDES LEVEL 60 MG/DL (<150)
== END ==
LOC: M WUC 11:29
PROVIDERS: ATTEND Family Medicine
DX: I10 Essential (primary) hypertension (principal); R73.01 Impaired fasting glucose

== ENCOUNTER → 2020-01-07 | Outpatient (CLI) | payer MEDICARE, OTHER ==
[~2020-01-07] MED LIST changes: +AMLO1TAB24; +AMLO1TAB24 PO; -AMLO5TAB6; -AMLO5TAB6 PO; +FISH1000 PO; +GABA-282; +GABA-282 PO; -GABA-843; -GABA-843 PO; +HYDR-3363 PO; +K-TA10TA2 PO; +MAPA500T2 PO; +MICA80TA PO; +NEUR800T PO; +OMEG10002 PO; +SOTA120T PO; +SOTA80TA32 PO; +VITA100018 PO; +VITA50005 PO; +VOLT1GEL15 TOP; +XARE20TA PO
[2020-01-07 16:40] LABS: HEMATOCRIT 35.8 % (42.0-52.0); HEMOGLOBIN 11.4 g/dl (13.5-17.5); MEAN CORPUSCULAR HEMOGLOBIN 31.4 pg (27.0-33.0); MEAN CORPUSCULAR HGB CONC 31.8 g/dl (32.0-36.5); MEAN CORPUSCULAR VOLUME 98.6 fl (80.0-96.0); PLATELET COUNT, AUTOMATED 161 10^3/uL (150-450); RED BLOOD COUNT 3.63 10^6/uL (4.30-6.10)
[2020-01-07 16:45] LABS: BLOOD UREA NITROGEN 36 MG/DL (7-18); CARBON DIOXIDE LEVEL 27 MEQ/L (21-32); CHLORIDE LEVEL 107 MEQ/L (98-107); CREATININE FOR GFR 1.19 MG/DL (0.70-1.30); GLOMERULAR FILTRATION RATE > 60.0 (>42); GLUCOSE, FASTING 110 MG/DL (70-100); POTASSIUM SERUM 4.2 MEQ/L (3.5-5.1); SODIUM LEVEL 139 MEQ/L (136-145)
== END ==
LOC: M WUC 11:47
PROVIDERS: ATTEND Internal Medicine Cardiovascular Disease
DX: I48.91 Unspecified atrial fibrillation (principal)

== ENCOUNTER → 2020-02-18 | Outpatient (REF) | payer MEDICARE, OTHER ==
[~2020-02-18] MED LIST changes: -FISH1000 PO; -GABA-282; -GABA-282 PO; +GABA-843; +GABA-843 PO; -HYDR-3363 PO; -K-TA10TA2 PO; -MAPA500T2 PO; -MICA80TA PO; -NEUR800T PO; -OMEG10002 PO; -SOTA120T PO; -SOTA80TA32 PO; -VITA100018 PO; -VITA50005 PO; -VOLT1GEL15 TOP; -XARE20TA PO
[2020-03-17 21:41] LABS: HEMATOCRIT 36.1 % (42.0-52.0); HEMOGLOBIN 11.4 g/dl (13.5-17.5); MEAN CORPUSCULAR HEMOGLOBIN 31.3 pg (27.0-33.0); MEAN CORPUSCULAR HGB CONC 31.6 g/dl (32.0-36.5); MEAN CORPUSCULAR VOLUME 99.2 fl (80.0-96.0); PLATELET COUNT, AUTOMATED 164 10^3/uL (150-450); RED BLOOD COUNT 3.64 10^6/uL (4.30-6.10); WHITE BLOOD COUNT 4.8 10^3/uL (4.0-10.0)
[2020-03-23 11:12] LABS: BLOOD UREA NITROGEN 28 MG/DL (7-18); CALCIUM LEVEL 8.9 MG/DL (8.8-10.2); CARBON DIOXIDE LEVEL 33 MEQ/L (21-32); CHLORIDE LEVEL 103 MEQ/L (98-107); CREATININE FOR GFR 1.21 MG/DL (0.70-1.30); GLOMERULAR FILTRATION RATE > 60.0 (>42); GLUCOSE, FASTING 111 MG/DL (70-100); POTASSIUM SERUM 4.3 MEQ/L (3.5-5.1); SODIUM LEVEL 138 MEQ/L (136-145)
== END ==
LOC: M WUC 15:36
PROVIDERS: ATTEND Internal Medicine Cardiovascular Disease
DX: I48.0 Paroxysmal atrial fibrillation (principal); Z20.828 Contact with and (suspected) exposure to other viral communicable diseases
CPT/HCPCS: 36415; 80048; 85025; C9803; U0002

== ENCOUNTER → 2020-02-18 | Outpatient (CLI) | payer MEDICARE, OTHER | LOC: M LABSMTC 12:30 | PROVIDERS: ATTEND Internal Medicine Cardiovascular Disease | DX: Z11.59 Encounter for screening for other viral diseases (principal); Z20.828 Contact with and (suspected) exposure to other viral communicable diseases ==

== ENCOUNTER 2020-02-25 23:28 | Emergency (ER) | payer MEDICARE, OTHER ==
[2020-04-10 17:11] LABS: HEMATOCRIT 30.5 % (42.0-52.0); MEAN CORPUSCULAR HEMOGLOBIN 31.7 pg (27.0-33.0); MEAN CORPUSCULAR HGB CONC 32.8 g/dl (32.0-36.5); MEAN CORPUSCULAR VOLUME 96.8 fl (80.0-96.0); PLATELET COUNT, AUTOMATED 156 10^3/uL (150-450); RED BLOOD COUNT 3.15 10^6/uL (4.30-6.10); WHITE BLOOD COUNT 5.4 10^3/uL (4.0-10.0)
== END 2020-02-26 01:20 | disposition home or self-care (01) ==
LOC: M ED 23:28
DX: L76.34 Postprocedural seroma of skin and subcutaneous tissue following other procedure (principal); I48.91 Unspecified atrial fibrillation; Z79.899 Other long term (current) drug therapy; Z79.01 Long term (current) use of anticoagulants; Z79.1 Long term (current) use of non-steroidal anti-inflammatories (NSAID); I10 Essential (primary) hypertension; G47.33 Obstructive sleep apnea (adult) (pediatric)

== ENCOUNTER → 2020-03-25 | Outpatient (REF) | payer MEDICARE, OTHER | LOC: M LAB REF 11:34 | PROVIDERS: ATTEND Dermatology | DX: C44.310 Basal cell carcinoma of skin of unspecified parts of face (principal) ==

== ENCOUNTER → 2020-04-26 | Outpatient (CLI) | payer MEDICARE, OTHER ==
[2020-04-26 13:50] LABS: TOTAL PROTEIN 7.4 GM/DL (6.4-8.2)
[2020-04-26 14:01] LABS: FOLATE 10.3 NG/ML; VITAMIN B12 LEVEL 758 PG/ML
[2020-04-26 14:22] LABS: HEMOGLOBIN A1c 5.4 %
[2020-04-28 14:30] LABS: ALBUMIN 4.34 GM/DL (3.29-5.55); ALBUMIN % 58.6 % (55.8-66.1); ALPHA-1-GLOBULIN % 4.2 % (2.9-4.9); ALPHA-1-GLOBULINS 0.31 GM/DL (0.17-0.41); ALPHA-2-GLOBULINS 0.78 GM/DL (0.42-0.99); ALPHA-2-GLOBULINS % 10.6 % (7.1-11.8); BETA-1-GLOBULINS 0.38 GM/DL (0.28-0.60); BETA-1-GLOBULINS % 5.1 % (4.7-7.2); BETA-2-GLOBULINS 0.33 GM/DL (0.19-0.55); BETA-2-GLOBULINS % 4.5 % (3.2-6.5); GAMMA GLOBULINS 1.26 GM/DL (0.65-1.58)
[2020-04-28 15:18] LABS: IMMUNOTYPING SERUM IGG ABNORMAL (NORMAL); IMMUNOTYPING SERUM LAMBDA ABNORMAL (NORMAL)
[2020-04-29 13:07] LABS: COPPER PLASMA 123 ug/dL (72-166); LEAD BLOOD ADULT 2 ug/dL (0-4); MERCURY LEVEL 2.4 ug/L (0.0-14.9); VITAMIN E(ALPHA TOCOPHEROL) 9.2 mg/L (9.0-29.0); VITAMIN E(GAMMA TOCOPHEROL) 2.5 mg/L (0.5-4.9)
[2020-05-01 18:07] LABS: CERULOPLASMIN 24.6 mg/dL (16.0-31.0); VITAMIN B1 LEVEL WHOLE BLOOD 87.4 nmol/L (66.5-200.0); VITAMIN B6,PYRIDOXAL PHOSPHATE 7.5 ug/L (5.3-46.7)
== END ==
LOC: M WUC 08:50
PROVIDERS: ATTEND Psychiatry & Neurology Neurology
DX: E83.01 Wilson's disease (principal); E11.9 Type 2 diabetes mellitus without complications; G62.9 Polyneuropathy, unspecified; E53.9 Vitamin B deficiency, unspecified; J44.9 Chronic obstructive pulmonary disease, unspecified

== ENCOUNTER → 2020-06-27 | Outpatient (CLI) | payer MEDICARE, OTHER ==
[~2020-06-27] MED LIST changes: +FISH1000 PO; +MAPA500T2 PO; +MICA80TA PO; +NEUR800T PO; +OMEG10002 PO; +SOTA80TA32 PO; +VITA50005 PO; +VOLT1GEL15 TOP; +XARE20TA PO
--- NOTE | 2020-06-27 10:50 | REP ---
INDICATION: ABNORMAL SPEP. COMPARISON: None. TECHNIQUE: Multiple views of the axial and appendicular skeleton. FINDINGS: There is a single round lucency in the calvarium posteriorly measuring approximately 7 mm. There are multiple bridging osteophytes anteriorly in the cervical spine, thoracic spine and lumbar spine without associated disc space narrowing. This could represent multi-level mild degenerative disc disease, diffuse idiopathic skeletal hyperostosis or combination. Vertebral body heights, disc spaces and alignment are otherwise unremarkable. No vertebral was disease are identified. Bilateral humeri: There are no lucencies. Mineralization is normal. Bilateral femurs: There are no lucencies. Mineralization is normal. There is a femorotibial joint space narrowing bilaterally compatible with osteoarthritis. A Niya vena cava filter is incidentally identified. Pelvis and hips: There are no lucencies. Mineralization is normal. There is left hip joint space narrowing and cortical eburnation compatible with osteoarthritis. Sacroiliac articulations are unremarkable. IMPRESSION: Single calvarial lucency posteriorly. Multilevel mild degenerative disc disease versus diffuse idiopathic skeletal hyperostosis versus combination. Left hip osteoarthritis. Bilateral knee osteoarthritis. <Electronically signed by Sukhi Bauer > 06/27/20 [id number]
== END ==
LOC: M RAD 08:42
PROVIDERS: ATTEND Internal Medicine Hematology & Oncology
DX: R77.9 Abnormality of plasma protein, unspecified (principal)

== ENCOUNTER 2020-08-29 09:57 | Inpatient (IN) | payer MEDICARE, OTHER ==
[~2020-08-29] VITALS: Ht 182.9 cm; Wt 135.5 kg
[~2020-08-29 09:57] MED LIST changes: +GABA-282; +GABA-282 PO; -GABA-843; -GABA-843 PO; +HYDR-3363 PO
[2020-08-29 10:29] LABS: BASO % 0.6 % (0.0-1.0); EOS # 0.2 10^3/uL (0.0-0.5); EOS % 2.4 % (0.0-3.0); HEMATOCRIT 29.8 % (42.0-52.0); HEMOGLOBIN 9.4 g/dl (13.5-17.5); LYMPH # 0.8 10^3/uL (1.5-5.0); LYMPH % 13.4 % (24.0-44.0); MEAN CORPUSCULAR HEMOGLOBIN 31.1 pg (27.0-33.0); MEAN CORPUSCULAR HGB CONC 31.5 g/dl (32.0-36.5); MEAN CORPUSCULAR VOLUME 98.7 fl (80.0-96.0); MONO # 0.7 10^3/uL (0.0-0.8); MONO % 11.3 % (0.0-5.0); NEUTROPHILS # 4.4 10^3/uL (1.5-8.5); NEUTROPHILS % 70.7 % (36.0-66.0); PLATELET COUNT, AUTOMATED 227 10^3/uL (150-450); RED BLOOD COUNT 3.02 10^6/uL (4.30-6.10); WHITE BLOOD COUNT 6.3 10^3/uL (4.0-10.0)
[2020-08-29 10:38] LABS: INR 1.05; PROTHROMBIN TIME 13.9 SECONDS (12.5-14.3)
[2020-08-29 11:06] LABS: ALBUMIN 3.3 GM/DL (3.2-5.2); ALT/SGPT 29 U/L (12-78); BILIRUBIN,DIRECT 0.2 MG/DL (0.0-0.2); BILIRUBIN,TOTAL 0.5 MG/DL (0.2-1.0); BLOOD UREA NITROGEN 21 MG/DL (7-18); CALCIUM LEVEL 8.9 MG/DL (8.8-10.2); CARBON DIOXIDE LEVEL 27 MEQ/L (21-32); CHLORIDE LEVEL 107 MEQ/L (98-107); CPK CREATINE PHOSPHOKINASE 79 U/L (39-308); CREATININE FOR GFR 1.16 MG/DL (0.70-1.30); GLOMERULAR FILTRATION RATE > 60.0 (>42); GLUCOSE, FASTING 137 MG/DL (70-100); MB/CK RELATIVE INDEX 1.27 (< OR =4); NT-PRO BNP 1413 PG/ML (<125); POTASSIUM SERUM 3.5 MEQ/L (3.5-5.1); SODIUM LEVEL 143 MEQ/L (136-145); THYROXINE (T4) 8.8 UG/DL (4.5-12.0); TOTAL PROTEIN 7.2 GM/DL (6.4-8.2); TROPONIN I < 0.02 NG/ML (< 0.10)
--- NOTE | 2020-08-29 11:14 | REP ---
INDICATION: DYSPNEA/COUGH. COMPARISON: Comparison chest x-ray November 13, 2016. TECHNIQUE: Portable upright AP chest radiograph. FINDINGS: A bipolar pacemaker is seen in the right heart view of the left side. There is a bandlike area of linear fibrosis in the left base which is unchanged from the 2017 prior study. The pleural angles are sharp. Heart size is unchanged. Mildly prominent. There is infiltrate in the right upper perihilar region consistent with pneumonitis. Lung aguilar are otherwise clear. IMPRESSION: Right upper lobe infiltrate consistent with pneumonitis. Bipolar pacemaker. Linear fibrosis left base.. <Electronically signed by Huy Diez > 08/29/20 [id number]
[2020-08-29] MEDS ORDERED: FUROSEMIDE 100MG/10ML VIAL (J1940) IV ONE (12:45)
[2020-08-29 13:56] LABS: RSV AMPLIFICATION NEGATIVE (NEGATIVE)
[2020-08-29] MEDS ORDERED: SOTA120T PO (14:33)
[2020-08-29] MEDS ORDERED: VITA100018 PO (14:33)
[2020-08-29] MEDS: COMBIVENT RESPIMAT 100-20MCG INHALER 4GM INH SCH ×3 (14:36→14:55)
[2020-08-29] MEDS ORDERED: ISOVUE-370 76% 100ML VIAL As Ordered ONE (14:48)
[2020-08-29] MEDS ORDERED: FLUTICASONE PROP 0.05% NASAL SPRAY 16 GM (FLONASE) PRN (15:00)
[2020-08-29] MEDS ORDERED: ACETAMINOPHEN 500 MG TAB PO PRN (15:00)
[2020-08-29] MEDS ORDERED: metOLazone 5 MG TAB PO ONE (15:00)
[2020-08-29] MEDS ORDERED: BUMETANIDE 1 MG/4 ML INJ (S0171) IV ONE (15:30)
[2020-08-29 15:32] LABS: ABG BASE EXCESS 4.4 (-2.0-2.0); ABG HCO3 28.1 MEQ/L (22.0-26.0); ABG O2 SATURATION 94.7 % (95.0-99.0); ABG PARTIAL PRESSURE CO2 38.4 mmHg (35.0-45.0); ABG PARTIAL PRESSURE O2 71.5 mmHg (75.0-100.0); ABG STANDARD HCO3 28.4 MEQ/L (22.0-26.0); ABG TOTAL CO2 29.3 MEQ/L (23.0-31.0); ABG pH (ARTERIAL) 7.482 UNITS (7.350-7.450)
[2020-08-29 15:52] LABS: FERRITIN 310 NG/ML (26-388); IRON (FE) 45 UG/DL (65-175)
--- NOTE | 2020-08-29 16:07 | REP ---
INDICATION: sob r/o pe. COMPARISON: Comparison CT study 30 April 2017.. TECHNIQUE: Contrast dose: 75 ML of Isovue [address] technique: Helical scanning is acquired and overlapping 1.5 mm and contiguous 3 mm axial images are reformatted. In addition, maximum intensity projection and multiplanar re-formation images are generated in sagittal and coronal imaging projections. FINDINGS: There is good opacification in the pulmonary arterial tree. There is no evidence of vessel cut off or filling defect to suggest pulmonary embolus. Homogeneous opacity is seen in the thoracic aorta. There is no evidence of aneurysm or dissection. Lung window settings demonstrate an alveolar infiltrate or edema pattern in a perihilar distribution most prominently affecting the right upper lobe and to a lesser extent left upper lobe and both lower lobes. This is similar but more pronounced to the pattern seen on the 2017 study. It is most pronounced in the right upper lobe where there is more confluent alveolar opacity and air bronchograms. This corresponds with the radiographic findings. There is a small amount of right pleural effusion. Four-chamber cardiac enlargement is observed with pacemaker in place. No hilar or mediastinal mass or adenopathy is observed. In the upper abdomen, there is mild diffuse fatty infiltration of the liver. A small cyst is seen in the dome of the liver. this is unchanged. Subtle stable fullness is noted in the left adrenal gland also unchanged. There is some left coronary artery vascular calcification. There is a linear bandlike area of fibrosis in the left lower lobe which is unchanged from the 2017 study. 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 IMPRESSION: No CT evidence of pulmonary embolus. Diffuse alveolar edema pattern in the perihilar regions bilaterally, most pronounced in the right upper lobe. Small right pleural effusion. Cardiomegaly. CHF pattern. <Electronically signed by Huy Diez > 08/29/20 [id number]
[2020-08-29 16:50] VITALS: BP 144/83
[2020-08-29] MEDS ORDERED: SLF 3 ML SYR IV PRN (17:00)
[2020-08-29] MEDS: SUCRALFATE 1 GM TAB PO SCH ×2 (17:53→20:20)
[2020-08-29] MEDS ORDERED: RIVAROXABAN 20 MG TAB (XARELTO) PO SCH (18:00)
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
[2020-08-29 18:50] LABS: CK-MB VALUE MASS < 1.0 NG/ML (<3.6); CPK CREATINE PHOSPHOKINASE 78 U/L (39-308); MB/CK RELATIVE INDEX 1.28 (< OR =4); TROPONIN I < 0.02 NG/ML (< 0.10)
[2020-08-29 20:00] VITALS: BP 138/74
[2020-08-29] MEDS ORDERED: GABAPENTIN 400MG CAP PO ONE (20:15)
[2020-08-29] MEDS: SOTALOL 40MG PER 1/2 TABLET PO SCH (20:19)
[2020-08-29] MEDS: PANTOPRAZOLE 40MG TAB (PROTONIX) PO SCH (20:20)
[2020-08-29] MEDS ORDERED: PRAVASTATIN 20 MG TAB PO SCH (21:00)
[2020-08-29] MEDS ORDERED: DOXAZOSIN MESYLATE 1 MG TAB PO SCH (21:00)
[2020-08-29] MEDS ORDERED: allopurinoL 300 MG TAB PO SCH (21:00)
[2020-08-29] MEDS: SLF 3 ML SYR IV SCH (21:59)
[2020-08-30] VITALS: BP 106/58
[2020-08-30 00:56] LABS: CK-MB VALUE MASS < 1.0 NG/ML (<3.6); CPK CREATINE PHOSPHOKINASE 73 U/L (39-308); MB/CK RELATIVE INDEX 1.37 (< OR =4); TROPONIN I < 0.02 NG/ML (< 0.10)
[2020-08-30 04:00] VITALS: BP 131/62
[2020-08-30 05:33] LABS: HEMOGLOBIN 9.9 g/dl (13.5-17.5); MEAN CORPUSCULAR HEMOGLOBIN 31.4 pg (27.0-33.0); MEAN CORPUSCULAR HGB CONC 31.9 g/dl (32.0-36.5); MEAN CORPUSCULAR VOLUME 98.4 fl (80.0-96.0); PLATELET COUNT, AUTOMATED 219 10^3/uL (150-450); RED BLOOD COUNT 3.15 10^6/uL (4.30-6.10); WHITE BLOOD COUNT 5.7 10^3/uL (4.0-10.0)
[2020-08-30 05:57] LABS: BLOOD UREA NITROGEN 22 MG/DL (7-18); CALCIUM LEVEL 8.4 MG/DL (8.8-10.2); CARBON DIOXIDE LEVEL 31 MEQ/L (21-32); CHLORIDE LEVEL 105 MEQ/L (98-107); CREATININE FOR GFR 1.13 MG/DL (0.70-1.30); GLOMERULAR FILTRATION RATE > 60.0 (>42); GLUCOSE, FASTING 111 MG/DL (70-100); SODIUM LEVEL 144 MEQ/L (136-145)
[2020-08-30] MEDS: FUROSEMIDE 40MG/4ML VIAL (J1940) IV SCH ×2 (06:08→11:52)
[2020-08-30] MEDS ORDERED: KCL 10MEQ/100ML SWI (KRUN) 10 MEQ in IV 1 EA IV ONE (06:15)
[2020-08-30] MEDS ORDERED: POTASSIUM CHLORIDE 10 MEQ SR TABLET PO ONE (06:15)
[2020-08-30] MEDS: SLF 3 ML SYR IV SCH ×2 (06:26→14:02)
[2020-08-30 06:37] LABS: PHOSPHORUS LEVEL 3.8 MG/DL (2.5-4.9)
[2020-08-30 08:00] VITALS: BP 137/63
[2020-08-30 08:14] VITALS: BP 137/65
[2020-08-30] MEDS: SUCRALFATE 1 GM TAB PO SCH ×2 (08:14→11:52)
[2020-08-30] MEDS: PANTOPRAZOLE 40MG TAB (PROTONIX) PO SCH (08:14)
[2020-08-30] MEDS: SOTALOL 40MG PER 1/2 TABLET PO SCH (08:14)
--- NOTE | 2020-08-30 08:48 | ECGEPIP ---
[facility] - ED Test Date: 2020-08-29 Pat Name: SEA CARLSON Department: Room: - Gender: Male Medical Associate: : 1945 Requested By: ASHWINI [place] Order Number: [id number] Reading MD: Erica Garza Measurements Intervals [place] Rate: 70 P: 94 NM: 271 QRS: 110 QRSD: 185 T: -8 QT: 492 QTc: 531 Interpretive Statements ELECTRONIC ATRIAL PACEMAKER ELECTRONIC VENTRICULAR PACEMAKER ABNORMAL RHYTHM ECG PRIOR NOT PACED 04/30/17 Electronically Signed on 08-30-2020 8:47:39 EST by Erica Garza
[2020-08-30] MEDS ORDERED: CYANOCOBALAMIN 500 MCG TAB PO SCH (09:00)
[2020-08-30] MEDS ORDERED: K-TA10TA2 PO (11:43)
[2020-08-30 11:59] VITALS: BP 134/67
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
--- NOTE | 2020-08-31 14:47 | ECHO ---
DATE OF PROCEDURE: 08/30/2020 Age: 75 Gender: Male Height: 183 cm Weight: 138 kg REFERRING PHYSICIAN: Franca Ayala MD. INDICATION: Congestive heart failure. MEASUREMENTS: IVS 1.3 cm LV 5.1 cm LVPW 0.9 cm LA 5.0 cm Aorta 3.5 cm RV 4.4 cm IVC 2.0 Mitral E wave velocity 113 A wave 50 E prime septal 8.1 E prime lateral 8.7 FINDINGS: This study is of acceptable technical quality. There is underlying sinus rhythm with wide QRS complex, potentially paced rhythm. Left ventricle is normal size. Mild left ventricular hypertrophy is present. Overall preserved LV systolic function. Based on some limitations of the imaging, I cannot completely rule out subtle wall motion abnormalities. Overall estimated LVEF around 65 to 70%. Right ventricle appears normal size and contractility. Both atria appear enlarged. Aortic valve has three cusps. It is sclerotic, and there is some restriction of cusp mobility. Mitral, tricuspid, and pulmonic valves appear normal. No pericardial effusion is noted. Inferior vena cava is upper limits of normal size, and there is reduced collapse with inspiration indicative of elevated central venous pressure. Aortic root is normal. Aortic arch and abdominal aorta were not well seen. There is an echo artifact apparent in the right ventricle and right atrium most likely representing pacemaker electrodes. Doppler interrogation reveals mild aortic stenosis (mean gradient 16, peak gradient 24) and mild insufficiency. There is trace mitral insufficiency. Tricuspid and pulmonic valves are functionally competent. Mitral inflow pattern and tissue Doppler imaging of mitral annulus revealed probably grade 2 diastolic dysfunction even though tissue Doppler velocities of mitral annulus are relatively preserved. CONCLUSIONS: 1. Study is of acceptable technical quality, underlying sinus rhythm with wide QRS complex, potentially paced rhythm. 2. Normal LV size with mild LVH and preserved LV systolic function, estimated LVEF 65 to 70%. Likely grade 2 diastolic dysfunction. 3. Aortic sclerosis resulting in mild stenosis and mild insufficiency. 4. Trace mitral insufficiency. 5. At least mildly elevated central venous pressure. 6. Unable to estimate pulmonary artery pressure. MTDD
== END 2020-08-30 14:55 | disposition home or self-care (01) | DRG 292 ==
LOC: M ED 09:57 → M ED INP 14:35 → M PCU 16:57
PROVIDERS: ADMIT General Practice; ATTEND Internal Medicine
DX: I11.0 Hypertensive heart disease with heart failure (principal); I48.20 Chronic atrial fibrillation, unspecified; Z68.41 Body mass index [BMI] 40.0-44.9, adult; I50.33 Acute on chronic diastolic (congestive) heart failure; Z95.0 Presence of cardiac pacemaker; G47.33 Obstructive sleep apnea (adult) (pediatric); G62.9 Polyneuropathy, unspecified; M10.9 Gout, unspecified; E78.5 Hyperlipidemia, unspecified; Z87.891 Personal history of nicotine dependence; D51.3 Other dietary vitamin B12 deficiency anemia; D47.2 Monoclonal gammopathy; E66.9 Obesity, unspecified; Z20.822 Contact with and (suspected) exposure to COVID-19; Z79.01 Long term (current) use of anticoagulants; Z79.899 Other long term (current) drug therapy; Z91.11 Patient's noncompliance with dietary regimen

== ENCOUNTER → 2020-10-14 | Outpatient (CLI) | payer MEDICARE, OTHER ==
[~2020-10-14] MED LIST changes: +K-TA10TA2 PO; +SOTA120T PO; +VITA100018 PO
[2020-10-14 15:48] LABS: BASO % 0.2 % (0.0-1.0); HEMATOCRIT 33.9 % (42.0-52.0); HEMOGLOBIN 10.9 g/dl (13.5-17.5); LYMPH # 0.8 10^3/uL (1.5-5.0); LYMPH % 6.8 % (24.0-44.0); MEAN CORPUSCULAR HEMOGLOBIN 31.8 pg (27.0-33.0); MEAN CORPUSCULAR HGB CONC 32.2 g/dl (32.0-36.5); MEAN CORPUSCULAR VOLUME 98.8 fl (80.0-96.0); MONO # 0.9 10^3/uL (0.0-0.8); MONO % 7.4 % (2.0-8.0); NEUTROPHILS % 84.9 % (36.0-66.0); PLATELET COUNT, AUTOMATED 223 10^3/uL (150-450); RED BLOOD COUNT 3.43 10^6/uL (4.30-6.10); WHITE BLOOD COUNT 11.8 10^3/uL (4.0-10.0)
[2020-10-14 17:11] LABS: ALT/SGPT 26 U/L (12-78); BILIRUBIN,TOTAL 0.2 MG/DL (0.2-1.0); BLOOD UREA NITROGEN 38 MG/DL (7-18); CALCIUM LEVEL 8.9 MG/DL (8.8-10.2); CARBON DIOXIDE LEVEL 25 MEQ/L (21-32); CHLORIDE LEVEL 106 MEQ/L (98-107); GLOMERULAR FILTRATION RATE > 60.0 (>42); GLUCOSE, FASTING 221 MG/DL (70-100); IMMUNOGLOBULIN A 79.7 MG/DL (70-400); IMMUNOGLOBULIN G 1560 MG/DL (681-1648); IMMUNOGLOBULIN M 21.6 MG/DL (40-230); POTASSIUM SERUM 4.1 MEQ/L (3.5-5.1); SODIUM LEVEL 139 MEQ/L (136-145); TOTAL PROTEIN 7.7 GM/DL (6.4-8.2)
[2020-10-18 18:07] LABS: BETA 2 MICROGLOBULIN 2.5 mg/L (0.6-2.4); FREE KAPPA LIGHT CHAINS SERUM 5.9 mg/L (3.3-19.4); FREE LAMBDA LIGHT CHAINS SERUM 13.9 mg/L (5.7-26.3); KAPPA/LAMBDA RATIO SERUM 0.42 (0.26-1.65)
[2020-10-20 08:13] LABS: ALBUMIN 4.34 GM/DL (3.29-5.55); ALBUMIN % 56.4 % (55.8-66.1); ALPHA-1-GLOBULIN % 4.2 % (2.9-4.9); ALPHA-1-GLOBULINS 0.32 GM/DL (0.17-0.41); ALPHA-2-GLOBULINS 0.85 GM/DL (0.42-0.99); ALPHA-2-GLOBULINS % 11.1 % (7.1-11.8); BETA-1-GLOBULINS 0.42 GM/DL (0.28-0.60); BETA-1-GLOBULINS % 5.5 % (4.7-7.2); BETA-2-GLOBULINS 0.35 GM/DL (0.19-0.55); BETA-2-GLOBULINS % 4.6 % (3.2-6.5); GAMMA GLOBULIN % 18.2 % (11.1-18.8)
[2020-10-20 08:22] LABS: IMMUNOTYPING SERUM IGG ABNORMAL (NORMAL); IMMUNOTYPING SERUM LAMBDA ABNORMAL (NORMAL)
== END ==
LOC: M WUC 14:44
PROVIDERS: ATTEND Internal Medicine Hematology & Oncology
DX: E88.09 Other disorders of plasma-protein metabolism, not elsewhere classified (principal); I50.9 Heart failure, unspecified; I48.91 Unspecified atrial fibrillation

== ENCOUNTER → 2020-10-14 | Outpatient (CLI) | payer MEDICARE, OTHER ==
[2020-10-14 16:05] LABS: BLOOD UREA NITROGEN 37 MG/DL (7-18); CALCIUM LEVEL 8.7 MG/DL (8.8-10.2); CARBON DIOXIDE LEVEL 25 MEQ/L (21-32); CHLORIDE LEVEL 106 MEQ/L (98-107); GLOMERULAR FILTRATION RATE > 60.0 (>42); GLUCOSE, FASTING 208 MG/DL (70-100); MAGNESIUM LEVEL 2.5 MG/DL (1.8-2.4); POTASSIUM SERUM 4.1 MEQ/L (3.5-5.1); SODIUM LEVEL 139 MEQ/L (136-145)
== END ==
LOC: M WUC 14:52
PROVIDERS: ATTEND Internal Medicine Cardiovascular Disease
DX: I50.9 Heart failure, unspecified (principal); I48.91 Unspecified atrial fibrillation

== ENCOUNTER → 2020-10-17 | Outpatient (REF) | payer MEDICARE, OTHER | LOC: M WUC 10:51 | PROVIDERS: ATTEND Internal Medicine Hematology & Oncology | DX: E88.09 Other disorders of plasma-protein metabolism, not elsewhere classified (principal) ==

== ENCOUNTER → 2020-11-07 | Outpatient (CLI) | payer MEDICARE, OTHER ==
[~2020-11-07] MED LIST changes: +COVI30VI IM; +MAPA500C PO
[2020-11-07 11:56] LABS: CALCIUM LEVEL 9.3 MG/DL (8.8-10.2); CREATININE FOR GFR 1.34 MG/DL (0.70-1.30); GLOMERULAR FILTRATION RATE 55.5 (>42); MAGNESIUM LEVEL 2.4 MG/DL (1.8-2.4); POTASSIUM SERUM 3.7 MEQ/L (3.5-5.1)
== END ==
LOC: M WUC 08:21
PROVIDERS: ATTEND Internal Medicine Cardiovascular Disease
DX: I50.32 Chronic diastolic (congestive) heart failure (principal); I27.24 Chronic thromboembolic pulmonary hypertension

== ENCOUNTER → 2020-12-21 | Outpatient (CLI) | payer MEDICARE, OTHER ==
[2020-12-21 13:09] LABS: BASO % 0.7 % (0.0-1.0); EOS # 0.1 10^3/uL (0.0-0.5); EOS % 2.9 % (0.0-3.0); HEMATOCRIT 34.3 % (42.0-52.0); HEMOGLOBIN 10.8 g/dl (13.5-17.5); LYMPH % 22.1 % (24.0-44.0); MEAN CORPUSCULAR HGB CONC 31.5 g/dl (32.0-36.5); MEAN CORPUSCULAR VOLUME 101.5 fl (80.0-96.0); MONO # 0.6 10^3/uL (0.0-0.8); MONO % 12.3 % (2.0-8.0); NEUTROPHILS # 2.8 10^3/uL (1.5-8.5); NEUTROPHILS % 61.8 % (36.0-66.0); PLATELET COUNT, AUTOMATED 163 10^3/uL (150-450); RED BLOOD COUNT 3.38 10^6/uL (4.30-6.10); WHITE BLOOD COUNT 4.5 10^3/uL (4.0-10.0)
[2020-12-21 13:46] LABS: ALBUMIN 3.9 GM/DL (3.2-5.2); BILIRUBIN,TOTAL 0.6 MG/DL (0.2-1.0); CALCIUM LEVEL 8.9 MG/DL (8.8-10.2); CHOLESTEROL RISK RATIO 3.173 (<5); CREATININE FOR GFR 1.32 MG/DL (0.70-1.30); GLOMERULAR FILTRATION RATE 56.4 (>42); MAGNESIUM LEVEL 2.7 MG/DL (1.8-2.4); POTASSIUM SERUM 4.3 MEQ/L (3.5-5.1); TOTAL PROTEIN 7.5 GM/DL (6.4-8.2)
[2020-12-21 14:01] LABS: HEMOGLOBIN A1c 5.9 %
== END ==
LOC: M WUC 09:28
PROVIDERS: ATTEND Family Medicine
DX: I10 Essential (primary) hypertension (principal); R73.01 Impaired fasting glucose

== ENCOUNTER → 2021-02-10 | Outpatient (CLI) | payer MEDICARE, OTHER ==
[~2021-02-10] MED LIST changes: +DICL100G11 TP; +ERGO500029 PO; -VITA50005 PO
[2021-02-10 16:16] LABS: BASO % 0.7 % (0.0-1.0); EOS # 0.2 10^3/uL (0.0-0.5); EOS % 3.5 % (0.0-3.0); HEMATOCRIT 32.1 % (42.0-52.0); HEMOGLOBIN 10.1 g/dl (13.5-17.5); LYMPH # 0.9 10^3/uL (1.5-5.0); LYMPH % 20.6 % (24.0-44.0); MEAN CORPUSCULAR HEMOGLOBIN 31.9 pg (27.0-33.0); MEAN CORPUSCULAR HGB CONC 31.5 g/dl (32.0-36.5); MEAN CORPUSCULAR VOLUME 101.3 fl (80.0-96.0); MONO # 0.6 10^3/uL (0.0-0.8); MONO % 12.6 % (2.0-8.0); NEUTROPHILS # 2.8 10^3/uL (1.5-8.5); NEUTROPHILS % 62.4 % (36.0-66.0); PLATELET COUNT, AUTOMATED 178 10^3/uL (150-450); RED BLOOD COUNT 3.17 10^6/uL (4.30-6.10); WHITE BLOOD COUNT 4.5 10^3/uL (4.0-10.0)
[2021-02-10 16:36] LABS: ALBUMIN 3.7 GM/DL (3.2-5.2); BILIRUBIN,TOTAL 0.5 MG/DL (0.2-1.0); CALCIUM LEVEL 8.6 MG/DL (8.8-10.2); CREATININE FOR GFR 1.44 MG/DL (0.70-1.30); GLOMERULAR FILTRATION RATE 50.9 (>42); POTASSIUM SERUM 4.6 MEQ/L (3.5-5.1); TOTAL PROTEIN 7.2 GM/DL (6.4-8.2)
== END ==
LOC: M WUC 09:45
PROVIDERS: ATTEND Internal Medicine Hematology & Oncology
DX: D64.9 Anemia, unspecified (principal)

== ENCOUNTER → 2021-02-10 | Outpatient (CLI) | payer MEDICARE, OTHER ==
[2021-02-10 16:34] LABS: RHEUMATOID FACTOR QUANT < 10.0 IU/ML (<15.0)
[2021-02-10 16:44] LABS: TOTAL 25(OH) VITAMIN D 80.7 NG/ML (30.0-100.0)
[2021-02-13 18:07] LABS: ANTINUCLEAR ANTIBODIES DIRECT Negative (Negative); Lyme Disease IgG/IgM Antibodie <0.91 ISR (0.00-0.90); Lyme Disease IgM Ab Quantitati <0.80 index (0.00-0.79); SJOGREN'S ANTI SS-A <0.2 AI (0.0-0.9); SJOGREN'S ANTI SS-B 0.2 AI (0.0-0.9)
== END ==
LOC: M WUC 09:41
PROVIDERS: ATTEND Family Medicine
DX: M12.9 Arthropathy, unspecified (principal); E55.9 Vitamin D deficiency, unspecified; D64.9 Anemia, unspecified

== ENCOUNTER → 2021-10-09 | Outpatient (CLI) | payer MEDICARE, OTHER ==
[~2021-10-09] MED LIST changes: +BYDU2INJ7; -MOME50SP; +NASO50SP3
[2021-10-09 13:18] LABS: BASO % 0.7 % (0.0-1.0); EOS # 0.3 10^3/uL (0.0-0.5); EOS % 4.9 % (0.0-3.0); HEMATOCRIT 33.3 % (42.0-52.0); HEMOGLOBIN 10.6 g/dl (13.5-17.5); LYMPH # 1.2 10^3/uL (1.5-5.0); LYMPH % 21.3 % (24.0-44.0); MEAN CORPUSCULAR HEMOGLOBIN 31.5 pg (27.0-33.0); MEAN CORPUSCULAR HGB CONC 31.8 g/dl (32.0-36.5); MEAN CORPUSCULAR VOLUME 98.8 fl (80.0-96.0); MONO # 0.6 10^3/uL (0.0-0.8); MONO % 10.7 % (2.0-8.0); NEUTROPHILS # 3.5 10^3/uL (1.5-8.5); NEUTROPHILS % 61.9 % (36.0-66.0); PLATELET COUNT, AUTOMATED 189 10^3/uL (150-450); RED BLOOD COUNT 3.37 10^6/uL (4.30-6.10); WHITE BLOOD COUNT 5.7 10^3/uL (4.0-10.0)
[2021-10-09 13:26] LABS: ALBUMIN 3.9 GM/DL (3.2-5.2)
== END ==
LOC: M WUC 10:50
PROVIDERS: ATTEND Orthopaedic Surgery
DX: M17.10 Unilateral primary osteoarthritis, unspecified knee (principal); M25.562 Pain in left knee; Z01.818 Encounter for other preprocedural examination

== ENCOUNTER → 2021-12-20 | Outpatient (CLI) | payer MEDICARE, OTHER ==
[2021-12-20 13:08] LABS: BASO % 0.6 % (0.0-1.0); EOS # 0.2 10^3/uL (0.0-0.5); HEMATOCRIT 30.9 % (42.0-52.0); HEMOGLOBIN 9.6 g/dl (13.5-17.5); LYMPH # 1.5 10^3/uL (1.5-5.0); LYMPH % 27.3 % (24.0-44.0); MEAN CORPUSCULAR HEMOGLOBIN 30.9 pg (27.0-33.0); MEAN CORPUSCULAR HGB CONC 31.1 g/dl (32.0-36.5); MEAN CORPUSCULAR VOLUME 99.4 fl (80.0-96.0); MONO # 0.6 10^3/uL (0.0-0.8); MONO % 10.8 % (2.0-8.0); NEUTROPHILS # 3.1 10^3/uL (1.5-8.5); NEUTROPHILS % 58.1 % (36.0-66.0); PLATELET COUNT, AUTOMATED 203 10^3/uL (150-450); RED BLOOD COUNT 3.11 10^6/uL (4.30-6.10); WHITE BLOOD COUNT 5.4 10^3/uL (4.0-10.0)
[2021-12-20 13:16] LABS: ALBUMIN 3.6 GM/DL (3.2-5.2); ALT/SGPT 18 U/L (12-78); BILIRUBIN,TOTAL 0.6 MG/DL (0.2-1.0); BLOOD UREA NITROGEN 27 MG/DL (7-18); CALCIUM LEVEL 8.2 MG/DL (8.8-10.2); CARBON DIOXIDE LEVEL 29 MEQ/L (21-32); CHLORIDE LEVEL 108 MEQ/L (98-107); CHOLESTEROL LEVEL 127 MG/DL (<200); CHOLESTEROL RISK RATIO 2.953 (<5); CREATININE FOR GFR 1.03 MG/DL (0.70-1.30); GLOMERULAR FILTRATION RATE > 60.0 (>42); GLUCOSE, FASTING 112 MG/DL (70-100); HDL CHOLESTEROL 43 MG/DL (>40); LDL CHOLESTEROL 64 MG/DL (<100); NON-HDL-C 84 MG/DL; POTASSIUM SERUM 3.6 MEQ/L (3.5-5.1); SODIUM LEVEL 139 MEQ/L (136-145); TOTAL PROTEIN 7.5 GM/DL (6.4-8.2); TRIGLYCERIDES LEVEL 101 MG/DL (<150)
[2021-12-20 13:34] LABS: HEMOGLOBIN A1c 5.4 %
== END ==
LOC: M WUC 08:51
PROVIDERS: ATTEND Family Medicine
DX: I10 Essential (primary) hypertension (principal); R73.01 Impaired fasting glucose

== ENCOUNTER → 2022-01-09 | Outpatient (CLI) | payer MEDICARE, OTHER ==
[2022-01-09 12:34] LABS: BASO % 0.4 % (0.0-1.0); EOS # 0.2 10^3/uL (0.0-0.5); EOS % 3.4 % (0.0-3.0); HEMATOCRIT 33.5 % (42.0-52.0); HEMOGLOBIN 10.3 g/dl (13.5-17.5); LYMPH # 1.5 10^3/uL (1.5-5.0); LYMPH % 29.2 % (24.0-44.0); MEAN CORPUSCULAR HEMOGLOBIN 30.8 pg (27.0-33.0); MEAN CORPUSCULAR HGB CONC 30.7 g/dl (32.0-36.5); MEAN CORPUSCULAR VOLUME 100.3 fl (80.0-96.0); MONO # 0.4 10^3/uL (0.0-0.8); MONO % 8.2 % (2.0-8.0); NEUTROPHILS # 2.9 10^3/uL (1.5-8.5); NEUTROPHILS % 58.2 % (36.0-66.0); PLATELET COUNT, AUTOMATED 212 10^3/uL (150-450); RED BLOOD COUNT 3.34 10^6/uL (4.30-6.10)
[2022-01-09 13:29] LABS: ALBUMIN 3.6 GM/DL (3.2-5.2); PERCENT SATURATION 18.8 % (19.7-50.0)
== END ==
LOC: M WUC 10:23
PROVIDERS: ATTEND Orthopaedic Surgery
DX: Z01.818 Encounter for other preprocedural examination (principal); M17.11 Unilateral primary osteoarthritis, right knee; M25.561 Pain in right knee

== ENCOUNTER → 2022-02-19 | Outpatient (CLI) | payer MEDICARE, OTHER | LOC: M RAD 16:08 | PROVIDERS: ATTEND Orthopaedic Surgery | DX: M79.89 Other specified soft tissue disorders (principal); M79.604 Pain in right leg; M79.605 Pain in left leg ==

== ENCOUNTER → 2022-05-24 | Outpatient (CLI) | payer MEDICARE, OTHER ==
[~2022-05-24] MED LIST changes: +TOPR50TA PO
[2022-05-24 17:05] LABS: HEMOGLOBIN 10.4 g/dl (13.5-17.5); MEAN CORPUSCULAR HEMOGLOBIN 30.1 pg (27.0-33.0); MEAN CORPUSCULAR HGB CONC 30.6 g/dl (32.0-36.5); MEAN CORPUSCULAR VOLUME 98.6 fl (80.0-96.0); PLATELET COUNT, AUTOMATED 194 10^3/uL (150-450); RED BLOOD COUNT 3.45 10^6/uL (4.30-6.10); WHITE BLOOD COUNT 5.6 10^3/uL (4.0-10.0)
[2022-05-24 17:49] LABS: BLOOD UREA NITROGEN 21 MG/DL (7-18); CALCIUM LEVEL 8.8 MG/DL (8.8-10.2); CARBON DIOXIDE LEVEL 29 MEQ/L (21-32); CHLORIDE LEVEL 105 MEQ/L (98-107); CREATININE FOR GFR 1.05 MG/DL (0.70-1.30); GLOMERULAR FILTRATION RATE > 60.0 (>42); GLUCOSE, FASTING 131 MG/DL (70-100); POTASSIUM SERUM 3.7 MEQ/L (3.5-5.1); SODIUM LEVEL 139 MEQ/L (136-145)
== END ==
LOC: M WUC 14:52
PROVIDERS: ATTEND Internal Medicine Cardiovascular Disease
DX: I48.0 Paroxysmal atrial fibrillation (principal)

== ENCOUNTER → 2022-08-14 | Outpatient (CLI) | payer MEDICARE, OTHER ==
[2022-08-14 17:38] LABS: MAGNESIUM LEVEL 2.2 MG/DL (1.8-2.4)
[2022-08-14 17:40] LABS: BLOOD UREA NITROGEN 26 MG/DL (9-23); CALCIUM LEVEL 9.6 MG/DL (8.3-10.6); CARBON DIOXIDE LEVEL 30 MMOL/L (20-31); CHLORIDE LEVEL 101 MMOL/L (98-107); CREATININE FOR GFR 1.08 MG/DL (0.70-1.30); GLOMERULAR FILTRATION RATE > 60.0 (>42); GLUCOSE, FASTING 78 MG/DL (74-106); POTASSIUM SERUM 4.1 MMOL/L (3.5-5.1); SODIUM LEVEL 139 MMOL/L (136-145)
== END ==
LOC: M WUC 14:38
PROVIDERS: ATTEND Physician Assistant
DX: I50.9 Heart failure, unspecified (principal); I48.91 Unspecified atrial fibrillation

== ENCOUNTER → 2022-09-17 | Outpatient (CLI) | payer MEDICARE, OTHER ==
[2022-09-17 17:25] LABS: BLOOD UREA NITROGEN 31 MG/DL (9-23); CALCIUM LEVEL 9.1 MG/DL (8.3-10.6); CARBON DIOXIDE LEVEL 30 MMOL/L (20-31); CHLORIDE LEVEL 102 MMOL/L (98-107); CREATININE FOR GFR 1.17 MG/DL (0.70-1.30); GLOMERULAR FILTRATION RATE > 60.0 (>42); GLUCOSE, FASTING 120 MG/DL (74-106); MAGNESIUM LEVEL 2.1 MG/DL (1.8-2.4); POTASSIUM SERUM 4.1 MMOL/L (3.5-5.1); SODIUM LEVEL 138 MMOL/L (136-145)
== END ==
LOC: M WUC 14:21
PROVIDERS: ATTEND Internal Medicine Cardiovascular Disease
DX: I48.0 Paroxysmal atrial fibrillation (principal); I50.32 Chronic diastolic (congestive) heart failure

== ENCOUNTER → 2022-10-12 | Outpatient (REF) | payer MEDICARE, OTHER ==
[2022-10-12 17:12] LABS: BLOOD UREA NITROGEN 26 MG/DL (9-23); CALCIUM LEVEL 9.3 MG/DL (8.3-10.6); CARBON DIOXIDE LEVEL 32 MMOL/L (20-31); CHLORIDE LEVEL 102 MMOL/L (98-107); CREATININE FOR GFR 1.05 MG/DL (0.70-1.30); GLOMERULAR FILTRATION RATE > 60.0 (>42); GLUCOSE, FASTING 99 MG/DL (74-106); MAGNESIUM LEVEL 2.1 MG/DL (1.8-2.4); POTASSIUM SERUM 3.7 MMOL/L (3.5-5.1); SODIUM LEVEL 141 MMOL/L (136-145)
== END ==
LOC: M LABWUC 16:24
PROVIDERS: ATTEND Internal Medicine Cardiovascular Disease
DX: I48.0 Paroxysmal atrial fibrillation (principal); I50.32 Chronic diastolic (congestive) heart failure

== ENCOUNTER → 2022-11-06 | Outpatient (CLI) | payer MEDICARE, OTHER ==
[2022-11-06 17:48] LABS: BLOOD UREA NITROGEN 23 MG/DL (9-23); CARBON DIOXIDE LEVEL 28 MMOL/L (20-31); CHLORIDE LEVEL 105 MMOL/L (98-107); CREATININE FOR GFR 0.96 MG/DL (0.70-1.30); GLOMERULAR FILTRATION RATE > 60.0 (>42); GLUCOSE, FASTING 102 MG/DL (74-106); MAGNESIUM LEVEL 2.1 MG/DL (1.8-2.4); POTASSIUM SERUM 3.7 MMOL/L (3.5-5.1); SODIUM LEVEL 140 MMOL/L (136-145)
== END ==
LOC: M WUC 14:22
PROVIDERS: ATTEND Internal Medicine Cardiovascular Disease
DX: I48.0 Paroxysmal atrial fibrillation (principal); I50.32 Chronic diastolic (congestive) heart failure

== ENCOUNTER → 2022-11-08 | Outpatient (CLI) | payer MEDICARE, OTHER ==
[2022-11-08 19:44] LABS: HEMATOCRIT 38.3 % (42.0-52.0); HEMOGLOBIN 12.5 g/dl (13.5-17.5); MEAN CORPUSCULAR HEMOGLOBIN 32.5 pg (27.0-33.0); MEAN CORPUSCULAR HGB CONC 32.6 g/dl (32.0-36.5); MEAN CORPUSCULAR VOLUME 99.5 fl (80.0-96.0); PLATELET COUNT, AUTOMATED 219 10^3/uL (150-450); RED BLOOD COUNT 3.85 10^6/uL (4.30-6.10); WHITE BLOOD COUNT 5.7 10^3/uL (4.0-10.0)
[2022-11-08 20:06] LABS: BLOOD UREA NITROGEN 24 MG/DL (9-23); CALCIUM LEVEL 8.9 MG/DL (8.3-10.6); CARBON DIOXIDE LEVEL 29 MMOL/L (20-31); CHLORIDE LEVEL 105 MMOL/L (98-107); GLOMERULAR FILTRATION RATE > 60.0 (>42); GLUCOSE, FASTING 100 MG/DL (74-106); POTASSIUM SERUM 3.9 MMOL/L (3.5-5.1); SODIUM LEVEL 142 MMOL/L (136-145)
== END ==
LOC: M WUC 15:34
PROVIDERS: ATTEND Nurse Practitioner Family
DX: I50.30 Unspecified diastolic (congestive) heart failure (principal); I48.20 Chronic atrial fibrillation, unspecified

== ENCOUNTER → 2022-12-25 | Outpatient (CLI) | payer MEDICARE, OTHER ==
[2022-12-25 19:16] LABS: BLOOD UREA NITROGEN 23 MG/DL (9-23); CALCIUM LEVEL 9.1 MG/DL (8.3-10.6); CARBON DIOXIDE LEVEL 28 MMOL/L (20-31); CHLORIDE LEVEL 103 MMOL/L (98-107); CREATININE FOR GFR 1.19 MG/DL (0.70-1.30); GLOMERULAR FILTRATION RATE > 60.0 (>42); GLUCOSE, FASTING 108 MG/DL (74-106); POTASSIUM SERUM 4.2 MMOL/L (3.5-5.1); SODIUM LEVEL 140 MMOL/L (136-145)
[2022-12-25 19:24] LABS: BASO # 0.1 10^3/uL (0.0-0.2); BASO % 0.9 % (0.0-1.0); EOS # 0.2 10^3/uL (0.0-0.5); EOS % 2.9 % (0.0-3.0); HEMATOCRIT 39.1 % (42.0-52.0); HEMOGLOBIN 12.7 g/dl (13.5-17.5); LYMPH # 1.3 10^3/uL (1.5-5.0); LYMPH % 23.5 % (24.0-44.0); MEAN CORPUSCULAR HEMOGLOBIN 32.6 pg (27.0-33.0); MEAN CORPUSCULAR HGB CONC 32.5 g/dl (32.0-36.5); MEAN CORPUSCULAR VOLUME 100.3 fl (80.0-96.0); MONO # 0.5 10^3/uL (0.0-0.8); MONO % 9.5 % (2.0-8.0); NEUTROPHILS # 3.5 10^3/uL (1.5-8.5); PLATELET COUNT, AUTOMATED 202 10^3/uL (150-450); WHITE BLOOD COUNT 5.6 10^3/uL (4.0-10.0)
== END ==
LOC: M WUC 15:18
PROVIDERS: ATTEND Internal Medicine Cardiovascular Disease
DX: I48.3 Typical atrial flutter (principal); I48.0 Paroxysmal atrial fibrillation

== ENCOUNTER → 2022-12-25 | Outpatient (CLI) | payer MEDICARE, OTHER ==
[2022-12-25 19:17] LABS: ALBUMIN 4.4 G/DL (3.2-5.2); ALKALINE PHOSPHATASE 110 U/L (46-116); ALT/SGPT 16 U/L (7.0-40); AST/SGOT 19 U/L (<34); BILIRUBIN,TOTAL 0.8 MG/DL (0.3-1.2); BLOOD UREA NITROGEN 24 MG/DL (9-23); CALCIUM LEVEL 9.3 MG/DL (8.3-10.6); CARBON DIOXIDE LEVEL 29 MMOL/L (20-31); CHLORIDE LEVEL 104 MMOL/L (98-107); CHOLESTEROL LEVEL 130 MG/DL (<200); CREATININE FOR GFR 1.18 MG/DL (0.70-1.30); GLOMERULAR FILTRATION RATE > 60.0 (>42); GLUCOSE, FASTING 110 MG/DL (74-106); HDL CHOLESTEROL 39.3 MG/DL (>40); LDL CHOLESTEROL 68.7 MG/DL (<100); NON-HDL-C 90.7 MG/DL; POTASSIUM SERUM 4.2 MMOL/L (3.5-5.1); SODIUM LEVEL 140 MMOL/L (136-145); TOTAL PROTEIN 7.5 G/DL (5.7-8.2); TRIGLYCERIDES LEVEL 110 MG/DL (<150)
[2022-12-25 19:23] LABS: BASO % 0.7 % (0.0-1.0); EOS # 0.2 10^3/uL (0.0-0.5); EOS % 3.7 % (0.0-3.0); HEMATOCRIT 38.2 % (42.0-52.0); HEMOGLOBIN 12.7 g/dl (13.5-17.5); LYMPH # 1.3 10^3/uL (1.5-5.0); LYMPH % 23.5 % (24.0-44.0); MEAN CORPUSCULAR HEMOGLOBIN 33.5 pg (27.0-33.0); MEAN CORPUSCULAR HGB CONC 33.2 g/dl (32.0-36.5); MEAN CORPUSCULAR VOLUME 100.8 fl (80.0-96.0); MONO # 0.5 10^3/uL (0.0-0.8); MONO % 9.1 % (2.0-8.0); NEUTROPHILS # 3.6 10^3/uL (1.5-8.5); NEUTROPHILS % 62.6 % (36.0-66.0); PLATELET COUNT, AUTOMATED 199 10^3/uL (150-450); RED BLOOD COUNT 3.79 10^6/uL (4.30-6.10); WHITE BLOOD COUNT 5.7 10^3/uL (4.0-10.0)
[2022-12-25 19:34] LABS: HEMOGLOBIN A1c 5.4 % (4.0-6.0)
== END ==
LOC: M WUC 15:13
PROVIDERS: ATTEND Family Medicine
DX: I10 Essential (primary) hypertension (principal); R73.01 Impaired fasting glucose

== ENCOUNTER → 2023-04-19 | Outpatient (REF) | payer MEDICARE, OTHER ==
[~2023-04-19] MED LIST changes: +FURO80TA2 PO; -K-TA10TA2 PO; +POTA-165 PO
== END ==
LOC: M SFHCDERM 17:27
PROVIDERS: ATTEND Nurse Practitioner Family
DX: L82.1 Other seborrheic keratosis (principal); L57.8 Other skin changes due to chronic exposure to nonionizing radiation

== ENCOUNTER → 2023-05-23 | Outpatient (CLI) | payer MEDICARE, OTHER ==
[2023-05-23 17:34] LABS: BASO # 0.1 10^3/uL (0.0-0.2); EOS # 0.2 10^3/uL (0.0-0.5); EOS % 3.8 % (0.0-3.0); HEMATOCRIT 38.6 % (42.0-52.0); HEMOGLOBIN 12.4 g/dl (13.5-17.5); LYMPH # 1.4 10^3/uL (1.5-5.0); LYMPH % 25.8 % (24.0-44.0); MEAN CORPUSCULAR HEMOGLOBIN 33.6 pg (27.0-33.0); MEAN CORPUSCULAR HGB CONC 32.1 g/dl (32.0-36.5); MEAN CORPUSCULAR VOLUME 104.6 fl (80.0-96.0); MONO # 0.7 10^3/uL (0.0-0.8); NEUTROPHILS % 56.2 % (36.0-66.0); PLATELET COUNT, AUTOMATED 198 10^3/uL (150-450); RED BLOOD COUNT 3.69 10^6/uL (4.30-6.10); WHITE BLOOD COUNT 5.2 10^3/uL (4.0-10.0)
[2023-05-23 17:58] LABS: ALBUMIN 4.1 G/DL (3.2-5.2); ALKALINE PHOSPHATASE 100 U/L (46-116); ALT/SGPT 14 U/L (7.0-40); AST/SGOT 13 U/L (<34); BILIRUBIN,TOTAL 0.5 MG/DL (0.3-1.2); BLOOD UREA NITROGEN 35 MG/DL (9-23); CALCIUM LEVEL 9.4 MG/DL (8.3-10.6); CARBON DIOXIDE LEVEL 27 MMOL/L (20-31); CHLORIDE LEVEL 105 MMOL/L (98-107); CREATININE FOR GFR 1.05 MG/DL (0.70-1.30); GLOMERULAR FILTRATION RATE > 60.0 (>42); GLUCOSE, FASTING 121 MG/DL (74-106); POTASSIUM SERUM 4.6 MMOL/L (3.5-5.1); SODIUM LEVEL 142 MMOL/L (136-145); TOTAL PROTEIN 7.6 G/DL (5.7-8.2)
[2023-05-27 19:06] LABS: FREE KAPPA LIGHT CHAINS SERUM 11.4 mg/L (3.3-19.4); FREE LAMBDA LIGHT CHAINS SERUM 37.5 mg/L (5.7-26.3)
== END ==
LOC: M WUC 11:04
PROVIDERS: ATTEND Internal Medicine Hematology
DX: D47.2 Monoclonal gammopathy (principal); M86.272 Subacute osteomyelitis, left ankle and foot; M79.89 Other specified soft tissue disorders; M77.32 Calcaneal spur, left foot; M20.42 Other hammer toe(s) (acquired), left foot; M21.6X2 Other acquired deformities of left foot; S93.106A Unspecified dislocation of unspecified toe(s), initial encounter; X58.XXXA Exposure to other specified factors, initial encounter; Y92.9 Unspecified place or not applicable; Y93.9 Activity, unspecified; Y99.9 Unspecified external cause status

== ENCOUNTER → 2023-05-23 | Outpatient (CLI) | payer MEDICARE, OTHER ==
[2023-05-23 17:59] LABS: BLOOD UREA NITROGEN 35 MG/DL (9-23); CALCIUM LEVEL 9.4 MG/DL (8.3-10.6); CARBON DIOXIDE LEVEL 28 MMOL/L (20-31); CHLORIDE LEVEL 105 MMOL/L (98-107); CREATININE FOR GFR 1.07 MG/DL (0.70-1.30); GLOMERULAR FILTRATION RATE > 60.0 (>42); GLUCOSE, FASTING 122 MG/DL (74-106); MAGNESIUM LEVEL 2.5 MG/DL (1.8-2.4); POTASSIUM SERUM 4.6 MMOL/L (3.5-5.1); SODIUM LEVEL 141 MMOL/L (136-145)
== END ==
LOC: M WUC 11:15
PROVIDERS: ATTEND Internal Medicine Cardiovascular Disease
DX: I48.0 Paroxysmal atrial fibrillation (principal); I50.32 Chronic diastolic (congestive) heart failure

== ENCOUNTER → 2023-09-17 | Outpatient (REF) | payer MEDICARE, OTHER ==
[2023-09-17 17:00] LABS: ALBUMIN 4.2 G/DL (3.2-5.2)
[2023-09-17 17:02] LABS: BASO # 0.1 10^3/uL (0.0-0.2); BASO % 0.9 % (0.0-1.0); EOS # 0.3 10^3/uL (0.0-0.5); EOS % 4.3 % (0.0-3.0); HEMATOCRIT 38.6 % (42.0-52.0); HEMOGLOBIN 12.7 g/dl (13.5-17.5); LYMPH # 1.7 10^3/uL (1.5-5.0); LYMPH % 29.9 % (24.0-44.0); MEAN CORPUSCULAR HEMOGLOBIN 33.2 pg (27.0-33.0); MEAN CORPUSCULAR HGB CONC 32.9 g/dl (32.0-36.5); MONO # 0.7 10^3/uL (0.0-0.8); MONO % 12.6 % (2.0-8.0); PLATELET COUNT, AUTOMATED 213 10^3/uL (150-450); RED BLOOD COUNT 3.82 10^6/uL (4.30-6.10); WHITE BLOOD COUNT 5.8 10^3/uL (4.0-10.0)
[2023-09-17 17:07] LABS: PERCENT SATURATION 31.3 % (19.7-50.0)
[2023-09-17 17:10] LABS: FERRITIN 192.7 NG/ML (10.5-307.3)
== END ==
LOC: M LABWUC 16:27
PROVIDERS: ATTEND Orthopaedic Surgery
DX: Z01.818 Encounter for other preprocedural examination (principal); M25.559 Pain in unspecified hip; M16.12 Unilateral primary osteoarthritis, left hip

== ENCOUNTER → 2023-12-09 | Outpatient (REF) | payer MEDICARE, OTHER ==
[2023-12-09 17:42] LABS: ALBUMIN 3.8 G/DL (3.2-5.2); ALKALINE PHOSPHATASE 98 U/L (46-116); ALT/SGPT 15 U/L (7.0-40); AST/SGOT 12 U/L (<34); BILIRUBIN,TOTAL 0.4 MG/DL (0.3-1.2); BLOOD UREA NITROGEN 36 MG/DL (9-23); CARBON DIOXIDE LEVEL 26 MMOL/L (20-31); CHLORIDE LEVEL 110 MMOL/L (98-107); CREATININE FOR GFR 1.14 MG/DL (0.70-1.30); GLOMERULAR FILTRATION RATE > 60.0 (>42); GLUCOSE, FASTING 172 MG/DL (74-106); POTASSIUM SERUM 4.4 MMOL/L (3.5-5.1); SODIUM LEVEL 143 MMOL/L (136-145); TOTAL PROTEIN 7.7 G/DL (5.7-8.2)
[2023-12-09 17:50] LABS: BASO # 0.1 10^3/uL (0.0-0.2); BASO % 0.8 % (0.0-1.0); EOS # 0.2 10^3/uL (0.0-0.5); EOS % 2.6 % (0.0-3.0); HEMATOCRIT 33.9 % (42.0-52.0); HEMOGLOBIN 10.7 g/dl (13.5-17.5); LYMPH # 1.7 10^3/uL (1.5-5.0); LYMPH % 26.3 % (24.0-44.0); MEAN CORPUSCULAR HEMOGLOBIN 32.9 pg (27.0-33.0); MEAN CORPUSCULAR HGB CONC 31.6 g/dl (32.0-36.5); MEAN CORPUSCULAR VOLUME 104.3 fl (80.0-96.0); MONO # 0.5 10^3/uL (0.0-0.8); MONO % 7.6 % (2.0-8.0); NEUTROPHILS # 4.1 10^3/uL (1.5-8.5); NEUTROPHILS % 61.9 % (36.0-66.0); PLATELET COUNT, AUTOMATED 209 10^3/uL (150-450); RED BLOOD COUNT 3.25 10^6/uL (4.30-6.10); WHITE BLOOD COUNT 6.6 10^3/uL (4.0-10.0)
== END ==
LOC: M LABWUC 16:32
PROVIDERS: ATTEND Internal Medicine Cardiovascular Disease
DX: I48.0 Paroxysmal atrial fibrillation (principal)

== ENCOUNTER → 2024-01-01 | Outpatient (CLI) | payer MEDICARE, OTHER ==
[2024-01-01 12:36] LABS: BASO % 0.8 % (0.0-1.0); EOS # 0.2 10^3/uL (0.0-0.5); EOS % 4.8 % (0.0-3.0); HEMATOCRIT 34.4 % (42.0-52.0); HEMOGLOBIN 11.3 g/dl (13.5-17.5); LYMPH # 1.5 10^3/uL (1.5-5.0); LYMPH % 28.7 % (24.0-44.0); MEAN CORPUSCULAR HEMOGLOBIN 33.9 pg (27.0-33.0); MEAN CORPUSCULAR HGB CONC 32.8 g/dl (32.0-36.5); MEAN CORPUSCULAR VOLUME 103.3 fl (80.0-96.0); MONO # 0.6 10^3/uL (0.0-0.8); MONO % 10.9 % (2.0-8.0); NEUTROPHILS # 2.8 10^3/uL (1.5-8.5); NEUTROPHILS % 54.6 % (36.0-66.0); PLATELET COUNT, AUTOMATED 188 10^3/uL (150-450); RED BLOOD COUNT 3.33 10^6/uL (4.30-6.10); WHITE BLOOD COUNT 5.1 10^3/uL (4.0-10.0)
[2024-01-01 13:14] LABS: CREATININE, URINE 33.9 MG/DL
[2024-01-01 13:15] LABS: ALKALINE PHOSPHATASE 112 U/L (46-116); ALT/SGPT 18 U/L (7.0-40); AST/SGOT 9 U/L (<34); BILIRUBIN,TOTAL 0.5 MG/DL (0.3-1.2); BLOOD UREA NITROGEN 39 MG/DL (9-23); CALCIUM LEVEL 9.4 MG/DL (8.3-10.6); CARBON DIOXIDE LEVEL 29 MMOL/L (20-31); CHLORIDE LEVEL 103 MMOL/L (98-107); CHOLESTEROL LEVEL 144 MG/DL (<200); CREATININE FOR GFR 1.17 MG/DL (0.70-1.30); GLOMERULAR FILTRATION RATE > 60.0 (>42); GLUCOSE, FASTING 159 MG/DL (74-106); LDL CHOLESTEROL 71.6 MG/DL (<100); POTASSIUM SERUM 3.9 MMOL/L (3.5-5.1); SODIUM LEVEL 139 MMOL/L (136-145); TOTAL PROTEIN 7.9 G/DL (5.7-8.2); TRIGLYCERIDES LEVEL 162 MG/DL (<150)
[2024-01-01 13:17] LABS: MAU/CREAT RATIO 94.3 MCG/MG (0.0-30.0)
== END ==
LOC: M WUC 10:10
PROVIDERS: ATTEND Family Medicine
DX: E11.9 Type 2 diabetes mellitus without complications (principal)

== ENCOUNTER → 2024-01-16 | Outpatient (CLI) | payer MEDICARE, OTHER ==
[2024-01-16 17:36] LABS: BASO % 0.4 % (0.0-1.0); EOS # 0.3 10^3/uL (0.0-0.5); EOS % 7.4 % (0.0-3.0); HEMATOCRIT 32.9 % (42.0-52.0); HEMOGLOBIN 10.5 g/dl (13.5-17.5); LYMPH # 1.1 10^3/uL (1.5-5.0); LYMPH % 25.6 % (24.0-44.0); MEAN CORPUSCULAR HEMOGLOBIN 33.5 pg (27.0-33.0); MEAN CORPUSCULAR HGB CONC 31.9 g/dl (32.0-36.5); MEAN CORPUSCULAR VOLUME 105.1 fl (80.0-96.0); MONO # 0.5 10^3/uL (0.0-0.8); MONO % 10.3 % (2.0-8.0); NEUTROPHILS # 2.5 10^3/uL (1.5-8.5); NEUTROPHILS % 56.1 % (36.0-66.0); PLATELET COUNT, AUTOMATED 164 10^3/uL (150-450); RED BLOOD COUNT 3.13 10^6/uL (4.30-6.10); WHITE BLOOD COUNT 4.5 10^3/uL (4.0-10.0)
[2024-01-16 17:38] LABS: ALBUMIN 4.1 G/DL (3.2-5.2); ALKALINE PHOSPHATASE 109 U/L (46-116); ALT/SGPT 19 U/L (7.0-40); AST/SGOT 13 U/L (<34); BILIRUBIN,TOTAL 0.6 MG/DL (0.3-1.2); BLOOD UREA NITROGEN 35 MG/DL (9-23); CALCIUM LEVEL 9.1 MG/DL (8.3-10.6); CARBON DIOXIDE LEVEL 28 MMOL/L (20-31); CHLORIDE LEVEL 104 MMOL/L (98-107); GLOMERULAR FILTRATION RATE > 60.0 (>42); GLUCOSE, FASTING 137 MG/DL (74-106); MAGNESIUM LEVEL 2.2 MG/DL (1.8-2.4); POTASSIUM SERUM 3.8 MMOL/L (3.5-5.1); SODIUM LEVEL 139 MMOL/L (136-145); TOTAL PROTEIN 7.9 G/DL (5.7-8.2)
== END ==
LOC: M WUC 11:57
PROVIDERS: ATTEND Internal Medicine Cardiovascular Disease
DX: I50.32 Chronic diastolic (congestive) heart failure (principal)

== ENCOUNTER → 2024-01-24 | Outpatient (CLI) | payer MEDICARE, OTHER ==
[2024-01-24 17:13] LABS: BASO % 0.9 % (0.0-1.0); EOS # 0.2 10^3/uL (0.0-0.5); EOS % 5.2 % (0.0-3.0); HEMATOCRIT 32.9 % (42.0-52.0); HEMOGLOBIN 10.4 g/dl (13.5-17.5); LYMPH # 1.4 10^3/uL (1.5-5.0); LYMPH % 31.9 % (24.0-44.0); MEAN CORPUSCULAR HGB CONC 31.6 g/dl (32.0-36.5); MEAN CORPUSCULAR VOLUME 107.5 fl (80.0-96.0); MONO # 0.5 10^3/uL (0.0-0.8); MONO % 11.1 % (2.0-8.0); NEUTROPHILS # 2.2 10^3/uL (1.5-8.5); NEUTROPHILS % 50.4 % (36.0-66.0); PLATELET COUNT, AUTOMATED 185 10^3/uL (150-450); RED BLOOD COUNT 3.06 10^6/uL (4.30-6.10); WHITE BLOOD COUNT 4.4 10^3/uL (4.0-10.0)
[2024-01-24 17:33] LABS: BLOOD UREA NITROGEN 27 MG/DL (9-23); CARBON DIOXIDE LEVEL 27 MMOL/L (20-31); CHLORIDE LEVEL 108 MMOL/L (98-107); CREATININE FOR GFR 1.09 MG/DL (0.70-1.30); GLOMERULAR FILTRATION RATE > 60.0 (>42); GLUCOSE, FASTING 162 MG/DL (74-106); POTASSIUM SERUM 4.6 MMOL/L (3.5-5.1); SODIUM LEVEL 141 MMOL/L (136-145)
== END ==
LOC: M WUC 11:30
PROVIDERS: ATTEND Internal Medicine Cardiovascular Disease
DX: I48.0 Paroxysmal atrial fibrillation (principal); I50.32 Chronic diastolic (congestive) heart failure

== ENCOUNTER → 2024-01-30 | Outpatient (REF) | payer MEDICARE, OTHER ==
[2024-01-30 19:27] LABS: BASO % 0.6 % (0.0-1.0); EOS # 0.2 10^3/uL (0.0-0.5); EOS % 4.5 % (0.0-3.0); HEMATOCRIT 35.5 % (42.0-52.0); HEMOGLOBIN 11.1 g/dl (13.5-17.5); LYMPH # 1.6 10^3/uL (1.5-5.0); MEAN CORPUSCULAR HEMOGLOBIN 33.8 pg (27.0-33.0); MEAN CORPUSCULAR HGB CONC 31.3 g/dl (32.0-36.5); MEAN CORPUSCULAR VOLUME 108.2 fl (80.0-96.0); MONO # 0.6 10^3/uL (0.0-0.8); MONO % 12.3 % (2.0-8.0); NEUTROPHILS # 2.6 10^3/uL (1.5-8.5); NEUTROPHILS % 50.4 % (36.0-66.0); PLATELET COUNT, AUTOMATED 197 10^3/uL (150-450); RED BLOOD COUNT 3.28 10^6/uL (4.30-6.10); WHITE BLOOD COUNT 5.1 10^3/uL (4.0-10.0)
[2024-01-30 20:11] LABS: PERCENT SATURATION 27.9 % (19.7-50.0)
== END ==
LOC: M LABWUC 16:29
PROVIDERS: ATTEND Internal Medicine Cardiovascular Disease
DX: D64.9 Anemia, unspecified (principal)

== ENCOUNTER → 2024-03-26 | Outpatient (REF) | payer MEDICARE, OTHER ==
[~2024-03-26] MED LIST changes: +ASPI81CH33 PO; +BUME2TAB3; +CLOP75TA2; +DICL20GE TP; +FERR32TA PO
[2024-03-26 13:57] LABS: BASO % 0.3 % (0.0-1.0); EOS # 0.1 10^3/uL (0.0-0.5); EOS % 1.8 % (0.0-3.0); HEMATOCRIT 31.5 % (42.0-52.0); HEMOGLOBIN 10.4 g/dl (13.5-17.5); LYMPH % 31.8 % (24.0-44.0); MEAN CORPUSCULAR HEMOGLOBIN 34.3 pg (27.0-33.0); MONO # 0.3 10^3/uL (0.0-0.8); MONO % 8.9 % (2.0-8.0); NEUTROPHILS # 1.9 10^3/uL (1.5-8.5); NEUTROPHILS % 56.9 % (36.0-66.0); PLATELET COUNT, AUTOMATED 149 10^3/uL (150-450); RED BLOOD COUNT 3.03 10^6/uL (4.30-6.10); WHITE BLOOD COUNT 3.3 10^3/uL (4.0-10.0)
[2024-03-26 14:08] LABS: IRON (FE) 52 UG/DL (65-175); PERCENT SATURATION 15.4 % (19.7-50.0); TOTAL IRON BINDING CAPACITY 337 UG/DL (250-425)
[2024-03-26 14:10] LABS: FOLATE > 24.0 NG/ML (>5.4)
[2024-03-26 14:11] LABS: VITAMIN B12 LEVEL 956 PG/ML (211-911)
== END ==
LOC: M LAB REF 13:11
PROVIDERS: ATTEND Family Medicine
DX: D64.9 Anemia, unspecified (principal)

== ENCOUNTER → 2024-08-05 | Outpatient (CLI) | payer MEDICARE, OTHER ==
[~2024-08-05] MED LIST changes: +GABA-1172; +GABA-1172 PO; -GABA-282; -GABA-282 PO
== END ==
LOC: M ONCR 14:19
PROVIDERS: ATTEND General Practice
DX: D03.39 Melanoma in situ of other parts of face (principal); Z85.79 Personal history of other malignant neoplasms of lymphoid, hematopoietic and related tissues; R59.0 Localized enlarged lymph nodes; Z98.890 Other specified postprocedural states; Z80.42 Family history of malignant neoplasm of prostate; Z79.899 Other long term (current) drug therapy; Z95.0 Presence of cardiac pacemaker; Z87.891 Personal history of nicotine dependence

== ENCOUNTER → 2024-08-12 | Outpatient (REF) | payer MEDICARE, OTHER ==
[2024-08-12 18:19] LABS: BLOOD UREA NITROGEN 33 MG/DL (9-23); CALCIUM LEVEL 9.2 MG/DL (8.3-10.6); CARBON DIOXIDE LEVEL 29 MMOL/L (20-31); CHLORIDE LEVEL 102 MMOL/L (98-107); CREATININE FOR GFR 1.15 MG/DL (0.70-1.30); GLOMERULAR FILTRATION RATE > 60.0 (>42); GLUCOSE, FASTING 223 MG/DL (74-106); MAGNESIUM LEVEL 2.2 MG/DL (1.8-2.4); POTASSIUM SERUM 3.8 MMOL/L (3.5-5.1); SODIUM LEVEL 141 MMOL/L (136-145)
== END ==
LOC: M LABWUC 16:21
PROVIDERS: ATTEND Internal Medicine Cardiovascular Disease
DX: I50.32 Chronic diastolic (congestive) heart failure (principal)

== ENCOUNTER → 2024-09-10 | Outpatient (CLI) | payer MEDICARE, OTHER | LOC: M ONCR 13:42 | PROVIDERS: ATTEND General Practice | DX: D03.39 Melanoma in situ of other parts of face (principal); C34.90 Malignant neoplasm of unspecified part of unspecified bronchus or lung; D47.2 Monoclonal gammopathy; Z98.890 Other specified postprocedural states; Z79.51 Long term (current) use of inhaled steroids; Z79.899 Other long term (current) drug therapy ==

== ENCOUNTER → 2024-11-11 | Outpatient (CLI) | payer MEDICARE, OTHER ==
[2024-11-11 15:08] LABS: HEMATOCRIT 21.9 % (42.0-52.0); HEMOGLOBIN 7.1 g/dl (13.5-17.5); MEAN CORPUSCULAR HEMOGLOBIN 35.1 pg (27.0-33.0); MEAN CORPUSCULAR HGB CONC 32.4 g/dl (32.0-36.5); MEAN CORPUSCULAR VOLUME 108.4 fl (80.0-96.0); PLATELET COUNT, AUTOMATED 144 10^3/uL (150-450); RED BLOOD COUNT 2.02 10^6/uL (4.30-6.10); WHITE BLOOD COUNT 15.8 10^3/uL (4.0-10.0)
[2024-11-11 15:37] LABS: ALBUMIN 3.7 G/DL (3.2-5.2); BILIRUBIN,TOTAL 0.4 MG/DL (0.3-1.2); CREATININE FOR GFR 1.08 MG/DL (0.70-1.30); FREE T4 1.17 NG/DL (0.89-1.76); GLOMERULAR FILTRATION RATE 70.2 (>42); POTASSIUM SERUM 3.9 MMOL/L (3.5-5.1); TOTAL PROTEIN 7.1 G/DL (5.7-8.2)
[2024-11-11 15:38] LABS: THYROID STIMULATING HORMONE 4.254 uIU/ML (0.55-4.78)
[2024-11-11 15:41] LABS: TOTAL T3 88.1 NG/DL (60.0-181.0)
[2024-11-11 15:44] LABS: ANISOCYTOSIS 4+; LYMPHOCYTES 18 % (16-44); MONOCYTES 5 % (0-5); NEUTROPHILS 70 % (28-66); PLATELET ESTIMATE NORMAL (NORMAL)
[2024-11-11 15:46] LABS: POLYCHROMASIA 1+; STOMATOCYTES 1+
== END ==
LOC: M WUC 11:41
DX: C34.90 Malignant neoplasm of unspecified part of unspecified bronchus or lung (principal); D64.9 Anemia, unspecified

== ENCOUNTER → 2024-11-23 | Outpatient (CLI) | payer MEDICARE, OTHER ==
[~2024-11-23] MED LIST changes: -BYDU2INJ7; +EXEN2AUT
[2024-11-23 13:08] LABS: BASO # 0.1 10^3/uL (0.0-0.2); BASO % 0.8 % (0.0-1.0); EOS # 0.1 10^3/uL (0.0-0.5); EOS % 0.8 % (0.0-3.0); HEMATOCRIT 29.2 % (42.0-52.0); LYMPH # 1.9 10^3/uL (1.5-5.0); LYMPH % 23.8 % (24.0-44.0); MEAN CORPUSCULAR HEMOGLOBIN 34.9 pg (27.0-33.0); MEAN CORPUSCULAR HGB CONC 30.8 g/dl (32.0-36.5); MEAN CORPUSCULAR VOLUME 113.2 fl (80.0-96.0); MONO # 0.8 10^3/uL (0.0-0.8); MONO % 9.9 % (2.0-8.0); NEUTROPHILS % 64.1 % (36.0-66.0); PLATELET COUNT, AUTOMATED 175 10^3/uL (150-450); RED BLOOD COUNT 2.58 10^6/uL (4.30-6.10); WHITE BLOOD COUNT 7.8 10^3/uL (4.0-10.0)
[2024-11-23 13:42] LABS: THYROID STIMULATING HORMONE 2.681 uIU/ML (0.55-4.78)
[2024-11-23 13:43] LABS: FREE T4 1.11 NG/DL (0.89-1.76)
[2024-11-23 13:47] LABS: ALBUMIN 3.4 G/DL (3.2-5.2); BILIRUBIN,TOTAL 0.8 MG/DL (0.3-1.2); CREATININE FOR GFR 0.93 MG/DL (0.70-1.30); GLOMERULAR FILTRATION RATE 84.1 (>42); POTASSIUM SERUM 4.3 MMOL/L (3.5-5.1)
[2024-11-23 17:08] LABS: TOTAL T3 114.2 NG/DL (60.0-181.0)
== END ==
LOC: M WUC 09:48
PROVIDERS: ATTEND Internal Medicine Hematology & Oncology
DX: C34.90 Malignant neoplasm of unspecified part of unspecified bronchus or lung (principal); D64.9 Anemia, unspecified

== ENCOUNTER → 2024-11-24 | Outpatient (REF) | payer MEDICARE, OTHER | LOC: M LABWUC 17:35 | PROVIDERS: ATTEND Internal Medicine Hematology & Oncology | DX: C34.90 Malignant neoplasm of unspecified part of unspecified bronchus or lung (principal); D64.9 Anemia, unspecified ==

== ENCOUNTER → 2024-12-03 | Outpatient (CLI) | payer MEDICARE, OTHER ==
[2024-12-03 18:20] LABS: HEMOGLOBIN 9.5 g/dl (13.5-17.5); MEAN CORPUSCULAR HEMOGLOBIN 34.8 pg (27.0-33.0); MEAN CORPUSCULAR HGB CONC 31.7 g/dl (32.0-36.5); MEAN CORPUSCULAR VOLUME 109.9 fl (80.0-96.0); PLATELET COUNT, AUTOMATED 114 10^3/uL (150-450); RED BLOOD COUNT 2.73 10^6/uL (4.30-6.10); WHITE BLOOD COUNT 7.4 10^3/uL (4.0-10.0)
[2024-12-03 18:25] LABS: BILIRUBIN,TOTAL 0.5 MG/DL (0.3-1.2); CALCIUM LEVEL 9.4 MG/DL (8.3-10.6); CREATININE FOR GFR 0.88 MG/DL (0.70-1.30); POTASSIUM SERUM 3.7 MMOL/L (3.5-5.1); TOTAL PROTEIN 7.8 G/DL (5.7-8.2)
[2024-12-03 18:28] LABS: FREE T4 1.18 NG/DL (0.89-1.76)
[2024-12-03 18:29] LABS: THYROID STIMULATING HORMONE 1.853 uIU/ML (0.55-4.78)
[2024-12-03 18:30] LABS: TOTAL T3 113.5 NG/DL (60.0-181.0)
[2024-12-03 19:53] LABS: BASOPHILS 1 % (0-1); EOSINOPHILS 1 % (0-3); LYMPHOCYTES 26 % (16-44); METAMYELOCYTES 4 % (0-0); MONOCYTES 14 % (0-5); NEUTROPHILS 46 % (28-66); PLATELET ESTIMATE DECREASED (NORMAL)
[2024-12-03 19:54] LABS: ANISOCYTOSIS 2+
== END ==
LOC: M WUC 13:41
PROVIDERS: ATTEND Internal Medicine Hematology & Oncology
DX: C34.90 Malignant neoplasm of unspecified part of unspecified bronchus or lung (principal); D64.9 Anemia, unspecified

== ENCOUNTER → 2024-12-08 | Outpatient (CLI) | payer MEDICARE, OTHER ==
[2024-12-08 15:02] LABS: HEMATOCRIT 30.3 % (42.0-52.0); HEMOGLOBIN 9.6 g/dl (13.5-17.5); MEAN CORPUSCULAR HGB CONC 31.7 g/dl (32.0-36.5); MEAN CORPUSCULAR VOLUME 110.6 fl (80.0-96.0); PLATELET COUNT, AUTOMATED 112 10^3/uL (150-450); RED BLOOD COUNT 2.74 10^6/uL (4.30-6.10); WHITE BLOOD COUNT 7.5 10^3/uL (4.0-10.0)
[2024-12-08 15:05] LABS: BILIRUBIN,TOTAL 0.5 MG/DL (0.3-1.2); CALCIUM LEVEL 9.5 MG/DL (8.3-10.6); CREATININE FOR GFR 0.92 MG/DL (0.70-1.30); GLOMERULAR FILTRATION RATE 85.1 (>42); TOTAL PROTEIN 7.5 G/DL (5.7-8.2)
[2024-12-08 15:07] LABS: FREE T4 1.21 NG/DL (0.89-1.76); TOTAL T3 116.4 NG/DL (60.0-181.0)
[2024-12-08 15:08] LABS: THYROID STIMULATING HORMONE 3.007 uIU/ML (0.55-4.78)
[2024-12-08 16:03] LABS: LYMPHOCYTES 33 % (16-44); MONOCYTES 7 % (0-5); NEUTROPHILS 59 % (28-66)
[2024-12-08 16:05] LABS: ANISOCYTOSIS 2+; PLATELET ESTIMATE DECREASED (NORMAL); STOMATOCYTES 1+
== END ==
LOC: M WUC 11:40
PROVIDERS: ATTEND Internal Medicine Hematology & Oncology
DX: C34.90 Malignant neoplasm of unspecified part of unspecified bronchus or lung (principal); D64.9 Anemia, unspecified